=== PATIENT | female | born 1945 | race Caucasian/White ===

== ENCOUNTER 2017-09-14 18:46 | Emergency (ER) | payer OTHER ==
--- OUTSIDE RECORDS SUMMARY | 2017-09-14 18:48 | XMS REPORT ---
:1945 Author Organization eClinicalWorks Care Team Providers Name Role Phone Merced Samuel Provider Role Unavailable Allergies No Known Allergies Problems Problem Type Condition Code Onset Dates Condition Status Problem Sciatica M54.30 Active Problem Obese E66.9 Active Problem Degenerative lumbar disc M51.36 Active Problem Bartholin cyst N75.0 Active Problem Encounter for HCV screening test Z11.59 Active for low risk patient Problem Local infection of the skin and L08.9 Active subcutaneous tissue, unspecified Problem Fatigue R53.83 Active Problem Hyperlipemia E78.5 Active Problem Migraine with status migrainosus, G43.901 Active not intractable, unspecified migraine type Problem Hypothyroidism E03.9 Active Problem Colon polyp K63.5 Active Problem Dupuytren's contracture M72.0 Active Assessment Other injury of unspecified body T14.8XXA Active region, initial encounter Assessment Local infection of the skin and L08.9 Active subcutaneous tissue, unspecified Problem Vitamin B 12 deficiency E53.8 Active Problem Gastro-esophageal reflux disease K21.9 Active without esophagitis Problem Neuropathy, peripheral G62.9 Active Problem Abnormal weight gain R63.5 Active Problem Achilles tendonitis M76.60 Active Problem Family history of diabetes Z83.3 Active mellitus Medications Medication Code System Code Instructions Start Date End Date Status Dosage Bactrim DS [facility] 22785248714 800-160 MG Orally September 13September 18, Active 1 tablet Twice a day 2017 2017 Results No Known Results Summary Purpose eClinicalWorks Submission
--- OUTSIDE RECORDS SUMMARY | 2017-09-14 18:48 | XMS REPORT ---
:1945 Author Organization eClinicalWorks Care Team Providers Name Role Phone Merced Samuel Provider Role Unavailable Allergies, Adverse Reactions, Alerts Substance Reaction Event Type Prednisone migraines Drug Allergy statin myalgias Drug Allergy Steroids migraine Drug Allergy Dexilant muscle cramps Drug Allergy Lyrica edema Drug Allergy Fentanyl migraine Drug Allergy Problems Problem Type Condition Code Onset Dates Condition Status Problem Vitamin B 12 deficiency E53.8 Active Problem Abnormal weight gain R63.5 Active Problem Gastro-esophageal reflux disease K21.9 Active without esophagitis Problem Fatigue R53.83 Active Assessment Insect bite, initial encounter W57.XXXA Active Problem Hyperlipemia E78.5 Active Problem Hypothyroidism E03.9 Active Problem Sciatica M54.30 Active Problem Family history of diabetes Z83.3 Active mellitus Problem Obese E66.9 Active Problem Degenerative lumbar disc M51.36 Active Assessment Dysuria R30.0 Active Problem Migraine with status migrainosus, G43.901 Active not intractable, unspecified migraine type Assessment Encounter for immunization Z23 Active Assessment Cough R05 Active Problem Colon polyp K63.5 Active Problem Dupuytren's contracture M72.0 Active Problem Encounter for HCV screening test Z11.59 Active for low risk patient Problem Neuropathy, peripheral G62.9 Active Problem Bartholin cyst N75.0 Active Problem Achilles tendonitis M76.60 Active Medications Medication Code Code Instructions Start End Status Dosage System Date Date Lexapro [facility] 83966436488 5 MG Orally Active not defined Imitrex [facility] 13779905124 25 MG Orally Active 1 tablet as needed Restasis [facility] 91073085766 0.05 % Active 1 drop into Ophthalmic affected eye Twice a day Xanax [facility] [address]-14 0.5 MG Orally Active 1 tablet Once a day [place] [facility] 98980048946 10-325 MG Active 1 tablet as Orally every 4 needed hours Mupirocin [facility] 90450967014 2 % Externally September 05August Active 1 application Two times a day 2017, to affected 2018 area Protonix [facility] [address]-40 Active not defined Artificial NDC 0 - Ophthalmic Active not defined Tear Solution Results Name Result Date Reference Range Unit Abnormality Flag URINALYSIS AUTO W/O SCOPE (23601) ----NIT N 20170906 ----URO 0.2 20170906 ----PROTEIN N 20170906 ----pH 7.5 20170906 ----BLO N 20170906 ----GLUCOSE N 20170906 ----PEDRITO Trace 20170906 ----BILIRUBIN N 20170906 ----KETONES N 20170906 ----SPECIFIC GRAVITY 1.015 20170906 Immunizations Vaccine Administration Date Prevnar 13 -Pneumonia Vaccine September 05, 2017 Summary Purpose eClinicalWorks Submission
--- NOTE | 2017-09-14 20:11 | ER ---
Nurse's Notes [facility] Name: Bety Ball Age: 72 yrs Sex: Female : 1945 Arrival Date: 09/14/2017 Time: 18:49 Bed 15 Private MD: Vivian Samuel Diagnosis: Suspected bite with non-healing wounds of right ankle Presentation: 09/14 18:52 Presenting complaint: Patient states: "I got bitten by something while I was fishing [employer] about 2 weeks ago and my doctor gave me antibiotics but it's not getting better". Pt states "Now I have red streaks on my right foot that I didn't have before". Transition of care: patient was not received from another setting of care. Onset of symptoms was August 2017. Risk Assessment: Do you want to hurt yourself or someone else? Patient reports no desire to harm self or others. Initial Sepsis Screen: Does the patient meet any 2 criteria? No. Patient's initial sepsis screen is negative. Does the patient have a suspected source of infection? No. Patient's initial sepsis screen is negative. Care prior to arrival: None. 18:52 Method Of Arrival: Ambulatory aa5 18:52 Acuity: TAY 3 aa5 Historical: - Allergies: 18:54 Fentanyl; aa5 18:54 Steroids (migraines); aa5 - PMHx: 18:54 "heart valve leaks"; Gastritis/Esophageal; Stomach Ulcers; aa5 - PSHx: 18:54 Right heel surgery; bilateral knee surgery; neck surgery for pinched nerves; Esophageal aa5 dilation; - Immunization history:: Last tetanus immunization: < 5 years ago. - Social history:: Smoking status: Patient/guardian denies using tobacco. - Ebola Screening: : No symptoms or risks identified at this time. - Family history:: not pertinent. - Hospitalizations: : No recent hospitalization is reported. Screenin:25 Abuse screen: Denies threats or abuse. Denies injuries from another. Nutritional aj1 screening: No deficits noted. Tuberculosis screening: No symptoms or risk factors identified. Fall Risk None identified. Assessment: 19:25 General: Appears in no apparent distress. uncomfortable. aj1 19:25 Pain: Complains of pain in right ankle Pain currently is 8 out of 10 on a pain scale. aj1 Neuro: Level of Consciousness is awake, alert, obeys commands. Cardiovascular: Patient's skin is warm and dry. Respiratory: Airway is patent Respiratory effort is even, unlabored, Respiratory pattern is regular, symmetrical. GI: No signs and/or symptoms were reported involving the gastrointestinal system. : No signs and/or symptoms were reported regarding the genitourinary system. EENT: No signs and/or symptoms were reported regarding the EENT system. Derm: Skin is intact, Skin is normal, redness, swelling, tenderness noted to right ankle. Musculoskeletal: Circulation, motion, and sensation intact. 20:25 Reassessment: Patient appears in no apparent distress at this time. No changes from aj1 previously documented assessment. Patient and/or family updated on plan of care and expected duration. Pain level reassessed. Patient is alert, oriented x 3, equal unlabored respirations, skin warm/dry/pink. 21:06 Reassessment: Patient appears in no apparent distress at this time. No changes from aj1 previously documented assessment. Patient and/or family updated on plan of care and expected duration. Pain level reassessed. Patient is alert, oriented x 3, equal unlabored respirations, skin warm/dry/pink. Vital Signs: 18:54 BP 133 / 55; Pulse 75; Resp 18 S; Temp 98.2(TE); Pulse Ox 97% on R/A; Weight 86.18 kg aa5 (R); Height 5 ft. 5 in. (165.10 cm) (R); Pain 8/10; 18:54 Body Mass Index 31.62 (86.18 kg, 165.10 cm) aa5 ED Course: 18:49 Patient arrived in ED. mr 18:49 Vivian Samuel is Private Physician. mr 18:53 Triage completed. aa5 18:53 Arm band placed on. aa5 19:25 Patient has correct armband on for positive identification. Bed in low position. Call aj1 light in reach. Side rails up X 1. 19:25 No provider procedures requiring assistance completed. aj1 19:45 Shai Spring MD is Attending Physician. rn 20:09 Carson Thompson MD is Referral Physician. rn 20:43 Liseth Piedra RN is Primary Nurse. aj1 21:06 Patient did not have IV access during this emergency room visit. aj1 21:06 Wound care: to abscess located on right ankle was cleaned with Hibiclens, dressed with aj1 band aid. Administered Medications: No medications were administered Outcome: 20:10 Discharge ordered by . rn 21:06 Discharged to home ambulatory. aj1 21:06 Condition: good 21:06 Discharge instructions given to patient, Instructed on discharge instructions, follow up and referral plans. medication usage, Demonstrated understanding of instructions, follow-up care, medications, Prescriptions given X 2. 21:07 Patient left the ED. aj1 Signatures: Liseth Piedra RN RN aj1 Karo Salmon Roman, MD MD rn Calderon, Audri, RN RN aa5 Corrections: (The following items were deleted from the chart) 18:54 18:54 Immunization history: Last tetanus immunization: unknown, aa5 aa5 20:45 20:43 General: Appears aj1 aj1
--- NOTE | 2017-09-14 20:11 | EDPHYS ---
Physician Documentation [facility] Name: Bety Ball Age: 72 yrs Sex: Female : 1945 Arrival Date: 09/14/2017 Time: 18:49 Bed 15 Private MD: Vivian Samuel ED Physician Shai Spring HPI: 09/14 20:04 This 72 yrs old Female presents to ER via Ambulatory with complaints of bite. rn 20:06 The patient was bitten on the right ankle. Onset: The symptoms/episode began/occurred 1 rn week(s) ago. Associated signs and symptoms: Pertinent positives: swelling at site, tenderness. Severity of symptoms: At their worst the symptoms were mild, in the emergency department the symptoms are unchanged. The patient has not experienced similar symptoms in the past. Reports fishing 1-2 weeks ago, didn't feel a bite at that time but since then has noticed 2 spots on inner right ankle, no fever, no fluctuance, on bactrim and ointment, not healing yet, noticed some swollen blood vessels at base of foot as well. . Historical: - Allergies: 18:54 Fentanyl; aa5 18:54 Steroids (migraines); aa5 - PMHx: 18:54 "heart valve leaks"; Gastritis/Esophageal; Stomach Ulcers; aa5 - PSHx: 18:54 Right heel surgery; bilateral knee surgery; neck surgery for pinched nerves; Esophageal aa5 dilation; - Immunization history:: Last tetanus immunization: < 5 years ago. - Social history:: Smoking status: Patient/guardian denies using tobacco. - Ebola Screening: : No symptoms or risks identified at this time. - Family history:: not pertinent. - Hospitalizations: : No recent hospitalization is reported. ROS: 20:06 Constitutional: Negative for fever, chills, and weight loss, Neck: Negative for injury, rn pain, and swelling, Cardiovascular: Negative for chest pain, palpitations, and edema, Respiratory: Negative for shortness of breath, cough, wheezing, and pleuritic chest pain, Abdomen/GI: Negative for abdominal pain, nausea, vomiting, diarrhea, and constipation, MS/Extremity: Negative for deformity, Skin: + rash and discoloration Neuro: Negative for headache, weakness, numbness, tingling, and seizure. Exam: 20:06 Constitutional: This is a well developed, well nourished patient who is awake, alert, rn and in no acute distress. MS/ Extremity: Pulses equal, no cyanosis. Neurovascular intact. Full, normal range of motion. Equal circumference. 2 subcentimeter circular lesions/ulcerations inner right ankle, no surrounding erythema or warmth, + white firm fibrinous tissue surrounding ulcers. No fluctuance. Vital Signs: 18:54 BP 133 / 55; Pulse 75; Resp 18 S; Temp 98.2(TE); Pulse Ox 97% on R/A; Weight 86.18 kg aa5 (R); Height 5 ft. 5 in. (165.10 cm) (R); Pain 8/10; 18:54 Body Mass Index 31.62 (86.18 kg, 165.10 cm) aa5 MDM: 19:46 Patient medically screened. rn 20:06 Differential diagnosis: snake bite, infected insect bites. Data reviewed: vital signs, rn nurses notes, and as a result, I will discharge patient. Counseling: I had a detailed discussion with the patient and/or guardian regarding: the historical points, exam findings, and any diagnostic results supporting the discharge/admit diagnosis, the need for outpatient follow up, to return to the emergency department if symptoms worsen or persist or if there are any questions or concerns that arise at home. Special discussion: I discussed with the patient/guardian in detail that at this point there is no indication for admission to the hospital. It is understood, however, that if the symptoms persist or worsen the patient needs to return immediately for re-evaluation. Administered Medications: No medications were administered Disposition: 09/14/17 20:10 Discharged to Home. Impression: Suspected bite with non-healing wounds of right ankle. - Condition is Stable. - Discharge Instructions: Snake Bite, Insect Bite. - Prescriptions for Bactrim DS 800- 160 mg Oral Tablet - take 1 tablet by ORAL route every 12 hours for 10 days; 20 tablet. Doxycycline Monohydrate 100 mg Oral Tablet - take 1 tablet by ORAL route every 12 hours for 10 days; 20 tablet. - Medication Reconciliation Form, Thank You Letter, Antibiotic Education, Prescription Opioid Use form. - Follow up: Carson Thompson MD; When: As needed; Reason: Recheck today's complaints, Re-evaluation by your physician. - Problem is an ongoing problem. - Symptoms are unchanged. Signatures: Liseth Piedra RN RN aj1 Shai Spring MD MD rn Calderon, Audri, RN RN aa5 Corrections: (The following items were deleted from the chart) 18:54 18:54 Immunization history: Last tetanus immunization: unknown, aa5 aa5 21:07 20:10 09/14/2017 20:10 Discharged to Home. Impression: Suspected bite with non-healing aj1 wounds of right ankle. Condition is Stable. Forms are Medication Reconciliation Form, Thank You Letter, Antibiotic Education, Prescription Opioid Use. Follow up: Carson Thompson; When: As needed; Reason: Recheck today's complaints, Re-evaluation by your physician. Problem is an ongoing problem. Symptoms are unchanged. rn
[2017-09-14 21:19] VITALS: BP 133/55; TEMP 98.2; O2SAT 97
== END 2017-09-14 21:07 | disposition home or self-care (01) ==
LOC: ER 18:46
DX: S91.051A Open bite, right ankle, initial encounter (principal); Z88.8 Allergy status to other drugs, medicaments and biological substances
CPT/HCPCS: 99283

== ENCOUNTER 2017-11-08 12:17 | Emergency (ER) | payer OTHER ==
--- OUTSIDE RECORDS SUMMARY | 2017-11-08 12:20 | XMS REPORT ---
[...] Date End Date Status Dosage Bactrim DS [facility] 52200483945 800-160 MG Orally September 13September 18, Active 1 tablet Twice a day 2017 2017 Results No Known Results Summary Purpose eClinicalWorks Submission
--- OUTSIDE RECORDS SUMMARY | 2017-11-08 12:20 | XMS REPORT ---
[...] End Status Dosage System Date Date Lexapro [facility] 67595545419 5 MG Orally Active not defined Imitrex [facility] 65644216390 25 MG Orally Active 1 tablet as needed Restasis [facility] 06574765382 0.05 % Active 1 drop into Ophthalmic affected eye Twice a day Xanax [facility] [address]-88 0.5 MG Orally Active 1 tablet Once a day [place] [facility] 41008387686 10-325 MG Active 1 tablet as Orally every 4 needed hours Mupirocin [facility] 56721042098 2 % Externally September 05August Active 1 application Two times a day 2017, to affected 2018 area Protonix [facility] [address]-75 Active not defined Artificial NDC 0 - Ophthalmic Active not defined Tear Solution Results Name Result Date Reference Range Unit Abnormality Flag URINALYSIS AUTO W/O SCOPE (94507) ----NIT N 20170906 ----URO 0.2 20170906 ----PROTEIN N 20170906 ----pH 7.5 20170906 ----BLO N 20170906 ----GLUCOSE N 20170906 ----PEDRITO Trace 20170906 ----BILIRUBIN N 20170906 ----KETONES N 20170906 ----SPECIFIC GRAVITY 1.015 20170906 Immunizations Vaccine Administration Date Prevnar 13 -Pneumonia Vaccine September 05, 2017 Summary Purpose eClinicalWorks Submission
--- OUTSIDE RECORDS SUMMARY | 2017-11-08 12:21 | XMS REPORT ---
[...] Active Problem Dupuytren's contracture M72.0 Active Assessment Medicare annual wellness visit, Z00.00 Active initial Problem Vitamin B 12 deficiency E53.8 Active Problem Gastro-esophageal reflux disease K21.9 Active without esophagitis Problem Neuropathy, peripheral G62.9 Active Problem Abnormal weight gain R63.5 Active Problem Achilles tendonitis M76.60 Active Problem Family history of diabetes mellitus Z83.3 Active Medications Medication Code Code Instructions Start End Status Dosage System Date Date Xanax [facility] 78753074755 0.5 MG Orally Active 1 tablet Once a day [place] [facility] 38083111780 10-325 MG Active 1 tablet Orally every 4 as needed hours Imitrex [facility] 40020759156 25 MG Orally Active 1 tablet as needed Protonix [facility] [address]-78 Active not defined Artificial NDC 0 - Ophthalmic Active not Tear Solution defined Results No Known Results Summary Purpose eClinicalWorks Submission
--- OUTSIDE RECORDS SUMMARY | 2017-11-08 12:21 | XMS REPORT ---
[...] Condition Code Onset Dates Condition Status Problem Family history of diabetes mellitus Z83.3 Active Problem Degenerative lumbar disc M51.36 Active Problem Sciatica M54.30 Active Problem Bartholin cyst N75.0 Active Problem Encounter for HCV screening test Z11.59 Active for low risk patient Problem Local infection of the skin and L08.9 Active subcutaneous tissue, unspecified Problem Hyperlipemia E78.5 Active Problem Obese E66.9 Active Problem Migraine with status migrainosus, G43.901 Active not intractable, unspecified migraine type Problem Fatigue R53.83 Active Problem Colon polyp K63.5 Active Assessment Abnormal weight gain R63.5 Active Assessment Fatigue R53.83 Active Problem Achilles tendonitis M76.60 Active Problem Vitamin B 12 deficiency E53.8 Active Problem Dupuytren's contracture M72.0 Active Problem Gastro-esophageal reflux disease K21.9 Active without esophagitis Problem Neuropathy, peripheral G62.9 Active Problem Abnormal weight gain R63.5 Active Medications Medication Code Code Instructions Start End Status Dosage System Date Date Artificial NDC 0 - Ophthalmic Active not Tear Solution defined Protonix [facility] [address]-46 Active not defined Imitrex [facility] 39914378184 25 MG Orally Active 1 tablet as needed Volga [facility] 44272816263 10-325 MG Active 1 tablet Orally every 4 as needed hours Xanax [facility] 71905021630 0.5 MG Orally Active 1 tablet Once a day ProAir HFA [facility] 33137011283 108 (90 Base) September 22, Active 1 to 2 MCG/ACT 2018 puffs as Inhalation needed every 6 hrs Anoro Ellipta [facility] 37193738842 62.5mcg/25 mcg September 23Dec Active 1 puff inhalation once 2017 09, a day 2018 Results No Known Results Summary Purpose eClinicalWorks Submission
--- OUTSIDE RECORDS SUMMARY | 2017-11-08 12:21 | XMS REPORT ---
[...] R53.83 Active Problem Colon polyp K63.5 Active Problem Achilles tendonitis M76.60 Active Problem Vitamin B 12 deficiency E53.8 Active Problem Dupuytren's contracture M72.0 Active Problem Gastro-esophageal reflux disease K21.9 Active without esophagitis Problem Neuropathy, peripheral G62.9 Active Problem Abnormal weight gain R63.5 Active Medications No Known Medications Results No Known Results Summary Purpose eClinicalWorks Submission
--- OUTSIDE RECORDS SUMMARY | 2017-11-08 12:21 | XMS REPORT ---
[...] Active Problem Dupuytren's contracture M72.0 Active Problem Vitamin B 12 deficiency E53.8 Active Problem Gastro-esophageal reflux disease K21.9 Active without esophagitis Problem Neuropathy, peripheral G62.9 Active Problem Abnormal weight gain R63.5 Active Problem Achilles tendonitis M76.60 Active Problem Family history of diabetes mellitus Z83.3 Active Medications Medication Code System Code Instructions Start End Date Status Dosage Date Anoro [place] [facility] 03467727119 62.5mcg/25 mcg September 23, Dec 22, Active 1 puff inhalation once a 20172017 Results No Known Results Summary Purpose eClinicalWorks Submission
--- OUTSIDE RECORDS SUMMARY | 2017-11-08 12:21 | XMS REPORT ---
[...] history of diabetes mellitus Z83.3 Active Medications No Known Medications Results No Known Results Summary Purpose eClinicalWorks Submission
--- OUTSIDE RECORDS SUMMARY | 2017-11-08 12:21 | XMS REPORT ---
[...] Instructions Start End Date Status Dosage Date ProAir HFA [facility] 17154559118 108 (90 Base) September 22, Active 1 to 2 MCG/ACT 2018 puffs as Inhalation every needed 6 hrs Results No Known Results Summary Purpose eClinicalWorks Submission
--- OUTSIDE RECORDS SUMMARY | 2017-11-08 12:21 | XMS REPORT ---
[...] weight gain R63.5 Active Medications Medication Code System Code Instructions Start Date End Date Status Dosage Breo Ellipta [facility] 26275656045 100-25 MCG/INH October 28, Jan 26, Active 1 puff Inhalation Once a 20172017 Results No Known Results Summary Purpose eClinicalWorks Submission
[2017-11-08] MEDS ORDERED: NA CHLORIDE 0.9% 500 ML ONE (13:55)
[2017-11-08] MEDS ORDERED: PROMETHAZINE 25 MG/ML VIAL ONE (13:55)
[2017-11-08] MEDS ORDERED: MEPERIDINE HCL 50 MG/ML AMP ONE (13:55)
--- NOTE | 2017-11-08 16:14 | EDPHYS ---
Physician Documentation [facility] Name: Bety Ball Age: 72 yrs Sex: Female : 1945 Arrival Date: 11/08/2017 Time: 12:24 Bed 16 Private MD: Vivian Samuel ED Physician Shai Spring HPI: 11/08 13:43 This 72 yrs old Female presents to ER via Ambulatory with complaints of High rn Blood Pressure, Headache. 13:43 The patient complains of pain to the diffuse. The patient describes the headache as rn aching. Onset: The symptoms/episode began/occurred 3 day(s) ago. Severity of symptoms: At its worst the pain was moderate, "similar to past headaches", in the emergency department the pain is unchanged. Headache History: The patient has had previous headaches and this one is similar to previous episodes. The patient has experienced similar episodes in the past. Reports used to get "bad migraines" in past, has had some recently, usually imitrex gets rid of them, not this time, states usually demerol and phenergan work for her migraine, no head trauma, no fever, no stiff neck, seen by ophtho prior to arrival and told eyes are not the cause. . Historical: - Allergies: 12:28 Fentanyl; aj 12:28 Steroids (migraines); aj - Home Meds: 12:28 Imitrex Sub-Q [Active]; Zomig oral oral [Active]; [place] 10-325 mg Oral tab 1 tab every aj 4 hours [Active]; Xanax Oral [Active]; Protonix Oral [Active]; - PMHx: 12:28 "heart valve leaks"; Gastritis/Esophageal; Stomach Ulcers; Chronic pain; Migraines; aj - PSHx: 12:28 Right heel surgery; bilateral knee surgery; neck surgery for pinched nerves; Esophageal aj dilation; - Immunization history:: Adult Immunizations up to date. - Social history:: Smoking status: Patient/guardian denies using tobacco. - Ebola Screening: : Patient negative for fever greater than or equal to 101.5 degrees Fahrenheit, and additional compatible Ebola Virus Disease symptoms Patient denies exposure to infectious person Patient denies travel to an Ebola-affected area in the 21 days before illness onset No symptoms or risks identified at this time. - Family history:: not pertinent. - Hospitalizations: : No recent hospitalization is reported. ROS: 13:43 Constitutional: Negative for fever, chills, and weight loss, Eyes: Negative for injury, rn pain, redness, and discharge, Neck: Negative for injury, pain, and swelling, Cardiovascular: Negative for chest pain, palpitations, and edema, Respiratory: Negative for shortness of breath, cough, wheezing, and pleuritic chest pain, Abdomen/GI: Negative for abdominal pain,diarrhea, and constipation, MS/Extremity: Negative for injury and deformity, Skin: Negative for injury, rash, and discoloration, Neuro: + headache, no weakness Exam: 13:43 Constitutional: This is a well developed, well nourished patient who is awake, alert, rn and in no acute distress. Head/Face: Normocephalic, atraumatic. Eyes: Pupils equal round and reactive to light, extra-ocular motions intact. Lids and lashes normal. Conjunctiva and sclera are non-icteric and not injected. Cornea within normal limits. Periorbital areas with no swelling, redness, or edema. ENT: MMM Neck: Trachea midline, no thyromegaly or masses palpated, and no cervical lymphadenopathy. Supple, full range of motion without nuchal rigidity, or vertebral point tenderness. No Meningismus. Skin: Warm, dry with normal turgor. Normal color with no rashes, no lesions, and no evidence of cellulitis. MS/ Extremity: Pulses equal, no cyanosis. Neurovascular intact. Full, normal range of motion. Equal circumference. Neuro: Awake and alert, GCS 15, oriented to person, place, time, and situation. Cranial nerves II-XII grossly intact. Motor strength 5/5 in all extremities. Sensory grossly intact. Vital Signs: 12:28 BP 125 / 75; Pulse 88; Resp 17; Temp 97.8; Pulse Ox 98% on R/A; Weight 88.45 kg; Height aj 5 ft. 5 in. (165.10 cm); 13:30 BP 136 / 62; Pulse 75; Resp 18; Pulse Ox 99% on R/A; rb1 14:30 BP 102 / 57; Pulse 57; Resp 17; Pulse Ox 98% ; rb1 15:00 BP 100 / 43; Pulse 59; Resp 19; Pulse Ox 99% on R/A; rb1 16:00 BP 103 / 51; Pulse 56; Resp 19; Pulse Ox 100% on R/A; rb1 16:50 BP 103 / 56; Pulse 58; Resp 17; Pulse Ox 99% on R/A; rb1 12:28 Body Mass Index 32.45 (88.45 kg, 165.10 cm) aj [place] Coma Score: 16:13 Eye Response: spontaneous(4). Verbal Response: oriented(5). Motor Response: obeys rn commands(6). Total: 15. MDM: 13:32 Patient medically screened. rn 16:00 ED course: + improvement, not resolved, BP too low to give stronger meds, will give rn steroids and toradol. Understands may not have complete resolution of symptoms when discharged. . 16:13 Differential diagnosis: hypertensive headache, migraine, tension headache. Data rn reviewed: vital signs, nurses notes, and as a result, I will discharge patient. Counseling: I had a detailed discussion with the patient and/or guardian regarding: the historical points, exam findings, and any diagnostic results supporting the discharge/admit diagnosis, the need for outpatient follow up, to return to the emergency department if symptoms worsen or persist or if there are any questions or concerns that arise at home. Response to treatment: the patient's symptoms have markedly improved after treatment, and as a result, I will discharge patient. Special discussion: I discussed with the patient/guardian in detail that at this point there is no indication for admission to the hospital. It is understood, however, that if the symptoms persist or worsen the patient needs to return immediately for re-evaluation. Based on the history and exam findings, there is no indication for further emergent testing or inpatient evaluation. I discussed with the patient/guardian the need to see the neurologist for further evaluation of the symptoms. 11/08 13:40 Order name: IV Start; Complete Time: 13:59 rn Administered Medications: 13:59 Drug: Demerol 50 mg Route: IVP; Site: left antecubital; mb3 14:15 Follow up: Response: No adverse reaction; Pain is decreased rb1 13:59 Drug: Phenergan 12.5 mg Route: IVP; Site: left antecubital; mb3 14:15 Follow up: Response: No adverse reaction; Nausea is decreased rb1 14:00 Drug: NS 0.9% 500 ml Route: IV; Rate: bolus; Site: left antecubital; mb3 14:47 Follow up: IV Status: Completed infusion rb1 16:15 Drug: Decadron - Dexamethasone 10 mg Route: IVP; Site: left antecubital; rb1 16:30 Follow up: Response: No adverse reaction rb1 16:18 Drug: TORadol 30 mg Route: IVP; Site: left antecubital; rb1 16:35 Follow up: Response: No adverse reaction; Pain is decreased rb1 Disposition: 11/08/17 16:13 Discharged to Home. Impression: Migraine. - Condition is Stable. - Discharge Instructions: Migraine Headache. - Medication Reconciliation Form, Thank You Letter, Antibiotic Education, Prescription Opioid Use form. - Follow up: Private Physician; When: As needed; Reason: Recheck today's complaints, Re-evaluation by your physician. - Problem is new. - Symptoms have improved. Signatures: Kandis Cruz RN Shai Steve MD MD rn Barber, Rebecca, RN RN rb1 Spencer Loyn RN RN mb3 Corrections: (The following items were deleted from the chart) 16:55 16:13 11/08/2017 16:13 Discharged to Home. Impression: Migraine. Condition is Stable. rb1 Forms are Medication Reconciliation Form, Thank You Letter, Antibiotic Education, Prescription Opioid Use. Follow up: Private Physician; When: As needed; Reason: Recheck today's complaints, Re-evaluation by your physician. Problem is new. Symptoms have improved. rn
--- NOTE | 2017-11-08 16:14 | ER ---
Nurse's Notes [facility] Name: Bety Ball Age: 72 yrs Sex: Female : 1945 Arrival Date: 11/08/2017 Time: 12:24 Bed 16 Private MD: Vivian Samuel Diagnosis: Migraine Presentation: 11/08 12:25 Presenting complaint: Patient states: Reports migraine for 3 days. Tried Imitrex and aj Zomig. Saw Dr Vilchis just FORESTRY AIDE to rule out vision issues. Transition of care: patient was not received from another setting of care. Onset of symptoms was November 05, 2017. Risk Assessment: Do you want to hurt yourself or someone else? Patient reports no desire to harm self or others. Initial Sepsis Screen: Does the patient meet any 2 criteria? No. Patient's initial sepsis screen is negative. Does the patient have a suspected source of infection? No. Patient's initial sepsis screen is negative. Care prior to arrival: None. 12:25 Method Of Arrival: Ambulatory 12:25 Acuity: TAY 4 Triage Assessment: 12:28 Headache History: The patient has had previous headaches and this one is similar to previous episodes. General: Appears in no apparent distress. uncomfortable, Behavior is calm, cooperative, appropriate for age. Pain: Complains of pain in face and scalp. Neuro: Level of Consciousness is awake, alert, obeys commands, Oriented to person, place, time, situation, Appropriate for age Reports headache. Respiratory: Airway is patent Trachea midline Respiratory effort is even, unlabored, Respiratory pattern is regular, symmetrical. Derm: Skin is intact, is healthy with good turgor, Skin is pink, warm \\T\\ dry. normal. 13:20 Pain: Also complains of photophobia, sleeplessness, inability to concentrate. rb1 Historical: - Allergies: 12:28 Fentanyl; aj 12:28 Steroids (migraines); aj - Home Meds: 12:28 Imitrex Sub-Q [Active]; Zomig oral oral [Active]; [place] 10-325 mg Oral tab 1 tab every aj 4 hours [Active]; Xanax Oral [Active]; Protonix Oral [Active]; - PMHx: 12:28 "heart valve leaks"; Gastritis/Esophageal; Stomach Ulcers; Chronic pain; Migraines; aj - PSHx: 12:28 Right heel surgery; bilateral knee surgery; neck surgery for pinched nerves; Esophageal aj dilation; - Immunization history:: Adult Immunizations up to date. - Social history:: Smoking status: Patient/guardian denies using tobacco. - Ebola Screening: : Patient negative for fever greater than or equal to 101.5 degrees Fahrenheit, and additional compatible Ebola Virus Disease symptoms Patient denies exposure to infectious person Patient denies travel to an Ebola-affected area in the 21 days before illness onset No symptoms or risks identified at this time. - Family history:: not pertinent. - Hospitalizations: : No recent hospitalization is reported. Screenin:20 Abuse screen: Denies threats or abuse. Nutritional screening: No deficits noted. rb1 Tuberculosis screening: No symptoms or risk factors identified. Fall Risk None identified. Assessment: 13:20 General: Appears uncomfortable, Behavior is calm, cooperative. Pain: Complains of pain rb1 in forehead, jaw, and right ear Pain currently is 10 out of 10 on a pain scale. Pain began x 3 days ago. Neuro: Level of Consciousness is awake, alert, obeys commands, Oriented to person, place, time, situation. Cardiovascular: Capillary refill < 3 seconds is brisk in bilateral fingers. Respiratory: Airway is patent Respiratory effort is even, unlabored, Respiratory pattern is regular, symmetrical. GI: No signs and/or symptoms were reported involving the gastrointestinal system. : No signs and/or symptoms were reported regarding the genitourinary system. Derm: Skin is pink, warm \\T\\ dry. 14:19 Reassessment: Patient appears in no apparent distress at this time. rb1 15:20 Reassessment: Patient and/or family updated on plan of care and expected duration. Pain rb1 level reassessed. Patient is alert, oriented x 3, equal unlabored respirations, skin warm/dry/pink. requested pain medication. Provider notified. 16:20 Reassessment: Patient appears in no apparent distress at this time. Patient and/or rb1 family updated on plan of care and expected duration. Pain level reassessed. Patient is alert, oriented x 3, equal unlabored respirations, skin warm/dry/pink. Pt. medicated for pain. Vital Signs: 12:28 BP 125 / 75; Pulse 88; Resp 17; Temp 97.8; Pulse Ox 98% on R/A; Weight 88.45 kg; Height aj 5 ft. 5 in. (165.10 cm); 13:30 BP 136 / 62; Pulse 75; Resp 18; Pulse Ox 99% on R/A; rb1 14:30 BP 102 / 57; Pulse 57; Resp 17; Pulse Ox 98% ; rb1 15:00 BP 100 / 43; Pulse 59; Resp 19; Pulse Ox 99% on R/A; rb1 16:00 BP 103 / 51; Pulse 56; Resp 19; Pulse Ox 100% on R/A; rb1 16:50 BP 103 / 56; Pulse 58; Resp 17; Pulse Ox 99% on R/A; rb1 12:28 Body Mass Index 32.45 (88.45 kg, 165.10 cm) aj [place] Coma Score: 16:13 Eye Response: spontaneous(4). Verbal Response: oriented(5). Motor Response: obeys rn commands(6). Total: 15. ED Course: 12:24 Patient arrived in ED. sb2 12:24 Vivian Samuel is Private Physician. sb2 12:26 Triage completed. aj 12:28 Arm band placed on right wrist. Patient placed in waiting room, Patient notified of aj wait time. 13:20 Patient has correct armband on for positive identification. Bed in low position. Call rb1 light in reach. Side rails up X 1. Pulse ox on. NIBP on. 13:27 Talita Meng, RN is Primary Nurse. rb1 13:32 Shai Spring MD is Attending Physician. rn 13:49 Inserted saline lock: 22 gauge in left antecubital area, using aseptic technique. Blood mb3 collected. 16:55 No provider procedures requiring assistance completed. IV discontinued, intact, rb1 bleeding controlled, No redness/swelling at site. Pressure dressing applied. Administered Medications: 13:59 Drug: Demerol 50 mg Route: IVP; Site: left antecubital; mb3 14:15 Follow up: Response: No adverse reaction; Pain is decreased rb1 13:59 Drug: Phenergan 12.5 mg Route: IVP; Site: left antecubital; mb3 14:15 Follow up: Response: No adverse reaction; Nausea is decreased rb1 14:00 Drug: NS 0.9% 500 ml Route: IV; Rate: bolus; Site: left antecubital; mb3 14:47 Follow up: IV Status: Completed infusion rb1 16:15 Drug: Decadron - Dexamethasone 10 mg Route: IVP; Site: left antecubital; rb1 16:30 Follow up: Response: No adverse reaction rb1 16:18 Drug: TORadol 30 mg Route: IVP; Site: left antecubital; rb1 16:35 Follow up: Response: No adverse reaction; Pain is decreased rb1 Outcome: 16:13 Discharge ordered by . rn 16:55 Patient left the ED. rb1 16:55 Discharged to home ambulatory. rb1 16:55 Discharged to home with family. 16:55 Condition: stable 16:55 Instructed on discharge instructions, follow up and referral plans. Demonstrated understanding of instructions, follow-up care, Prescriptions given X none Signatures: Kandis Cruz RN Shai Steve MD MD rn Barber, Rebecca RN RN rb1 Sheila Quesada sb2 Spencer Lyon RN RN mb3
[2017-11-08] MEDS ORDERED: KETOROLAC 30 MG/ML INJ ONE (16:16)
[2017-11-08] MEDS ORDERED: DEXAMETHASONE 10 MG/ML VIAL ONE (16:16)
[2017-11-08 17:01] VITALS: TEMP 97.8
[2017-11-08 17:06] VITALS: BP 103/51; O2SAT 100
== END 2017-11-08 16:55 | disposition home or self-care (01) ==
LOC: ER 12:17
DX: G43.909 Migraine, unspecified, not intractable, without status migrainosus (principal); I10 Essential (primary) hypertension; Z88.6 Allergy status to analgesic agent; Z88.8 Allergy status to other drugs, medicaments and biological substances
CPT/HCPCS: 96361; 96374; 96375; 99284; J1100; J2175; J2550

== ENCOUNTER 2018-03-06 11:10 | Emergency (ER) | payer OTHER ==
--- OUTSIDE RECORDS SUMMARY | 2018-03-06 11:12 | XMS REPORT ---
[...] End Status Dosage System Date Date Lexapro [facility] 25945528240 5 MG Orally Active not defined Imitrex [facility] 49788954855 25 MG Orally Active 1 tablet as needed Restasis [facility] 84466521897 0.05 % Active 1 drop into Ophthalmic affected eye Twice a day Xanax [facility] [address]-54 0.5 MG Orally Active 1 tablet Once a day X[place] [facility] 18305524498 10-325 MG Active 1 tablet as Orally every 4 needed hours Mupirocin [facility] 63271420712 2 % Externally September 05August Active 1 application Two times a day 2017, to affected 2018 area Protonix [facility] [address]-19 Active not defined Artificial NDC 0 - Ophthalmic Active not defined Tear Solution Results Name Result Date Reference Range Unit Abnormality Flag URINALYSIS AUTO W/O SCOPE (08624) ----NIT N [id number] ----URO 0.2 20170906 ----PROTEIN N [id number] ----pH 7.5 20170906 ----BLO N [id number] ----GLUCOSE N [id number] ----PEDRITO Trace [id number] ----BILIRUBIN N [id number] ----KETONES N [id number] ----SPECIFIC GRAVITY 1.015 [id number] Immunizations Vaccine Administration Date Prevnar 13 -Pneumonia Vaccine September 05, 2017 Summary Purpose eClinicalWorks Submission
--- OUTSIDE RECORDS SUMMARY | 2018-03-06 11:12 | XMS REPORT ---
[...] Date End Date Status Dosage Bactrim DS [facility] 75211086557 800-160 MG Orally September 13September 18, Active 1 tablet Twice a day 2017 2017 Results No Known Results Summary Purpose eClinicalWorks Submission
--- OUTSIDE RECORDS SUMMARY | 2018-03-06 11:13 | XMS REPORT ---
[...] Date End Date Status Dosage Breo Ellipta [facility] 26575938216 100-25 MCG/INH October 28, Jan 26, Active 1 puff Inhalation Once a 20172017 Results No Known Results Summary Purpose eClinicalWorks Submission
--- OUTSIDE RECORDS SUMMARY | 2018-03-06 11:13 | XMS REPORT ---
[...] End Date Status Dosage Date Anoro Markusta [facility] 76104262384 62.5mcg/25 mcg September 23, Dec 22, Active 1 puff inhalation once a 20172017 Results No Known Results Summary Purpose eClinicalWorks Submission
--- OUTSIDE RECORDS SUMMARY | 2018-03-06 11:13 | XMS REPORT ---
[...] M54.30 Active Problem Bartholin cyst N75.0 Active Assessment Weakness R53.1 Active Problem Encounter for HCV screening test Z11.59 Active for low risk patient Assessment Weight gain R63.5 Active Problem Local infection of the skin and L08.9 Active subcutaneous tissue, unspecified Problem Hyperlipemia E78.5 Active Problem Obese E66.9 Active Problem Migraine with status migrainosus, G43.901 Active not intractable, unspecified migraine type Problem Fatigue R53.83 Active Problem Anemia, unspecified type D64.9 Active Problem Colon polyp K63.5 Active Assessment Fatigue, unspecified type R53.83 Active Problem Achilles tendonitis M76.60 Active Problem Vitamin B 12 deficiency E53.8 Active Problem Dupuytren's contracture M72.0 Active Problem Gastro-esophageal reflux disease K21.9 Active without esophagitis Problem Neuropathy, peripheral G62.9 Active Problem Abnormal weight gain R63.5 Active Medications Medication Code Code Instructions Start End Status Dosage System Date Date Artificial NDC 0 - Ophthalmic Active not Tear Solution defined [place] [facility] 05698358621 10-325 MG Active 1 tablet Orally every 4 as needed hours Protonix [facility] [address]-87 Active not defined ProAir HFA [facility] 14906526646 108 (90 Base) September 22, Active 1 to 2 MCG/ACT 2017 puffs as Inhalation needed every 6 hrs Xanax [facility] 40532567904 0.5 MG Orally Active 1 tablet Once a day Imitrex [facility] 96775302312 25 MG Orally Active 1 tablet as needed Results No Known Results Summary Purpose eClinicalWorks Submission
--- OUTSIDE RECORDS SUMMARY | 2018-03-06 11:13 | XMS REPORT ---
[...] End Date Status Dosage Date ProAir HFA [facility] 57183116737 108 (90 Base) September 22, Active 1 to 2 MCG/ACT 2018 puffs as Inhalation every needed 6 hrs Results No Known Results Summary Purpose eClinicalWorks Submission
--- OUTSIDE RECORDS SUMMARY | 2018-03-06 11:13 | XMS REPORT ---
[...] End Status Dosage System Date Date Xanax [facility] 61366485478 0.5 MG Orally Active 1 tablet Once a day [place] [facility] 10957190432 10-325 MG Active 1 tablet Orally every 4 as needed hours Imitrex [facility] 93530926620 25 MG Orally Active 1 tablet as needed Protonix [facility] [address]-82 Active not defined Artificial NDC 0 - Ophthalmic Active not Tear Solution defined Results No Known Results Summary Purpose eClinicalWorks Submission
--- OUTSIDE RECORDS SUMMARY | 2018-03-06 11:13 | XMS REPORT ---
[...] not Tear Solution defined Protonix [facility]NOTE 2] [address]-81 Active not defined Imitrex [facility]NOTE 2] 50752256706 25 MG Orally Active 1 tablet as needed [place] [facility]NOTE 2] 19801038224 10-325 MG Active 1 tablet Orally every 4 as needed hours Xanax [facility][NOTE 2] 82817410538 0.5 MG Orally Active 1 tablet Once a day ProAir HFA [facility][NOTE 2] 94753608278 108 (90 Base) September 22, Active 1 to 2 MCG/ACT 2018 puffs as Inhalation needed every 6 hrs Anoro Ellipta [facility][NOTE 2] 30530143573 62.5mcg/25 mcg September 23Dec Active 1 puff inhalation once 2017 09, a day 2018 Results No Known Results Summary Purpose eClinicalWorks Submission
[2018-03-06] MEDS ORDERED: NA CHLORIDE 0.9% 1,000 ML ONE (11:42)
[2018-03-06 11:53] LABS: Absolute Lymphocytes (CBC) 1.2 K/uL (0.7-4.9); Absolute Monocytes 0.4 K/uL (0.1-1.3); Absolute Neutrophil 2.1 K/uL (1.8-8.0); Eosinophils % 1.7 % (0-4.4); Hematocrit 39.2 % (36.0-45.0); Lymphocytes % 31.5 % (15.3-44.8); MCH 30.3 pg (27.0-35.0); MCV 89.4 fL (80-100); MPV 8.5 fL (7.6-11.3); Monocytes % 10.9 % (3.3-12.3); RBC Red Blood Cell Count 4.39 M/uL (3.86-4.86)
[2018-03-06 12:00] LABS: Protime INR 1.09
[2018-03-06 12:19] LABS: ALT/SGPT 23 U/L (12-78); AST/SGOT 17 U/L (15-37); Albumin 3.8 g/dL (3.4-5.0); Alkaline Phosphatase 91 U/L (45-117); BUN Blood Urea Nitrogen 15 mg/dL (7-18); Bicarbonate 30 mmol/L (21-32); Bilirubin Direct 0.2 mg/dL (0-0.2); Bilirubin Total 0.4 mg/dL (0.2-1.0); Glucose Level 80 mg/dL (74-106); Magnesium 2.2 mg/dL (1.8-2.4); NT PRO-BNP 85 pg/mL (<125); Potassium 3.7 mmol/L (3.5-5.1); Protein, Total 7.7 g/dL (6.4-8.2); Sodium Level 141 mmol/L (136-145); Troponin (Emerg Dept Use Only) < 0.02 ng/mL (0.0-0.045)
--- NOTE | 2018-03-06 12:41 | RAD REPORT ---
EXAM DESCRIPTION: RAD - Chest Single View - 03/06/2018 12:07 pm CLINICAL HISTORY: COUGH Chest pain. COMPARISON: Chest Pa And Lat (2 Views) dated 09/19/2017; Chest Single View dated 03/07/2017; CHEST SIN GLE VIEW dated 10/25/2014; CHEST PA AND LAT 2 VIEW dated 08/11/2013 FINDINGS: Portable technique limits examination quality. The lungs are grossly clear. The heart is upper limit of normal in size. No displaced fractures.Cervi winter hardware plate noted. IMPRESSION: No acute intrathoracic process suspected.
[2018-03-06 12:45] LABS: Urine Blood NEGATIVE (NEG); Urine Glucose NEGATIVE (NEG); Urine Protein NEGATIVE (NEG); Urine Specific Gravity 1.015 (1.005-1.030); Urine pH 7.5 (5.0-7.0)
[2018-03-06 13:34] LABS: Arterial Blood Carboxyhemoglob 0.6 % (0-1.5); Blood Gas Oxyhemoglobin 95.5 % (94-97); Blood O2 Saturation 97.1 % (92-98.5)
--- NOTE | 2018-03-06 14:12 | RAD REPORT ---
EXAM DESCRIPTION: CT - Chest For Pe Angio - 03/06/2018 2:02 pm CLINICAL HISTORY: Chest pain. DYSPNEA COMPARISON: No comparisons TECHNIQUE: CT angiogram of the pulmonary arteries was performed with MIP. All CT scans are performed using dose optimization technique as appropriate and may include automated exposure control or mA/KV adjustment according to patient size. FINDINGS: No evidence of pulmonary thromboembolism. No acute aortic finding demonstrated. The lungs are mildly emphysematous but clear. No significant pericardial or pleural fluid. Small hiatal hernia. No concerning bony finding. IMPRESSION: No evidence of pulmonary thromboembolism. Mild COPD.
[2018-03-06] MEDS ORDERED: ASPIRIN 81 MG CHEWABLE TABLET ONE (14:25)
--- NOTE | 2018-03-06 14:33 | RAD REPORT ---
EXAM DESCRIPTION: US - Extrem Venous W Compress [place] - 03/06/2018 2:24 pm CLINICAL HISTORY: PAIN Bilateral leg edema and swelling. COMPARISON: EXTREMITY NONVASCULAR dated 04/29/2015 TECHNIQUE: Real-time sonographic interrogation of the left and right lower extremity deep venous sys tems was performed. FINDINGS: Normal compressibility, flow augmentation, phasic flow and spontaneous flow is identified in both the left and right lower extremity deep venous systems. IMPRESSION: No sonographic evidence of left or right lower extremity deep venous thrombosis.
--- NOTE | 2018-03-06 14:36 | ER ---
Nurse's Notes [facility] Name: Bety Ball Age: 72 yrs Sex: Female : 1945 Arrival Date: 03/06/2018 Time: 11:17 Bed 16 Private MD: Diagnosis: Dyspnea;Chronic obstructive pulmonary disease, unspecified Presentation: 03/06 11:17 Presenting complaint: Patient states: SOB and labored breathing x 2 months, has been sv seeing her PCP but pt reports symptoms have worsened. c/o midsternal chest discomfort. Transition of care: patient was not received from another setting of care. Onset of symptoms was December 2017. Care prior to arrival: None. 11:17 Method Of Arrival: Wheelchair sv 11:17 Acuity: TAY 3 sv 11:25 Risk Assessment: Do you want to hurt yourself or someone else? Patient reports no hj desire to harm self or others. Initial Sepsis Screen: Does the patient meet any 2 criteria? No. Patient's initial sepsis screen is negative. Does the patient have a suspected source of infection? No. Patient's initial sepsis screen is negative. Triage Assessment: 11:17 General: Appears in no apparent distress. uncomfortable, Behavior is cooperative, sv appropriate for age, anxious. Pain: Complains of pain in chest Pain currently is 5 out of 10 on a pain scale. Quality of pain is described as heavy. Neuro: Level of Consciousness is awake, alert, obeys commands, Oriented to person, place, time, situation, Moves all extremities. Full function. Respiratory: Airway is patent Respiratory effort is even, labored, Respiratory pattern is symmetrical, snoring. 11:25 General: Appears in no apparent distress. uncomfortable, Behavior is calm, cooperative, hj appropriate for age. Respiratory: Reports shortness of breath Onset: The symptoms/episode began/occurred 2 months, the patient has mild shortness of breath. Historical: - Allergies: 11:19 Fentanyl; sv 11:19 Steroids (migraines); sv - Home Meds: 11:31 Imitrex Sub-Q [Active]; [place] 10-325 mg Oral tab 1 tab every 4 hours [Active]; Protonix hj Oral [Active]; Xanax Oral [Active]; Zomig Oral [Active]; - PMHx: 11:19 "heart valve leaks"; Chronic pain; Gastritis/Esophageal; Migraines; Stomach Ulcers; sv Pulmonary fibrosis; - PSHx: 11:19 Right heel surgery; bilateral knee surgery; neck surgery for pinched nerves; Esophageal sv dilation; - Immunization history:: Adult Immunizations unknown. - Social history:: Smoking status: Patient/guardian denies using tobacco, Patient/guardian denies using alcohol. - Ebola Screening: : Patient negative for fever greater than or equal to 101.5 degrees Fahrenheit, and additional compatible Ebola Virus Disease symptoms Patient denies exposure to infectious person Patient denies travel to an Ebola-affected area in the 21 days before illness onset. - Family history:: not pertinent. Screenin:22 Abuse screen: Denies threats or abuse. Denies injuries from another. Nutritional hj screening: No deficits noted. Tuberculosis screening: No symptoms or risk factors identified. Fall Risk None identified. Assessment: 11:23 Pain: Complains of pain in chest. Cardiovascular: Rhythm is. Respiratory: Airway is hj patent Respiratory effort is even, labored, Respiratory pattern is regular, symmetrical, 12:26 Reassessment: Patient and/or family updated on plan of care and expected duration. Pain hj level reassessed. Patient is alert, oriented x 3, equal unlabored respirations, skin warm/dry/pink. awaiting reports and POC:. 13:09 Reassessment: called the lab for ad on; D dimer; labels sent;. hj 13:10 Reassessment: communication electronic technician paged for ABG;. hj 13:28 Reassessment: communication electronic technician in room for ABG;. hj 13:43 Reassessment: elevated D dimerMD notified by KOBE Rosario;. hj Vital Signs: 11:20 BP 112 / 82; Pulse 78; Resp 22; Temp 97; Pulse Ox 100% ; Weight 88.45 kg; Height 5 ft. sv 5 in. (165.10 cm); Pain 5/10; 12:26 BP 126 / 78; Pulse 65; Resp 18; Pulse Ox 100% on R/A; hj 13:30 BP 124 / 75; Pulse 67; Resp 18; Pulse Ox 100% on R/A; hj 15:21 BP 125 / 75; Pulse 98; Resp 18; Pulse Ox 100% on R/A; hj 11:20 Body Mass Index 32.45 (88.45 kg, 165.10 cm) sv ED Course: 11:17 Patient arrived in ED. sv 11:19 Triage completed. sv 11:21 Arm band placed on. sv 11:22 Ezekiel Armenta RN is Primary Nurse. hj 11:26 Gaston Haas MD is Attending Physician. giselle 11:26 Patient has correct armband on for positive identification. Placed in gown. Bed in low hj position. Call light in reach. Side rails up X 1. 11:45 Initial lab(s) drawn, by me, sent to lab. First set of blood cultures drawn EKG done, hj by business office technician. reviewed by Gaston Haas MD Flu and/or RSV swab sent to lab. 11:47 Flu Sent. hj 11:47 Inserted saline lock: 22 gauge in right antecubital area, using aseptic technique. hj Blood collected. 12:06 X-ray completed. Portable x-ray completed in exam room. Patient tolerated procedure ls3 well. 12:19 Urine Culture Sent. hj 13:44 Notified ED physician of a critical lab result(s). [id number]-xglmb=[id number]. iw 14:24 Ultrasound completed. Patient tolerated well. aa4 14:35 Walter Clemente MD is Referral Physician. giselle 15:20 No provider procedures requiring assistance completed. IV discontinued, intact, hj bleeding controlled, No redness/swelling at site. Pressure dressing applied. Administered Medications: 11:40 Drug: NS 0.9% 1000 ml Route: IV; Rate: 125 ml/hr; Site: right antecubital; hj 13:48 Drug: NS 0.9% 500 ml Route: IV; Rate: bolus; Site: right antecubital; hj 15:00 Follow up: IV Status: Completed infusion; IV Intake: 500ml hj 14:28 Drug: Aspirin 81 mg Route: PO; hj 14:28 Follow up: Response: No adverse reaction hj Intake: 15:00 IV: 500ml; Total: 500ml. hj Outcome: 14:35 Discharge ordered by . giselle 15:20 Discharged to home ambulatory. hj 15:20 Condition: stable 15:20 Discharge instructions given to patient, family, Instructed on discharge instructions, follow up and referral plans. no driving heavy equipment, Demonstrated understanding of instructions, follow-up care, medications, Prescriptions given X 1. 15:21 Patient left the ED. hj Signatures: AlbaCharisse RN RN sv Anderson, Corey, MD MD cha Williams, Irene, RN RN Kandis [place] aa4 Ezekiel Armenta RN RN hj Siler, Lynzie ls3 Corrections: (The following items were deleted from the chart) 11:21 11:17 Presenting complaint: Patient states: SOB and labored breathing x 2 months, has sv been seeing her PCP but pt reports symptoms have worsened. 11:22 11:20 Pulse 78bpm; Resp 22bpm; Pulse Ox 100%; Temp 97F; 88.45 kg; Height 5 ft. 5 in.; sv BMI: 32.4; Pain 5/10; sv
--- NOTE | 2018-03-06 14:36 | EDPHYS ---
Physician Documentation [facility] Name: Bety Ball Age: 72 yrs Sex: Female : 1945 Arrival Date: 03/06/2018 Time: 11:17 Bed 16 Private MD: ED Physician Gaston Haas HPI: 03/06 12:58 This 72 yrs old Female presents to ER via Wheelchair with complaints of giselle Shortness Of Breath. 12:58 The patient has shortness of breath at rest, with light activity. Onset: The giselle symptoms/episode began/occurred 14 day(s) ago. Duration: The symptoms are continuous, and are steadily getting worse. The patient's shortness of breath has no apparent modifying factors. Associated signs and symptoms: The patient has no apparent associated signs or symptoms. Severity of symptoms: At their worst the symptoms were mild in the emergency department the symptoms are unchanged. The patient has experienced similar episodes in the past, several times. Historical: - Allergies: 11:19 Fentanyl; sv 11:19 Steroids (migraines); sv - Home Meds: 11:31 Imitrex Sub-Q [Active]; [place] 10-325 mg Oral tab 1 tab every 4 hours [Active]; Protonix hj Oral [Active]; Xanax Oral [Active]; Zomig Oral [Active]; - PMHx: 11:19 "heart valve leaks"; Chronic pain; Gastritis/Esophageal; Migraines; Stomach Ulcers; sv Pulmonary fibrosis; - PSHx: 11:19 Right heel surgery; bilateral knee surgery; neck surgery for pinched nerves; Esophageal sv dilation; - Immunization history:: Adult Immunizations unknown. - Social history:: Smoking status: Patient/guardian denies using tobacco, Patient/guardian denies using alcohol. - Ebola Screening: : Patient negative for fever greater than or equal to 101.5 degrees Fahrenheit, and additional compatible Ebola Virus Disease symptoms Patient denies exposure to infectious person Patient denies travel to an Ebola-affected area in the 21 days before illness onset. - Family history:: not pertinent. ROS: 12:58 Constitutional: Negative for fever, chills, and weight loss, Eyes: Negative for injury, giselle pain, redness, and discharge, ENT: Negative for injury, pain, and discharge, Neck: Negative for injury, pain, and swelling, Cardiovascular: Negative for chest pain, palpitations, and edema, Abdomen/GI: Negative for abdominal pain, nausea, vomiting, diarrhea, and constipation, Back: Negative for injury and pain, : Negative for injury, bleeding, discharge, and swelling, MS/Extremity: Negative for injury and deformity, Skin: Negative for injury, rash, and discoloration, Neuro: Negative for headache, weakness, numbness, tingling, and seizure, Psych: Negative for depression, anxiety, suicide ideation, homicidal ideation, and hallucinations, Allergy/Immunology: Negative for hives, rash, and allergies, Endocrine: Negative for neck swelling, polydipsia, polyuria, polyphagia, and marked weight changes, Hematologic/Lymphatic: Negative for swollen nodes, abnormal bleeding, and unusual bruising. 12:58 Respiratory: Positive for cough, shortness of breath, on exertion. Exam: 12:58 Constitutional: This is a well developed, well nourished patient who is awake, alert, giselle and in no acute distress. Head/Face: Normocephalic, atraumatic. Eyes: Pupils equal round and reactive to light, extra-ocular motions intact. Lids and lashes normal. Conjunctiva and sclera are non-icteric and not injected. Cornea within normal limits. Periorbital areas with no swelling, redness, or edema. ENT: Nares patent. No nasal discharge, no septal abnormalities noted. Tympanic membranes are normal and external auditory canals are clear. Oropharynx with no redness, swelling, or masses, exudates, or evidence of obstruction, uvula midline. Mucous membranes moist. Neck: Trachea midline, no thyromegaly or masses palpated, and no cervical lymphadenopathy. Supple, full range of motion without nuchal rigidity, or vertebral point tenderness. No Meningismus. Chest/axilla: Normal chest wall appearance and motion. Nontender with no deformity. No lesions are appreciated. Cardiovascular: Regular rate and rhythm with a normal S1 and S2. No gallops, murmurs, or rubs. Normal PMI, no JVD. No pulse deficits. Respiratory: Lungs have equal breath sounds bilaterally, clear to auscultation and percussion. No rales, rhonchi or wheezes noted. No increased work of breathing, no retractions or nasal flaring. Abdomen/GI: Soft, non-tender, with normal bowel sounds. No distension or tympany. No guarding or rebound. No evidence of tenderness throughout. Back: No spinal tenderness. No costovertebral tenderness. Full range of motion. Skin: Warm, dry with normal turgor. Normal color with no rashes, no lesions, and no evidence of cellulitis. MS/ Extremity: Pulses equal, no cyanosis. Neurovascular intact. Full, normal range of motion. Neuro: Awake and alert, GCS 15, oriented to person, place, time, and situation. Cranial nerves II-XII grossly intact. Motor strength 5/5 in all extremities. Sensory grossly intact. Cerebellar exam normal. Normal gait. Psych: Awake, alert, with orientation to person, place and time. Behavior, mood, and affect are within normal limits. 12:58 Musculoskeletal/extremity: DVT Exam: No signs of deep vein thrombosis. no pain, no swelling, no tenderness, negative Homans' sign noted on exam, no appreciated bluish discoloration, no erythema, no increased warmth. Vital Signs: 11:20 BP 112 / 82; Pulse 78; Resp 22; Temp 97; Pulse Ox 100% ; Weight 88.45 kg; Height 5 ft. sv 5 in. (165.10 cm); Pain 5/10; 12:26 BP 126 / 78; Pulse 65; Resp 18; Pulse Ox 100% on R/A; hj 13:30 BP 124 / 75; Pulse 67; Resp 18; Pulse Ox 100% on R/A; hj 15:21 BP 125 / 75; Pulse 98; Resp 18; Pulse Ox 100% on R/A; hj 11:20 Body Mass Index 32.45 (88.45 kg, 165.10 cm) sv MDM: 11:26 Patient medically screened. [facility] 12:59 Data reviewed: vital signs, nurses notes, lab test result(s), EKG, radiologic studies, [facility] CT scan, plain films. 03/06 11:28 Order name: Basic Metabolic Panel; Complete Time: 12:56 [facility] 03/06 11:28 Order name: CBC with Diff; Complete Time: 12:56 [facility] 03/06 11:28 Order name: LFT's; Complete Time: 12:56 [facility] 03/06 11:28 Order name: Magnesium; Complete Time: 12:56 [facility] 03/06 11:28 Order name: NT PRO-BNP; Complete Time: 12:56 [facility] 03/06 11:28 Order name: PT-INR; Complete Time: 12:56 [facility] 03/06 11:28 Order name: Troponin (emerg Dept Use Only); Complete Time: 12:56 [facility] 03/06 11:28 Order name: Urine Culture [facility] 03/06 11:28 Order name: Flu; Complete Time: 12:56 [facility] 03/06 11:28 Order name: Blood Culture Adult (2) [facility] 03/06 12:19 Order name: Urine Dipstick--Ancillary (enter results) 03/06 12:46 Order name: Urine Dipstick-Ancillary; Complete Time: 12:56 [facility] 03/06 12:58 Order name: ABG: room air [facility] 03/06 12:58 Order name: D-Dimer [facility] 03/06 11:21 Order name: EKG; Complete Time: 11:22 sv 03/06 11:21 Order name: EKG - Nurse/Tech; Complete Time: 11:32 sv 03/06 11:28 Order name: XRAY Chest (1 view) [facility] 03/06 11:28 Order name: Cardiac monitoring; Complete Time: 11:32 [facility] 03/06 11:28 Order name: IV Saline Lock; Complete Time: 11:47 [facility] 03/06 11:28 Order name: Labs collected and sent; Complete Time: 11:47 [facility] 03/06 12:42 Order name: RAD; Complete Time: 12:56 [facility] 03/06 13:43 Order name: D-Dimer; Complete Time: 14:13 [facility] 03/06 13:44 Order name: US Extremity Venous W Compression Cecilio [facility] 03/06 13:44 Order name: CT Chest For PE Angio [facility] 03/06 13:54 Order name: ABG Arterial Blood Gas; Complete Time: 14:13 [facility] 03/06 14:13 Order name: CT; Complete Time: 14:13 [facility] 03/06 14:34 Order name: US [facility] 03/06 11:28 Order name: O2 Per Protocol; Complete Time: 11:32 [facility] 03/06 11:28 Order name: O2 Sat Monitoring; Complete Time: 11:32 [facility] 03/06 11:28 Order name: Urine Dipstick-Ancillary (obtain specimen); Complete Time: 12:19 [facility] Administered Medications: 11:40 Drug: NS 0.9% 1000 ml Route: IV; Rate: 125 ml/hr; Site: right antecubital; hj 13:48 Drug: NS 0.9% 500 ml Route: IV; Rate: bolus; Site: right antecubital; 15:00 Follow up: IV Status: Completed infusion; IV Intake: 500ml 14:28 Drug: Aspirin 81 mg Route: PO; 14:28 Follow up: Response: No adverse reaction Disposition: 03/06/18 14:35 Discharged to Home. Impression: Dyspnea, Chronic obstructive pulmonary disease, unspecified. - Condition is Stable. - Discharge Instructions: Chronic Bronchitis, How to Use an Inhaler, Cough, Adult, [id number], Aspirin and Your Heart, Cough, Adult. - Prescriptions for Albuterol Sulfate 90 mcg/actuation - inhale 1-2 puff by INHALATION route every 4-6 hours; 1 Inhaler. - Medication Reconciliation Form, Thank You Letter, Antibiotic Education, Prescription Opioid Use form. - Follow up: Private Physician; When: 2 - 3 days; Reason: Recheck today's complaints, Continuance of care, Re-evaluation by your physician. Follow up: Walter Clemente MD; When: 2 - 3 days; Reason: Recheck today's complaints, Re-evaluation by your physician. - Problem is new. - Symptoms have improved. Signatures: Dispatcher [employer] Charisse Tidwell RN RN Gaston Shetty MD MD cha Joaquin, Henry, RN RN Corrections: (The following items were deleted from the chart) 15:21 14:35 03/06/2018 14:35 Discharged to Home. Impression: Dyspnea; Chronic obstructive hj pulmonary disease, unspecified. Condition is Stable. Forms are Medication Reconciliation Form, Thank You Letter, Antibiotic Education, Prescription Opioid Use. Follow up: Private Physician; When: 2 - 3 days; Reason: Recheck today's complaints, Continuance of care, Re-evaluation by your physician. Follow up: Walter Clemente; When: 2 - 3 days; Reason: Recheck today's complaints, Re-evaluation by your physician. Problem is new. Symptoms have improved. giselle
[2018-03-06 15:32] VITALS: TEMP 97; O2SAT 100
[2018-03-06 15:35] VITALS: BP 125/75
--- NOTE | 2018-03-06 22:07 | EKG ---
Test Date: 2018-03-06 Test Time: 11:33:50 Road Design Engineer: NATHANIEL MEASUREMENT RESULTS: Intervals: Rate: 68 UT: 136 QRSD: 88 QT: 408 QTc: 433 [place]: P: 52 UT: 136 QRS: -10 T: 50 INTERPRETIVE STATEMENTS: Normal sinus rhythm Normal ECG Compared to ECG 03/08/2017 07:23:41 No significant changes Electronically Signed On 03-06-18 22:06:14 PHARMACY LABORATORY TECHNICIAN by Valentino Owusu
== END 2018-03-06 15:21 | disposition home or self-care (01) ==
LOC: ER 11:10
DX: J44.9 Chronic obstructive pulmonary disease, unspecified (principal); R06.00 Dyspnea, unspecified; Z88.5 Allergy status to narcotic agent; Z88.8 Allergy status to other drugs, medicaments and biological substances
CPT/HCPCS: 36415; 71045; 71275; 80048; 80076; 81003; 82805; 83735; 83880; 84484; 85025; 85379; 85610; 87040 ×2; 87086; 87088; 87804 ×2; 93005; 93970; J7030; Q9967; 96360; 99284

== ENCOUNTER 2018-05-04 14:24 | Emergency (ER) | payer OTHER ==
--- OUTSIDE RECORDS SUMMARY | 2018-05-04 14:26 | XMS REPORT ---
[...] End Date Status Dosage Date ProAir HFA [facility] [id number] 108 (90 Base) September 22, Active 1 to 2 MCG/ACT 2018 puffs as Inhalation every needed 6 hrs Results No Known Results Summary Purpose eClinicalWorks Submission
--- OUTSIDE RECORDS SUMMARY | 2018-05-04 14:26 | XMS REPORT ---
[...] Date End Date Status Dosage Bactrim DS [facility] 89599334196 800-160 MG Orally September 13September 18, Active 1 tablet Twice a day 2017 2017 Results No Known Results Summary Purpose eClinicalWorks Submission
--- OUTSIDE RECORDS SUMMARY | 2018-05-04 14:26 | XMS REPORT ---
[...] End Status Dosage System Date Date Lexapro [facility] 39525826282 5 MG Orally Active not defined Imitrex [facility] 79891725006 25 MG Orally Active 1 tablet as needed Restasis [facility] 36177037582 0.05 % Active 1 drop into Ophthalmic affected eye Twice a day Xanax [facility] [address]-36 0.5 MG Orally Active 1 tablet Once a day [place] [facility] 03139141123 10-325 MG Active 1 tablet as Orally every 4 needed hours Mupirocin [facility] 21307179203 2 % Externally September 05August Active 1 application Two times a day 2017, to affected 2018 area Protonix [facility] [address]-26 Active not defined Artificial NDC 0 - Ophthalmic Active not defined Tear Solution Results Name Result Date Reference Range Unit Abnormality Flag URINALYSIS AUTO W/O SCOPE (78448) ----NIT N [id number] ----URO 0.2 20170906 ----PROTEIN N [id number] ----pH 7.5 20170906 ----BLO N [id number] ----GLUCOSE N 20170906 ----PEDRITO Trace [id number] ----BILIRUBIN N [id number] ----KETONES N [id number] ----SPECIFIC GRAVITY 1.015 [id number] Immunizations Vaccine Administration Date Prevnar 13 -Pneumonia Vaccine September 05, 2017 Summary Purpose eClinicalWorks Submission
--- OUTSIDE RECORDS SUMMARY | 2018-05-04 14:26 | XMS REPORT ---
:1945 [facility] Address [address] [place] [address] Dr. Amaya[address] [place] [id number] Care Team Providers Name Role Phone Unavailable Unavailable Unavailable Problems This patient has no known problems. Allergies, Adverse Reactions, Alerts This patient has no known allergies or adverse reactions. Medications This patient has no known medications.
--- OUTSIDE RECORDS SUMMARY | 2018-05-04 14:27 | XMS REPORT ---
:1945 Author Organization eClinicalWorks Care Team Providers Name Role Phone Merced Samuel Provider Role Unavailable Allergies No Known Allergies Problems Problem Type Condition Code Onset Dates Condition Status Problem Obese E66.9 Active Problem Encounter for HCV screening test Z11.59 Active for low risk patient Problem Migraine with status migrainosus, G43.901 Active not intractable, unspecified migraine type Problem Pulmonary emphysema, unspecified J43.9 Active emphysema type Problem Anemia, unspecified type D64.9 Active Problem Chronic obstructive pulmonary J44.9 Active disease, unspecified COPD type Assessment Hyperthyroidism E05.90 Active Problem Hyperthyroidism E05.90 Active Problem Fatigue R53.83 Active Problem Hyperlipemia E78.5 Active Problem Local infection of the skin and L08.9 Active subcutaneous tissue, unspecified Problem Bartholin cyst N75.0 Active Problem Neuropathy, peripheral G62.9 Active Problem Achilles tendonitis M76.60 Active Problem Colon polyp K63.5 Active Problem Dupuytren's contracture M72.0 Active Problem Abnormal weight gain R63.5 Active Problem Family history of diabetes mellitus Z83.3 Active Problem Vitamin B 12 deficiency E53.8 Active Problem Sciatica M54.30 Active Problem Gastro-esophageal reflux disease K21.9 Active without esophagitis Problem Degenerative lumbar disc M51.36 Active Medications No Known Medications Results No Known Results Summary Purpose eClinicalWorks Submission
--- OUTSIDE RECORDS SUMMARY | 2018-05-04 14:27 | XMS REPORT ---
[...] End Date Status Dosage Date Anoro Markusta [facility] 15525359451 62.5mcg/25 mcg September 23, Dec 22, Active 1 puff inhalation once a 20172017 Results No Known Results Summary Purpose eClinicalWorks Submission
--- OUTSIDE RECORDS SUMMARY | 2018-05-04 14:27 | XMS REPORT ---
[...] pulmonary J44.9 Active disease, unspecified COPD type Problem Hyperthyroidism E05.90 Active Problem Fatigue R53.83 [...]
--- OUTSIDE RECORDS SUMMARY | 2018-05-04 14:27 | XMS REPORT ---
[...] - Ophthalmic Active not Tear Solution defined [place] [facility] 24467346954 10-325 MG Active 1 tablet Orally every 4 as needed hours Protonix [facility] [address]-81 Active not defined ProAir HFA [facility] [id number] 108 (90 Base) September 22, Active 1 to 2 MCG/ACT 2017 puffs as Inhalation needed every 6 hrs Xanax [facility] 10805532523 0.5 MG Orally Active 1 tablet Once a day Imitrex [facility] 16677265422 25 MG Orally Active 1 tablet as needed Results No Known Results Summary Purpose eClinicalWorks Submission
--- OUTSIDE RECORDS SUMMARY | 2018-05-04 14:27 | XMS REPORT ---
[...] End Status Dosage System Date Date Xanax [facility] 50869777998 0.5 MG Orally Active 1 tablet Once a day Kim [facility] 13872732504 10-325 MG Active 1 tablet Orally every 4 as needed hours Imitrex [facility] 02174939018 25 MG Orally Active 1 tablet as needed Protonix [facility] [address]-08 Active not defined Artificial NDC 0 - Ophthalmic Active not Tear Solution defined Results No Known Results Summary Purpose eClinicalWorks Submission
--- OUTSIDE RECORDS SUMMARY | 2018-05-04 14:27 | XMS REPORT ---
[...] Date End Date Status Dosage Breo Ellipta [facility] 79469785368 100-25 MCG/INH October 28, Jan 26, Active 1 puff Inhalation Once a 20172017 Results No Known Results Summary Purpose eClinicalWorks Submission
--- OUTSIDE RECORDS SUMMARY | 2018-05-04 14:27 | XMS REPORT ---
[...] Ophthalmic Active not Tear Solution defined Protonix [facility] [address]-89 Active not defined Imitrex [facility] 63828328007 25 MG Orally Active 1 tablet as needed [place] [facility] [id number] 10-325 MG Active 1 tablet Orally every 4 as needed hours Xanax [facility] [id number] 0.5 MG Orally Active 1 tablet Once a day ProAir HFA [facility] [id number] 108 (90 Base) September 22, Active 1 to 2 MCG/ACT 2018 puffs as Inhalation needed every 6 hrs Anoro Ellipta [facility] [id number] 62.5mcg/25 mcg September 23Dec Active 1 puff inhalation once 2017 09, a day 2018 Results No Known Results Summary Purpose eClinicalWorks Submission
[2018-05-04] MEDS ORDERED: LIDOCAINE VISCOUS 2% SOLN 15 ML UDC ONE (18:55)
[2018-05-04 19:03] LABS: Albumin 3.8 g/dL (3.4-5.0); Bilirubin Direct 0.1 mg/dL (0-0.2); Bilirubin Total 0.4 mg/dL (0.2-1.0); Protein, Total 7.6 g/dL (6.4-8.2)
--- NOTE | 2018-05-04 20:50 | RAD REPORT ---
EXAM DESCRIPTION: CT - Abdomen Pelvis W Contrast - 05/04/2018 8:36 pm CLINICAL HISTORY: Abdominal pain. Rectal bleeding COMPARISON: 2016 TECHNIQUE: Computed axial tomography of the abdomen and pelvis was obtained. 100 cc Isovue-300 is ad ministered intravenously. Oral contrast was given. All CT scans are performed using dose optimization technique as appropriate and may include automated exposure control or mA/KV adjustment according to patient size. FINDINGS: The liver, spleen, pancreas, adrenals and kidneys appear unremarkable. The appendix is normal caliber. There is no evidence of diverticulitis An adnexal mass is not noted IMPRESSION: No acute abnormality displayed
--- NOTE | 2018-05-04 21:56 | EDPHYS ---
Physician Documentation [facility] Name: Bety Ball Age: 72 yrs Sex: Female : 1945 Arrival Date: 05/04/2018 Time: 14:27 Bed 24 Private MD: ED Physician Shakeel Jackson HPI: 05/04 17:47 This 72 yrs old Female presents to ER via Ambulatory with complaints of jmm Rectal Bleeding, Rectal Pain. 17:47 The patient presents to the emergency department with bleeding from the rectum/anus. jmm Onset: The symptoms/episode began/occurred gradually, 4 day(s) ago. Modifying factors: The symptoms are alleviated by nothing, The symptoms are aggravated by bowel movement. Associate signs and symptoms: Pertinent positives: abdominal pain in the left upper quadrant, constipation, Pertinent negatives:. This is a 72 year old female with a history of chronic pain presents to the ED with rectal bleeding beginning approx 4 days ago. Patient states she is chronically constipated. Pain is worsened with bowel movement. Patient states her bleeding is bright red. Also complains of lower left upper quad abdominal pain which the patient states is chronic. Denies vomiting, fever, diarrhea. . Historical: - Allergies: 14:37 Fentanyl; hb 14:37 Steroids (migraines); hb - Home Meds: 14:37 Imitrex Sub-Q [Active]; [place] 10-325 mg Oral tab 1 tab every 4 hours [Active]; Protonix hb Oral [Active]; Xanax Oral [Active]; Zomig Oral [Active]; - PMHx: 14:37 "heart valve leaks"; Chronic pain; Gastritis/Esophageal; Migraines; pulmonary fibrosis; hb Stomach Ulcers; - PSHx: 14:37 Right heel surgery; bilateral knee surgery; neck surgery for pinched nerves; Esophageal hb dilation; - Immunization history:: Adult Immunizations up to date. - Social history:: Smoking status: Patient/guardian denies using tobacco. - Ebola Screening: : No symptoms or risks identified at this time. ROS: 17:49 Constitutional: Negative for fever, chills, and weight loss, Cardiovascular: Negative jmm for chest pain, palpitations, and edema, Respiratory: Negative for shortness of breath, cough, wheezing, and pleuritic chest pain. 17:49 Abdomen/GI: Positive for abdominal pain, rectal pain, rectal bleeding. 17:49 All other systems are negative. Exam: 17:49 Constitutional: This is a well developed, well nourished patient who is awake, alert, jm and in no acute distress. Head/Face: atraumatic. Eyes: EOMI, no conjunctival erythema appreciated ENT: Moist Mucus Membranes Neck: Trachea midline, Supple Chest/axilla: Normal chest wall appearance and motion. Cardiovascular: Regular rate and rhythm. No edema appreciated Respiratory: Normal respirations, no respiratory distress appreciated 17:49 Back: Normal ROM Skin: General appearance color normal MS/ Extremity: Moves all extremities, no obvious deformities appreciated, no edema noted to the lower extremities Neuro: Awake and alert, normal gait Psych: Behavior is normal, Mood is normal, Patient is cooperative and pleasant 17:49 Abdomen/GI: Inspection: abdomen appears normal, Bowel sounds: normal, Palpation: soft, in the left upper quadrant, mild abdominal tenderness, in the left lower quadrant. 21:50 Abdomen/GI: Rectal exam: external hemorrhoid noted at the 0900 position. [facility] Vital Signs: 14:35 BP 132 / 70; Pulse 91; Resp 16; Temp 97.5; Pulse Ox 97% on R/A; Pain 5/10; hb 18:22 BP 124 / 78; Pulse 84; Resp 16; Temp 98.8; Pulse Ox 99% on R/A; Pain 4/10; ch 20:00 BP 125 / 70; Pulse 80; Resp 17; Pulse Ox 99% ; rr5 21:15 BP 131 / 82; Pulse 72; Resp 17; Pulse Ox 100% ; rr5 MDM: 17:45 Patient medically screened. [facility] 21:50 Data reviewed: vital signs, nurses notes, lab test result(s), radiologic studies, CT [facility] scan. Counseling: I had a detailed discussion with the patient and/or guardian regarding: the historical points, exam findings, and any diagnostic results supporting the discharge/admit diagnosis, radiology results, the need for outpatient follow up, to return to the emergency department if symptoms worsen or persist or if there are any questions or concerns that arise at home. ED course: Labs unremarkable. Symptoms appear most likely due to external hemorrhoids. Patient advised to follow up with gen surgery or gi for further evaluation due to abdominal pain. patient given return precautions. patient understood and agrees with the plan of care. . 05/04 17:45 Order name: Basic Metabolic Panel; Complete Time: 19:58 [facility] 05/04 17:45 Order name: CBC with Diff; Complete Time: 20:17 [facility] 05/04 17:45 Order name: Creatinine for Radiology; Complete Time: 19:58 [facility] 05/04 17:45 Order name: Hepatic Function; Complete Time: 19:58 [facility] 05/04 17:45 Order name: Lipase; Complete Time: 19:58 [facility] 05/04 17:45 Order name: Type And Screen; Complete Time: 20:09 [facility] 05/04 17:45 Order name: IV Saline Lock; Complete Time: 18:11 [facility] 05/04 17:45 Order name: Labs collected and sent; Complete Time: 18:11 [facility] 05/04 17:45 Order name: CT Abd/Pelvis - W/Contrast; Complete Time: 20:56 [facility] 05/04 20:58 Order name: ABO/RH no charge; Complete Time: 20:59 EDMS Administered Medications: 18:45 Drug: Viscous Lidocaine Liquid (4 %) 2 ml Route: Mucous Membrane; Disposition: 05/04/18 21:56 Discharged to Home. Impression: Other hemorrhoids. - Condition is Stable. - Discharge Instructions: High-Fiber Diet, Hemorrhoids. - Prescriptions for Anusol- HC 2.5 % Rectal Cream - Apply to affected area 1 application by TOPICAL route every 8 hours As needed; 30 gram. - Medication Reconciliation Form, Thank You Letter, Antibiotic Education, Prescription Opioid Use form. - Follow up: Private Physician; When: 2 - 3 days; Reason: Recheck today's complaints, Continuance of care, Re-evaluation by your physician. Addendum: 05/11/2018 09:36 Co-signature as Attending Physician, Shakeel Jackson MD I agree with the assessment and k dr plan of care. Signatures: Dispatcher [employer] EDMS Vianey Judge, RN RN Shakeel Jackson MD MD kdr Mickail, Joel, PA PA jmm Baxter, Heather RN RN Mathieu Molina RN RN rr5 Corrections: (The following items were deleted from the chart) 05/04 22:10 21:56 05/04/2018 21:56 Discharged to Home. Impression: Other hemorrhoids. Condition is rr5 Stable. Forms are Medication Reconciliation Form, Thank You Letter, Antibiotic Education, Prescription Opioid Use. Follow up: Private Physician; When: 2 - 3 days; Reason: Recheck today's complaints, Continuance of care, Re-evaluation by your physician. alesia
--- NOTE | 2018-05-04 21:56 | ER ---
Nurse's Notes [facility] Name: Bety Ball Age: 72 yrs Sex: Female : 1945 Arrival Date: 05/04/2018 Time: 14:27 Bed 24 Private MD: Diagnosis: Other hemorrhoids Presentation: 05/04 14:35 Presenting complaint: Patient states: Rectal pain and bleeding after being constipated hb 3 days ago. Transition of care: patient was not received from another setting of care. Onset of symptoms was May 01, 2018. Risk Assessment: Do you want to hurt yourself or someone else? Patient reports no desire to harm self or others. Initial Sepsis Screen: Does the patient meet any 2 criteria? No. Patient's initial sepsis screen is negative. Does the patient have a suspected source of infection? No. Patient's initial sepsis screen is negative. Care prior to arrival: None. 14:35 Method Of Arrival: Ambulatory hb 14:35 Acuity: TAY 3 hb Historical: - Allergies: 14:37 Fentanyl; hb 14:37 Steroids (migraines); hb - Home Meds: 14:37 Imitrex Sub-Q [Active]; [place] 10-325 mg Oral tab 1 tab every 4 hours [Active]; Protonix hb Oral [Active]; Xanax Oral [Active]; Zomig Oral [Active]; - PMHx: 14:37 "heart valve leaks"; Chronic pain; Gastritis/Esophageal; Migraines; pulmonary fibrosis; hb Stomach Ulcers; - PSHx: 14:37 Right heel surgery; bilateral knee surgery; neck surgery for pinched nerves; Esophageal hb dilation; - Immunization history:: Adult Immunizations up to date. - Social history:: Smoking status: Patient/guardian denies using tobacco. - Ebola Screening: : No symptoms or risks identified at this time. Screenin:22 Abuse screen: Denies threats or abuse. Denies injuries from another. Nutritional ch screening: No deficits noted. Tuberculosis screening: No symptoms or risk factors identified. Fall Risk None identified. Assessment: 18:22 General: Appears in no apparent distress. comfortable, Behavior is calm, cooperative, ch appropriate for age. Pain: Complains of pain in left lower quadrant, perineum and anus Pain currently is 8 out of 10 on a pain scale. Pain began suddenly. Neuro: No deficits noted. Respiratory: Airway is patent Respiratory effort is even, unlabored, Breath sounds are clear bilaterally. GI: Abdomen is round non-distended, Bowel sounds present X 4 quads. Abd is soft and non tender X 4 quads. Reports lower abdominal pain, constipation, rectal bleeding. : No signs and/or symptoms were reported regarding the genitourinary system. Derm: Skin is pink, warm \\T\\ dry. 19:07 Reassessment: Patient appears in no apparent distress at this time. No changes from ch previously documented assessment. Patient and/or family updated on plan of care and expected duration. Pain level reassessed. Patient is alert, oriented x 3, equal unlabored respirations, skin warm/dry/pink. pt states she feels slightly nauseous, declines medications for it. awaiting CT scan. pt finished contrast around 1800. report given to mathieu. 19:13 General: Appears in no apparent distress. comfortable, Behavior is calm, cooperative, rr5 appropriate for age. Pain: Complains of pain in anus Pain does not radiate. Pain currently is 6 out of 10 on a pain scale. Quality of pain is described as aching, discomfort Pain began suddenly, Is intermittent. Neuro: Level of Consciousness is awake, alert, obeys commands, Oriented to person, place, time, situation, Appropriate for age. Cardiovascular: Capillary refill < 3 seconds Patient's skin is warm and dry. Respiratory: Airway is patent Respiratory effort is even, unlabored, Respiratory pattern is regular, symmetrical. GI: Abdomen is round non-distended. GI: Reports constipation, rectal bleeding, rectal pain. : No signs and/or symptoms were reported regarding the genitourinary system. EENT: No signs and/or symptoms were reported regarding the EENT system. Derm: Skin is pink, warm \\T\\ dry. Musculoskeletal: Capillary refill < 3 seconds, Range of motion: intact in all extremities. 20:00 Reassessment: Patient appears in no apparent distress at this time. No changes from rr5 previously documented assessment. follow up to Ct scan procedure. 21:00 Reassessment: Patient appears in no apparent distress at this time. No changes from rr5 previously documented assessment. awaiting for CT result. 21:20 Reassessment: Patient appears in no apparent distress at this time. reassess by ED rr5 provider, awaiting for hemoglobin and hematocrit level. Vital Signs: 14:35 BP 132 / 70; Pulse 91; Resp 16; Temp 97.5; Pulse Ox 97% on R/A; Pain 5/10; hb 18:22 BP 124 / 78; Pulse 84; Resp 16; Temp 98.8; Pulse Ox 99% on R/A; Pain 4/10; ch 20:00 BP 125 / 70; Pulse 80; Resp 17; Pulse Ox 99% ; rr5 21:15 BP 131 / 82; Pulse 72; Resp 17; Pulse Ox 100% ; rr5 ED Course: 14:27 Patient arrived in ED. as 14:36 Triage completed. hb 14:37 Arm band placed on left wrist. hb 17:21 Anil Camilo PA is PHCP. jmm 17:21 Shakeel Jackson MD is Attending Physician. jmm 18:11 Inserted saline lock: 18 gauge in right antecubital area, using aseptic technique. ds4 Blood collected. 18:17 Vianey Judge, RN is Primary Nurse. ch 18:22 No apparent distress. Resting quietly. ch 18:22 Patient has correct armband on for positive identification. Placed in gown. Bed in low ch position. Call light in reach. Side rails up X 1. Pulse ox on. NIBP on. Warm blanket given. 18:22 No provider procedures requiring assistance completed. ch 19:09 Report given to Mathieu. ch 19:12 Mathieu Díaz, RN is Primary Nurse. rr5 20:22 Patient moved to RI via wheelchair. nj 20:37 CT completed. Patient tolerated procedure well. Patient moved back from RI. vm2 20:38 CT Abd/Pelvis - W/Contrast In Process Unspecified. EDMS 22:10 IV discontinued, intact, bleeding controlled, No redness/swelling at site. Pressure rr5 dressing applied. Administered Medications: 18:45 Drug: Viscous Lidocaine Liquid (4 %) 2 ml Route: Mucous Membrane; Outcome: 21:56 Discharge ordered by . jmm 22:08 Discharged to home ambulatory. rr5 22:08 Condition: stable 22:08 Discharge instructions given to patient, Instructed on discharge instructions, follow up and referral plans. medication usage, Demonstrated understanding of instructions, follow-up care, medications, Prescriptions given X 1. 22:10 Patient left the ED. rr5 Signatures: Dispatcher [employer] Vianey Rodríguez, RN RN Anil Vanegas PA PA jmm Martinez, Amelia as Swanson, Donovan ds4 Lynne Macedo, RN RN Bruce Langston Victoria 2 Mathieu Díaz RN RN rr5
[2018-05-04 23:42] VITALS: BP 131/82; O2SAT 100
[2018-05-04 23:58] VITALS: TEMP 100.7
== END 2018-05-04 22:10 | disposition home or self-care (01) ==
LOC: ER 14:24
DX: K62.5 Hemorrhage of anus and rectum (principal); Z88.5 Allergy status to narcotic agent; Z88.8 Allergy status to other drugs, medicaments and biological substances; K64.8 Other hemorrhoids
CPT/HCPCS: 36415; 74177; 80048; 80076; 83690; 85025; 86850; 86900; 86901; Q9967

== ENCOUNTER 2019-02-24 16:04 | Emergency (ER) | payer OTHER ==
[2019-02-24] MEDS ORDERED: NA CHLORIDE 0.9% 1,000 ML ONE (16:34)
[2019-02-24] MEDS ORDERED: KETOROLAC 30 MG/ML INJ ONE (16:34)
[2019-02-24] MEDS ORDERED: METOCLOPRAMIDE 10 MG/2mL INJ ONE (16:34)
[2019-02-24] MEDS ORDERED: MEPERIDINE HCL 50 MG/ML ONE (16:34)
[2019-02-24 16:51] LABS: Absolute Lymphocytes (CBC) 1.1 K/uL (0.7-4.9); Basophils % 0.7 % (0-1.3); Hematocrit 34.1 % (36.0-45.0); Lymphocytes % 25.8 % (15.3-44.8); MPV 8.8 fL (7.6-11.3); RBC Red Blood Cell Count 3.92 M/uL (3.86-4.86)
[2019-02-24 17:06] LABS: Albumin 3.6 g/dL (3.4-5.0); Bilirubin Total 0.3 mg/dL (0.2-1.0); Potassium 4.3 mmol/L (3.5-5.1); Protein, Total 7.1 g/dL (6.4-8.2)
--- NOTE | 2019-02-24 17:12 | RAD REPORT ---
EXAM DESCRIPTION: CT - Head Brain Wo Cont - 02/24/2019 4:54 pm CLINICAL HISTORY: Headache COMPARISON: None. TECHNIQUE: Axial 5 mm thick images of the head were obtained without IV contrast. All CT scans are performed using dose optimization technique as appropriate and may include automated exposure control or mA/KV adjustment according to patient size. FINDINGS: No epidural or subdural hematoma. No subarachnoid hemorrhage or cortical contusion changes identifiable. Hyperdensity along the right lateral frontal lobe (image 15-18/33) a believed to be ar tifacts related to dense bone rather than cortical contusion. No acute infarction changes seen. No ab normal extra-axial fluid collections. Ventricles are normal. Physiologic calcifications are present. Mastoid air cells and visualized portions of the paranasal sinuses are clear. No acute bony findings. IMPRESSION: Negative non-contrast CT head examination for acute or significant finding.
--- NOTE | 2019-02-24 17:54 | ER ---
Nurse's Notes [facility] Name: Bety Ball Age: 73 yrs Sex: Female : 1945 Arrival Date: 02/24/2019 Time: 16:06 Bed 26 Private MD: Diagnosis: Headache;Migraine Presentation: 02/24 16:08 Presenting complaint: Patient states: [place] for the last five days after exposure to oven la1 cleaners, has tried imitrex and zomig without relief. Transition of care: patient was not received from another setting of care. Onset of symptoms was February 24, 2019. Risk Assessment: Do you want to hurt yourself or someone else? Patient reports no desire to harm self or others. Initial Sepsis Screen: Does the patient meet any 2 criteria? No. Patient's initial sepsis screen is negative. Does the patient have a suspected source of infection? No. Patient's initial sepsis screen is negative. Care prior to arrival: None. 16:08 Method Of Arrival: Ambulatory la1 16:08 Acuity: TAY 3 la1 Triage Assessment: 16:20 Headache History: The patient has had previous headaches and this one is more severe rv than previous episodes. General: Appears in no apparent distress. uncomfortable, Behavior is calm, cooperative. Pain: Complains of pain in head Pain Pain began 5 days ago Also complains of inability to perform activities of daily living, sleeplessness. Historical: - Allergies: 16:09 Fentanyl; la1 16:09 Steroids (migraines); la1 16:10 Morphine; la1 - PMHx: 16:09 "heart valve leaks"; Chronic pain; Gastritis/Esophageal; Migraines; pulmonary fibrosis; la1 Stomach Ulcers; - Immunization history:: Adult Immunizations up to date. - Social history:: Smoking status: Patient/guardian denies using tobacco. - Ebola Screening: : No symptoms or risks identified at this time. - Family history:: not pertinent. Screenin:19 Abuse screen: Denies threats or abuse. Denies injuries from another. Nutritional rv screening: No deficits noted. Tuberculosis screening: No symptoms or risk factors identified. Fall Risk None identified. Assessment: 16:18 General: Appears in no apparent distress. uncomfortable, Behavior is calm, cooperative. rv Pain: Complains of pain in head. Neuro: Level of Consciousness is awake, alert, obeys commands, Oriented to person, place, time, situation. Neuro: Reports headache in entire since 5 days ago. Cardiovascular: Patient's skin is warm and dry. Respiratory: Airway is patent. GI: No signs and/or symptoms were reported involving the gastrointestinal system. : No signs and/or symptoms were reported regarding the genitourinary system. EENT: No signs and/or symptoms were reported regarding the EENT system. Derm: Skin is healthy with good turgor. Musculoskeletal: No signs and/or symptoms reported regarding the musculoskeletal system. Vital Signs: 16:09 BP 140 / 66; Pulse 70; Resp 16; Temp 98.7; Pulse Ox 100% on R/A; Weight 87.54 kg; la1 Height 5 ft. 5 in. (165.10 cm); 17:03 BP 121 / 54; Pulse 87; Resp 16; Pulse Ox 99% on R/A; rv 18:09 BP 117 / 64; Pulse 81; Resp 18; Pulse Ox 99% on R/A; rv 16:09 Body Mass Index 32.12 (87.54 kg, 165.10 cm) la1 ED Course: 16:06 Patient arrived in ED. mr 16:09 Triage completed. la1 16:09 Arm band placed on left wrist. la1 16:13 Demario Blackwood, DUSTIN is Primary Nurse. rv 16:19 Gaston Haas MD is Attending Physician. giselle 16:20 Patient has correct armband on for positive identification. Bed in low position. Call rv light in reach. Side rails up X 1. Pulse ox on. NIBP on. 16:30 Inserted saline lock: 20 gauge in right antecubital area, using aseptic technique. rv 16:48 CT Head Brain wo Cont Sent. rv 16:53 CT completed. Patient tolerated procedure well. Patient moved back from CT. bq 17:53 Chaparro Vergara MD is Referral Physician. giselle 18:10 No provider procedures requiring assistance completed. rv 18:42 IV discontinued, intact, bleeding controlled, No redness/swelling at site. Pressure rv dressing applied. Administered Medications: 16:40 Drug: NS 0.9% 1000 ml Route: IV; Rate: 1 bolus; Site: right antecubital; rv 18:08 Follow up: IV Status: Completed infusion; IV Intake: 1000ml rv 16:40 Drug: Demerol 50 mg Route: IVP; Site: right antecubital; rv 17:03 Follow up: Response: No adverse reaction; Pain is unchanged, physician notified; RASS: rv Alert and Calm (0) 16:40 Drug: Reglan 20 mg Route: IVP; Site: right antecubital; rv 17:03 Follow up: Response: No adverse reaction rv 16:41 Drug: TORadol 30 mg Route: IVP; Site: right antecubital; rv 17:03 Follow up: Response: No adverse reaction rv 18:00 Drug: Benadryl 25 mg Route: IVP; Site: right antecubital; rv 18:41 Follow up: Response: No adverse reaction rv 18:00 Drug: Demerol 25 mg {Note: rass.} Route: IVP; Site: right antecubital; rv 18:40 Follow up: Response: No adverse reaction; RASS: Alert and Calm (0) rv 18:02 Drug: Zofran 4 mg Route: IVP; Site: right antecubital; rv 18:40 Follow up: Response: No adverse reaction rv Intake: 18:08 IV: 1000ml; Total: 1000ml. rv Outcome: 17:53 Discharge ordered by MD. desai 18:41 Discharged to home ambulatory, with a friend who came to pick her up to take her home rv 18:41 Condition: good 18:41 Discharge instructions given to patient, Instructed on discharge instructions, follow up and referral plans. medication usage, Demonstrated understanding of instructions, follow-up care, medications, Prescriptions given X 2. 18:42 Patient left the ED. iw Signatures: Gaston Haas MD MD cha Rivera, Mary mr Quilty, Betty bq Williams, Irene, RN RN iw Cl Douglas RN RN la1 Demario Blackwood RN RN rv
--- NOTE | 2019-02-24 17:54 | EDPHYS ---
Physician Documentation [facility] Name: Bety Ball Age: 73 yrs Sex: Female : 1945 Arrival Date: 02/24/2019 Time: 16:06 Bed 26 Private MD: ED Physician Gaston Haas HPI: 02/24 16:29 This 73 yrs old Female presents to ER via Ambulatory with complaints of giselle Headache. 16:29 The patient complains of pain to the top of head, forehead, left frontal area, left giselle temporal area, right frontal area and right temporal area. The patient describes the headache as constant. Onset: The symptoms/episode began/occurred 5 day(s) ago. Associated signs and symptoms: The patient has no apparent associated signs or symptoms. Severity of symptoms: At its worst the pain was mild, moderate, in the emergency department the pain is unchanged. Headache History: The patient has had previous headaches and this one is similar to previous episodes. The patient has experienced similar episodes in the past, multiple times. Historical: - Allergies: 16:09 Fentanyl; la1 16:09 Steroids (migraines); la1 16:10 Morphine; la1 - PMHx: 16:09 "heart valve leaks"; Chronic pain; Gastritis/Esophageal; Migraines; pulmonary fibrosis; la1 Stomach Ulcers; - Immunization history:: Adult Immunizations up to date. - Social history:: Smoking status: Patient/guardian denies using tobacco. - Ebola Screening: : No symptoms or risks identified at this time. - Family history:: not pertinent. ROS: 16:29 Constitutional: Negative for fever, chills, and weight loss, Eyes: Negative for injury, giselle pain, redness, and discharge, ENT: Negative for injury, pain, and discharge, Neck: Negative for injury, pain, and swelling, Cardiovascular: Negative for chest pain, palpitations, and edema, Respiratory: Negative for shortness of breath, cough, wheezing, and pleuritic chest pain, Abdomen/GI: Negative for abdominal pain, nausea, vomiting, diarrhea, and constipation, Back: Negative for injury and pain, : Negative for injury, bleeding, discharge, and swelling, MS/Extremity: Negative for injury and deformity, Skin: Negative for injury, rash, and discoloration, Psych: Negative for depression, anxiety, suicide ideation, homicidal ideation, and hallucinations, Allergy/Immunology: Negative for hives, rash, and allergies, Endocrine: Negative for neck swelling, polydipsia, polyuria, polyphagia, and marked weight changes, Hematologic/Lymphatic: Negative for swollen nodes, abnormal bleeding, and unusual bruising. 16:29 Neuro: Positive for headache. Exam: 16:29 Constitutional: This is a well developed, well nourished patient who is awake, alert, giselle and in no acute distress. Head/Face: Normocephalic, atraumatic. Eyes: Pupils equal round and reactive to light, extra-ocular motions intact. Lids and lashes normal. Conjunctiva and sclera are non-icteric and not injected. Cornea within normal limits. Periorbital areas with no swelling, redness, or edema. ENT: Nares patent. No nasal discharge, no septal abnormalities noted. Tympanic membranes are normal and external auditory canals are clear. Oropharynx with no redness, swelling, or masses, exudates, or evidence of obstruction, uvula midline. Mucous membranes moist. Neck: Trachea midline, no thyromegaly or masses palpated, and no cervical lymphadenopathy. Supple, full range of motion without nuchal rigidity, or vertebral point tenderness. No Meningismus. Chest/axilla: Normal chest wall appearance and motion. Nontender with no deformity. No lesions are appreciated. Cardiovascular: Regular rate and rhythm with a normal S1 and S2. No gallops, murmurs, or rubs. Normal PMI, no JVD. No pulse deficits. Respiratory: Lungs have equal breath sounds bilaterally, clear to auscultation and percussion. No rales, rhonchi or wheezes noted. No increased work of breathing, no retractions or nasal flaring. Abdomen/GI: Soft, non-tender, with normal bowel sounds. No distension or tympany. No guarding or rebound. No evidence of tenderness throughout. Back: No spinal tenderness. No costovertebral tenderness. Full range of motion. Skin: Warm, dry with normal turgor. Normal color with no rashes, no lesions, and no evidence of cellulitis. MS/ Extremity: Pulses equal, no cyanosis. Neurovascular intact. Full, normal range of motion. Neuro: Awake and alert, GCS 15, oriented to person, place, time, and situation. Cranial nerves II-XII grossly intact. Motor strength 5/5 in all extremities. Sensory grossly intact. Cerebellar exam normal. Normal gait. Psych: Awake, alert, with orientation to person, place and time. Behavior, mood, and affect are within normal limits. Vital Signs: 16:09 BP 140 / 66; Pulse 70; Resp 16; Temp 98.7; Pulse Ox 100% on R/A; Weight 87.54 kg; la1 Height 5 ft. 5 in. (165.10 cm); 17:03 BP 121 / 54; Pulse 87; Resp 16; Pulse Ox 99% on R/A; rv 18:09 BP 117 / 64; Pulse 81; Resp 18; Pulse Ox 99% on R/A; rv 16:09 Body Mass Index 32.12 (87.54 kg, 165.10 cm) la1 MDM: 16:19 Patient medically screened. [facility] 16:32 Data reviewed: vital signs, nurses notes, lab test result(s), EKG, radiologic studies. [facility] 02/24 16:29 Order name: CBC with Diff [facility] 02/24 16:29 Order name: Comprehensive Metabolic Panel [facility] 02/24 16:33 Order name: Urine Culture [facility] 02/24 16:52 Order name: CBC with Automated Diff; Complete Time: 17:25 [facility] 02/24 17:06 Order name: Comprehensive Metabolic Panel; Complete Time: 17:25 [facility] 02/24 18:13 Order name: Urine Dipstick--Ancillary (enter results) 02/24 16:29 Order name: CT Head Brain wo Cont [facility] 02/24 17:25 Order name: CT; Complete Time: 17:54 [facility] 02/24 16:29 Order name: Urine Dipstick-Ancillary (obtain specimen); Complete Time: 18:09 [facility] 02/24 16:29 Order name: EKG; Complete Time: 16:30 [facility] 02/24 16:29 Order name: EKG - Nurse/Tech; Complete Time: 16:47 [facility] Administered Medications: 16:40 Drug: NS 0.9% 1000 ml Route: IV; Rate: 1 bolus; Site: right antecubital; rv 18:08 Follow up: IV Status: Completed infusion; IV Intake: 1000ml rv 16:40 Drug: Demerol 50 mg Route: IVP; Site: right antecubital; rv 17:03 Follow up: Response: No adverse reaction; Pain is unchanged, physician notified; RASS: rv Alert and Calm (0) 16:40 Drug: Reglan 20 mg Route: IVP; Site: right antecubital; rv 17:03 Follow up: Response: No adverse reaction rv 16:41 Drug: TORadol 30 mg Route: IVP; Site: right antecubital; rv 17:03 Follow up: Response: No adverse reaction rv 18:00 Drug: Benadryl 25 mg Route: IVP; Site: right antecubital; rv 18:41 Follow up: Response: No adverse reaction rv 18:00 Drug: Demerol 25 mg {Note: rass.} Route: IVP; Site: right antecubital; rv 18:40 Follow up: Response: No adverse reaction; RASS: Alert and Calm (0) rv 18:02 Drug: Zofran 4 mg Route: IVP; Site: right antecubital; rv 18:40 Follow up: Response: No adverse reaction rv Disposition: 02/24/19 17:53 Discharged to Home. Impression: Headache, Migraine. - Condition is Stable. - Discharge Instructions: General Headache Without Cause, Migraine Headache, Migraine Headache, [id number], General Headache Without Cause, [id number]. - Prescriptions for Fioricet with Codeine 50- 325-40-30 mg Oral capsule - take 1 capsule by ORAL route every 4 hours as needed not to exceed 6 capsules per 24hrs; 26 capsule. Zofran 4 mg Oral Tablet - take 1 tablet by ORAL route every 12 hours As needed; 20 tablet. - Medication Reconciliation Form, Thank You Letter, Antibiotic Education, Prescription Opioid Use form. - Follow up: Private Physician; When: 2 - 3 days; Reason: Recheck today's complaints, Continuance of care, Re-evaluation by your physician. Follow up: [facility]; When: 2 - 3 days; Reason: Recheck today's complaints, Re-evaluation by your physician. - Problem is new. - Symptoms have improved. Signatures: Dispatcher [employer] EDMS Gaston Haas MD MD cha Williams, Irene, RN RN iw Cl Dougals RN RN la1 Demario Blackwood RN RN rv Corrections: (The following items were deleted from the chart) 18:42 17:53 02/24/2019 17:53 Discharged to Home. Impression: Headache; Migraine. Condition is iw Stable. Discharge Instructions: General Headache Without Cause, Migraine Headache, Migraine Headache, [id number], General Headache Without Cause, [id number]-[id number]-Sbpl. Prescriptions for Fioricet with Codeine 37-981-15-30 mg Oral capsule - take 1 capsule by ORAL route every 4 hours as needed not to exceed 6 capsules per 24hrs; 26 capsule, Zofran 4 mg Oral Tablet - take 1 tablet by ORAL route every 12 hours As needed; 20 tablet. and Forms are Medication Reconciliation Form, Thank You Letter, Antibiotic Education, Prescription Opioid Use. Follow up: Private Physician; When: 2 - 3 days; Reason: Recheck today's complaints, Continuance of care, Re-evaluation by your physician. Follow up: [facility]; When: 2 - 3 days; Reason: Recheck today's complaints, Re-evaluation by your physician. Problem is new. Symptoms have improved. giselle
[2019-02-24] MEDS ORDERED: MEPERIDINE HCL 25 MG/0.5 ML ONE (17:59)
[2019-02-24] MEDS ORDERED: ONDANSETRON 4 MG/2 ML VIAL ONE (17:59)
[2019-02-24] MEDS ORDERED: DIPHENHYDRAMINE 50 MG/ML VIAL ONE (17:59)
[2019-02-24 20:28] VITALS: TEMP 98.7
[2019-02-24 20:29] LABS: Urine Blood NEGATIVE (NEG); Urine Glucose NEGATIVE (NEG); Urine Protein NEGATIVE (NEG); Urine Specific Gravity 1.025 (1.005-1.030)
[2019-02-24 20:30] VITALS: O2SAT 99
[2019-02-24 20:31] VITALS: BP 117/64
--- NOTE | 2019-02-25 12:45 | EKG ---
Test Date: 2019-02-24 Test Time: 16:46:27 Sales Data Analyst: RV MEASUREMENT RESULTS: Intervals: Rate: 62 OK: 130 QRSD: 90 QT: 438 QTc: 444 [place]: P: 60 OK: 130 QRS: -23 T: 52 INTERPRETIVE STATEMENTS: Normal sinus rhythm Normal ECG Compared to ECG 03/06/2018 11:33:50 No significant changes Electronically Signed On 02-25-19 12:44:33 LIBRARY ASSISTANT by Kenan Ramirez
--- OUTSIDE RECORDS SUMMARY | 2019-02-26 06:20 | XMS REPORT ---
:1945 Author Organization [facility] Address [address] [place] [address] Dr. Martinez [address] [place] [id number] Care Team Providers Name Role Phone Unavailable Unavailable Unavailable Problems This patient has no known problems. Allergies, Adverse Reactions, Alerts This patient has no known allergies or adverse reactions. Medications This patient has no known medications.
--- OUTSIDE RECORDS SUMMARY | 2019-02-26 06:20 | XMS REPORT ---
:1945 Author Organization [employer] Care Team Providers Name Role Phone Pascale Samuel Provider Role Unavailable Allergies No Known Allergies Problems Problem Type Condition Code Onset Dates Condition Status Assessment Other chronic pain G89.29 Active Assessment Low back pain M54.5 Active Problem Anemia, unspecified type D64.9 Active Problem Encounter for HCV screening test Z11.59 Active for low risk patient Problem Achilles tendonitis M76.60 Active Problem Hyperlipemia E78.5 Active Problem Migraine with status migrainosus, G43.901 Active not intractable, unspecified migraine type Problem Fatigue R53.83 Active Problem Chronic obstructive pulmonary J44.9 Active disease, unspecified COPD type Problem Local infection of the skin and L08.9 Active subcutaneous tissue, unspecified Problem Acute cystitis without hematuria N30.00 Active Problem Preoperative examination Z01.818 Active Problem Gastro-esophageal reflux disease K21.9 Active without esophagitis Problem Vitamin B 12 deficiency E53.8 Active Problem Hematuria, unspecified type R31.9 Active Problem Bartholin cyst N75.0 Active Problem Hyperthyroidism E05.90 Active Problem Pulmonary emphysema, unspecified J43.9 Active emphysema type Problem Dysuria R30.0 Active Problem Other chronic pain G89.29 Active Problem Sciatica M54.30 Active Problem Degenerative lumbar disc M51.36 Active Problem Abnormal weight gain R63.5 Active Problem Family history of diabetes mellitus Z83.3 Active Problem Dupuytren's contracture M72.0 Active Problem Neuropathy, peripheral G62.9 Active Problem Obese E66.9 Active Problem Colon polyp K63.5 Active Medications Medication Code Code Instructions Start End Status Dosage System Date Date Cyclobenzaprine [facility] 72290680407 10 MG Orally Feb 19, Feb 24, Active 1 tablet HCl Three times a 2018 2018 as needed day Results No Known Results Summary Purpose [employer]Works Submission
== END 2019-02-24 18:42 | disposition home or self-care (01) ==
LOC: ER 16:04
DX: G43.909 Migraine, unspecified, not intractable, without status migrainosus (principal); Z88.5 Allergy status to narcotic agent; Z88.8 Allergy status to other drugs, medicaments and biological substances
CPT/HCPCS: 96361; 93005; 87088; 85025; 36415; 81003; 80053; 70450; 96375; 96374; 99284; J2765; J1200; J2175 ×2; J7030; J2405; 87086

== ENCOUNTER 2019-06-09 17:18 | Emergency (ER) | payer OTHER ==
--- OUTSIDE RECORDS SUMMARY | 2019-06-09 17:19 | XMS REPORT ---
:1945 Author Organization [facility] Address [address] Martinez [address] [place] [address] Care Team Providers Name Role Phone Unavailable Unavailable Unavailable Problems This patient has no known problems. Allergies, Adverse Reactions, Alerts This patient has no known allergies or adverse reactions. Medications This patient has no known medications.
--- OUTSIDE RECORDS SUMMARY | 2019-06-09 17:19 | XMS REPORT ---
:1945 Author Organization [employer] Care Team Providers Name Role Phone Pascale Samuel Provider Role Unavailable Allergies No Known Allergies Problems Problem Type Condition Code Onset Dates Condition Status Problem Pure hypercholesterolemia E78.00 Active Problem Anemia, unspecified type D64.9 Active Problem Encounter for HCV screening test Z11.59 Active for low risk patient Problem Migraine with status migrainosus, G43.901 Active not intractable, unspecified migraine type Problem Hyperlipemia E78.5 Active Problem Fatigue R53.83 Active Problem Bartholin cyst N75.0 Active Problem Local infection of the skin and L08.9 Active subcutaneous tissue, unspecified Problem Pulmonary emphysema, unspecified J43.9 Active emphysema type Problem Chronic obstructive pulmonary J44.9 Active disease, unspecified COPD type Problem Hematuria, unspecified type R31.9 Active Problem Acute cystitis without hematuria N30.00 Active Problem Abnormal weight gain R63.5 Active Problem Gastro-esophageal reflux disease K21.9 Active without esophagitis Problem Obesity (BMI 35.0-39.9 without E66.9 Active comorbidity) Problem Vitamin B 12 deficiency E53.8 Active Problem Other chronic pain G89.29 Active Problem Hyperthyroidism E05.90 Active Problem Preoperative examination Z01.818 Active Problem Dysuria R30.0 Active Problem Degenerative lumbar disc M51.36 Active Problem Obese E66.9 Active Problem Family history of diabetes mellitus Z83.3 Active Problem Sciatica M54.30 Active Problem Neuropathy, peripheral G62.9 Active Problem Achilles tendonitis M76.60 Active Problem Colon polyp K63.5 Active Problem Dupuytren's contracture M72.0 Active Medications Medication Code Code Instructions Start End Status Dosage System Date Date Pantoprazole [facility] 53198190489 40 MG Oral Once Apr 04, Active 1 tablet Sodium a day 2018 Results No Known Results Summary Purpose eClinicalWorks Submission
--- OUTSIDE RECORDS SUMMARY | 2019-06-09 17:19 | XMS REPORT ---
[...] End Status Dosage System Date Date Cyclobenzaprine [facility] 17967069971 10 MG Orally Feb 19, Feb 24, Active 1 tablet HCl Three times a 2018 2018 as needed day Results No Known Results Summary Purpose eClinicalWorks Submission
--- OUTSIDE RECORDS SUMMARY | 2019-06-09 17:19 | XMS REPORT ---
[...] Active Problem Dupuytren's contracture M72.0 Active Medications No Known Medications Results No Known Results Summary Purpose eClinicalWorks Submission
--- OUTSIDE RECORDS SUMMARY | 2019-06-09 17:19 | XMS REPORT ---
:1945 Author Organization [employer] Care Team Providers Name Role Phone Pascale Samuel Provider Role Unavailable Allergies, Adverse Reactions, Alerts Substance Reaction Event Type Prednisone migraines Drug Allergy statin myalgias Drug Allergy Steroids migraine Drug Allergy Dexilant muscle cramps Drug Allergy Lyrica edema Drug Allergy Fentanyl migraine Drug Allergy Cipro confusion Drug Allergy Problems Problem Type Condition Code Onset Dates Condition Status Assessment Obesity (BMI 35.0-39.9 without E66.9 Active comorbidity) Assessment Low back pain M54.5 Active Assessment Hematuria, unspecified type R31.9 Active Problem Anemia, unspecified type D64.9 Active Problem Pure hypercholesterolemia E78.00 Active Problem Vitamin B 12 deficiency E53.8 Active Problem Gastro-esophageal reflux disease K21.9 Active without esophagitis Problem Colon polyp K63.5 Active Problem Dupuytren's contracture M72.0 Active Problem Local infection of the skin and L08.9 Active subcutaneous tissue, unspecified Problem Chronic obstructive pulmonary J44.9 Active disease, unspecified COPD type Problem Neuropathy, peripheral G62.9 Active Problem Pulmonary emphysema, unspecified J43.9 Active emphysema type Problem Other chronic pain G89.29 Active Problem Hyperthyroidism E05.90 Active Problem Obesity (BMI 35.0-39.9 without E66.9 Active comorbidity) Problem Drug-induced constipation K59.03 Active Problem Family history of diabetes mellitus Z83.3 Active Problem Abnormal weight gain R63.5 Active Problem Low back pain M54.5 Active Problem Achilles tendonitis M76.60 Active Problem Preoperative examination Z01.818 Active Problem Dysuria R30.0 Active Problem Hematuria, unspecified type R31.9 Active Problem Acute cystitis without hematuria N30.00 Active Assessment Drug-induced constipation K59.03 Active Problem Hyperlipemia E78.5 Active Assessment Other chronic pain G89.29 Active Problem Fatigue R53.83 Active Problem Sciatica M54.30 Active Problem Degenerative lumbar disc M51.36 Active Problem Migraine with status migrainosus, G43.901 Active not intractable, unspecified migraine type Problem Bartholin cyst N75.0 Active Problem Obese E66.9 Active Problem Encounter for HCV screening test Z11.59 Active for low risk patient Medications Medication Code Code Instructions Start End Status Dosage System Date Date Phentermine HCl [facility] 64126179550 37.5 MG Orally Apr 05, May 05, Active 1 capsule Once a day [address] [facility] 07278786560 8 MG Orally Active 1 tablet Once a day as needed Levsin [facility] 68263883170 0.125 MG Orally Active 1 tablet every 4 hrs as needed Artificial Tear [facility] 0 - Ophthalmic Active not Solution defined Breo Ellipta [facility] 30250015139 100-25 MCG/INH Active 1 puff Inhalation Once a day Imitrex [facility] 88711868506 25 MG Orally Active 1 tablet as needed ProAir HFA [facility] 98781545444 108 (90 Base) Active 1 to 2 MCG/ACT puffs as Inhalation needed every [address] [facility] [address]-62 Active not defined Nineveh [facility] 88330031174 10-325 MG Active 1 tablet Orally every 4 as needed hours Levothyroxine [facility] 44360117241 25 MCG Orally Active 1 tablet Sodium Once a day on an empty stomach in the morning Xanax [facility] 18363794586 0.5 MG Orally Active 1 tablet Once a day Ventolin HFA [facility] 00606911326 108 (90 Base) Active 2 puffs MCG/ACT as needed Inhalation every 6 hrs Results Name Result Date Reference Range Unit Abnormality Flag TSH ----TSH 2.38 [id number] 0.40-4.50 mIU/L N URINALYSIS AUTO W/O SCOPE (89366) ----NIT N [id number] ----URO 0.2 [id number] ----PROTEIN N [id number] ----pH 6.0 20190406 ----BLO N 20190406 ----GLUCOSE N 20190406 ----PEDRITO N 20190406 ----BILIRUBIN 1+ 20190406 ----KETONES N 20190406 ----SPECIFIC GRAVITY 1.025 20190406 LIPID PANEL ----NON HDL CHOLESTEROL 163 63197311 <130 mg/dL (calc) H ----LDL-CHOLESTEROL 147 10345553 mg/dL (calc) H ----CHOL/HDLC RATIO 3.0 41189826 <5.0 (calc) N ----HDL CHOLESTEROL 81 33852236 >50 mg/dL N ----TRIGLYCERIDES 64 16156851 <150 mg/dL N ----CHOLESTEROL, TOTAL 244 [id number] <200 mg/dL H Summary Purpose eClinicalWorks Submission
--- OUTSIDE RECORDS SUMMARY | 2019-06-09 17:20 | XMS REPORT ---
:1945 Author Organization [employer]ClinicalWorks Care Team Providers Name Role Phone Pascale Samuel Provider Role Unavailable Allergies No Known Allergies Problems Problem Type Condition Code Onset Dates Condition Status Assessment Muscle pain M79.10 Active Problem Pure hypercholesterolemia E78.00 Active Problem Anemia, unspecified type D64.9 Active Problem Vitamin B 12 deficiency E53.8 Active Problem Gastro-esophageal reflux disease K21.9 Active without esophagitis Problem Colon polyp K63.5 Active Problem Dupuytren's contracture M72.0 Active Problem Neuropathy, peripheral G62.9 Active Problem Achilles tendonitis M76.60 Active Problem Pulmonary emphysema, unspecified J43.9 Active emphysema type Problem Hyperthyroidism E05.90 Active Problem Abnormal weight gain R63.5 Active Problem Other chronic pain G89.29 Active Problem Preoperative examination Z01.818 Active Problem Dysuria R30.0 Active Problem Lower extremity pain, diffuse, M79.606 Active unspecified laterality Problem Drug-induced constipation K59.03 Active Problem Hyperlipemia E78.5 Active Problem Sciatica M54.30 Active Problem Acquired hypothyroidism E03.9 Active Problem Family history of diabetes mellitus Z83.3 Active Problem Hematuria, unspecified type R31.9 Active Problem Acute cystitis without hematuria N30.00 Active Problem Low back pain M54.5 Active Problem Obesity (BMI 35.0-39.9 without E66.9 Active comorbidity) Problem Encounter for HCV screening test Z11.59 Active for low risk patient Problem Migraine with status migrainosus, G43.901 Active not intractable, unspecified migraine type Problem Fatigue R53.83 Active Problem Obese E66.9 Active Problem Local infection of the skin and L08.9 Active subcutaneous tissue, unspecified Problem Chronic obstructive pulmonary J44.9 Active disease, unspecified COPD type Problem Bartholin cyst N75.0 Active Problem Degenerative lumbar disc M51.36 Active Medications No Known Medications Results No Known Results Summary Purpose eClinicalWorks Submission
--- OUTSIDE RECORDS SUMMARY | 2019-06-09 17:20 | XMS REPORT ---
[...] (BMI 35.0-39.9 without E66.9 Active comorbidity) Problem Pure hypercholesterolemia E78.00 Active Problem Anemia, [...] (BMI 35.0-39.9 without E66.9 Active comorbidity) Assessment Lower extremity pain, diffuse, M79.606 Active unspecified laterality Problem Encounter for HCV screening test Z11.59 Active for low risk patient Assessment Acquired hypothyroidism E03.9 Active Problem Migraine with status migrainosus, G43.901 Active not intractable, unspecified migraine type Problem Fatigue R53.83 Active Problem Obese E66.9 Active Problem Local infection of the skin and L08.9 Active subcutaneous tissue, unspecified Problem Chronic obstructive pulmonary J44.9 Active disease, unspecified COPD type Problem Bartholin cyst N75.0 Active Problem Degenerative lumbar disc M51.36 Active Medications Medication Code Code Instructions Start End Status Dosage System Date Date [facility] 57970584508 10-325 MG Active 1 tablet Orally every 4 as needed hours Breo Ellipta [facility] 43709762159 100-25 MCG/INH Active 1 puff Inhalation Once a day Pantoprazole [facility] 48429694455 40 MG Oral Once Apr 04, Active 1 tablet Sodium a day 2018 Levothyroxine [facility] 07819606483 25 MCG Orally Active 1 tablet Sodium Once a day on an empty stomach in the morning Artificial Tear [facility] 0 - Ophthalmic Active not Solution defined Protonix [facility] [address]-91 Active not defined ProAir HFA [facility] 71226995258 108 (90 Base) Active 1 to 2 MCG/ACT puffs as Inhalation needed every 6 hrs Xanax [facility] 98053734184 0.5 MG Orally Active 1 tablet Once a day Phentermine HCl [facility] 76545389556 37.5 MG Orally Active 1 tablet Once a day Phentermine HCl [facility] 57566192155 37.5 MG Orally May 29June Active 1 tablet Once a day 2019 Results No Known Results Summary Purpose eClinicalWorks Submission
--- OUTSIDE RECORDS SUMMARY | 2019-06-09 17:20 | XMS REPORT ---
:1945 Author Organization [employer] Care Team Providers Name Role Phone Bridget Samuela Provider Role Unavailable Allergies, Adverse Reactions, Alerts Substance Reaction Event Type Prednisone migraines Drug Allergy statin myalgias Drug Allergy Steroids migraine Drug Allergy Dexilant muscle cramps Drug Allergy Lyrica edema Drug Allergy Fentanyl migraine Drug Allergy Cipro confusion Drug Allergy Problems Problem Type Condition Code Onset Dates Condition Status Assessment Flank pain R10.9 Active Problem Pure hypercholesterolemia E78.00 Active Problem [...] Z11.59 Active for low risk patient Assessment Muscle pain, myofascial M79.18 Active Problem Migraine with status migrainosus, G43.901 [...] End Status Dosage System Date Date Pantoprazole [facility] 03585883880 40 MG Oral Once Apr 04, Active 1 tablet Sodium a day 2018 Phentermine HCl [facility] 81566804426 37.5 MG Orally Active 1 tablet Once a day Artificial Tear ND 0 - Ophthalmic Active not Solution defined [place] [facility] 27779219926 10-325 MG Active 1 tablet Orally every 4 as needed hours ProAir HFA [facility] [id number] 108 (90 Base) Active 1 to 2 MCG/ACT puffs as Inhalation needed every 6 hrs [address]ax [facility] 22125298678 0.5 MG Orally Active 1 tablet Once a day Breo Ellipta [facility] 21295213080 100-25 MCG/INH Active 1 puff Inhalation Once a day Levothyroxine [facility] 57918980463 25 MCG Orally Active 1 tablet Sodium Once a day on an empty stomach in the morning Results Name Result Date Reference Range Unit Abnormality Flag URINALYSIS AUTO W/O SCOPE (46209) ----NIT Negative [id number] ----URO 0.2 [id number] ----PROTEIN Negative [id number] ----pH 5.5 [id number] ----BLO Negative [id number] ----GLUCOSE Negative [id number] ----PEDRITO Negative [id number] ----BILIRUBIN 1+* [id number] ----KETONES Trace* [id number] ----SPECIFIC GRAVITY 1.025 [id number] Summary Purpose eClinicalWorks Submission
--- NOTE | 2019-06-09 18:59 | RAD REPORT ---
EXAM DESCRIPTION: CT - Stone Protocol - 06/09/2019 6:15 pm CLINICAL HISTORY: Pain COMPARISON: Abdomen Pelvis W Contrast dated 05/04/2018 TECHNIQUE: Axial 3 mm thick images were obtained without oral or IV contrast. The [id number] span s the entirety of the system including uppermost abdomen and lung bases. All CT scans are performed using dose optimization technique as appropriate and may include automated exposure control or mA/KV adjustment according to patient size. FINDINGS: No hydronephrosis is present and no obstructing ureteral calculi. No suspicious renal mass es. Isodense masses and pyelonephritis are not excluded on a stone protocol CT scan. No urinary bladd er suspicious finding. No significant adrenal finding. Imaged portions of the liver, spleen and pancreas show no suspicious findings on non-contrast imaging . No gallbladder or biliary tree abnormality identified. No suspicious bowel findings. Mild diverticulosis without diverticulitis. No acute GI process. No hernia, mass or bulky lymphadenopathy noted. No free air, free fluid or inflammatory stranding. Facet degenerative changes are present. No acute disc or bone finding. IMPRESSION: No hydronephrosis or other acute abnormality. Isodense masses and pyelonephritis are not excluded on stone protocol technique. No acute findings identified. No significant change from comparison.
--- NOTE | 2019-06-09 19:15 | ER ---
Nurse's Notes [facility] Name: Bety Ball Age: 74 yrs Sex: Female : 1945 Arrival Date: 06/09/2019 Time: 17:19 Bed 8 Private MD: Diagnosis: Flank pain;Muscle spasm of back Presentation: 06/09 17:40 Presenting complaint: Patient states: "its been going on since Tuesday, severe pain aj1 right here (pt points to left lower back) I went to see Tess Samuel and she gave me an injection, toradol and a steroid and it did nothing so I called her and asked if she would do tests and she said to go to the ER". Transition of care: patient was not received from another setting of care. Onset of symptoms was May 2019. Risk Assessment: Do you want to hurt yourself or someone else? Patient reports no desire to harm self or others. Initial Sepsis Screen: Does the patient meet any 2 criteria? No. Patient's initial sepsis screen is negative. Does the patient have a suspected source of infection? No. Patient's initial sepsis screen is negative. Care prior to arrival: None. 17:40 Method Of Arrival: Ambulatory aj1 17:40 Acuity: TAY 3 aj1 Triage Assessment: 17:42 General: Appears in no apparent distress. comfortable, Behavior is calm, cooperative, aj1 appropriate for age. Pain: Complains of pain in left low back. Neuro: Level of Consciousness is awake, alert, obeys commands. Cardiovascular: Patient's skin is warm and dry. Respiratory: Airway is patent Respiratory effort is even, unlabored, Respiratory pattern is regular, symmetrical. Musculoskeletal: Range of motion: intact in all extremities. Historical: - Allergies: 17:42 Fentanyl; aj1 17:42 Morphine; aj1 17:42 Steroids (migraines); aj1 - PMHx: 17:42 "heart valve leaks"; Chronic pain; Gastritis/Esophageal; Migraines; pulmonary fibrosis; aj1 Stomach Ulcers; - Immunization history:: Flu vaccine is not up to date. - Coronavirus screen:: The patient has NOT traveled to [place] in the past 14 days. - Social history:: Smoking status: Patient/guardian denies using tobacco. - Ebola Screening: : Patient denies travel to an Ebola-affected area in the 21 days before illness onset. Screenin:32 Abuse screen: Denies threats or abuse. Nutritional screening: No deficits noted. jd3 Tuberculosis screening: No symptoms or risk factors identified. Fall Risk Ambulatory Aid- None/Bed Rest/Nurse Assist (0 pts). Gait- Normal/Bed Rest/Wheelchair (0 pts) Mental Status- Oriented to own ability (0 pts). Total Perry Fall Scale indicates No Risk (0-24 pts). Assessment: 19:33 General: Appears in no apparent distress. comfortable, Behavior is calm, cooperative, jd3 appropriate for age. Pain: Complains of pain in back Quality of pain is described as aching. Neuro: Level of Consciousness is awake, alert, obeys commands, Oriented to person, place, time, situation. Cardiovascular: Denies chest pain, Capillary refill < 3 seconds Patient's skin is warm and dry. Respiratory: Airway is patent Respiratory effort is even, unlabored, Respiratory pattern is regular, symmetrical, Denies cough, shortness of breath. GI: No signs and/or symptoms were reported involving the gastrointestinal system. : No signs and/or symptoms were reported regarding the genitourinary system. EENT: No signs and/or symptoms were reported regarding the EENT system. Derm: Skin is intact, Skin is dry, Skin is normal, Skin temperature is warm. Musculoskeletal: Circulation, motion, and sensation intact. Range of motion: intact in all extremities. Vital Signs: 17:42 BP 144 / 74; Pulse 71; Resp 18; Temp 97.6; Pulse Ox 98% on R/A; Weight 90.72 kg (R); aj1 Height 5 ft. 5 in. (165.10 cm) (R); Pain 9/10; 19:32 BP 150 / 70; Pulse 64; Resp 17 S; Pulse Ox 100% on R/A; jd3 17:42 Body Mass Index 33.28 (90.72 kg, 165.10 cm) aj1 ED Course: 17:19 Patient arrived in ED. as 17:42 Triage completed. aj1 17:42 Arm band placed on Patient placed in waiting room, Patient notified of wait time. aj1 17:46 Danita Ta FNP-C [facility]. snw 17:46 Shai Spring MD is Attending Physician. snw 19:21 Tremaine Landry, RN is Primary Nurse. jd3 19:33 Patient has correct armband on for positive identification. Bed in low position. Call jd3 light in reach. Side rails up X 1. Adult w/ patient. 19:34 No provider procedures requiring assistance completed. Patient did not have IV access jd3 during this emergency room visit. Administered Medications: 19:31 Drug: Valium 5 mg Route: PO; jd3 19:31 Follow up: Response: Medication administered at discharge. jd3 Outcome: 19:14 Discharge ordered by . adelina 19:34 Discharged to home ambulatory, with family. jd3 19:34 Condition: stable 19:34 Discharge instructions given to patient, Instructed on discharge instructions, follow up and referral plans. medication usage, Demonstrated understanding of instructions, follow-up care, medications, Prescriptions given X 1. 19:34 Patient left the ED. jd3 Signatures: Liseth Piedra, RN RN aj1 Danita Ta, FULL CHARGE BOOKKEEPER-C FULL CHARGE BOOKKEEPER-Csnw Luly Kebede as Tremaine Landry, RN RN jkanu
--- NOTE | 2019-06-09 19:16 | EDPHYS ---
Physician Documentation [facility] Name: Bety Ball Age: 74 yrs Sex: Female : 1945 Arrival Date: 06/09/2019 Time: 17:19 Bed 8 Private MD: ED Physician Shai Spring HPI: 06/09 18:01 This 74 yrs old Female presents to ER via Ambulatory with complaints of Back snw Pain, Headache. 18:01 The patient presents with pain that is acute, with no known mechanism of injury. The snw symptoms are located in the left flank with radiation around to mid axillary area. Onset: The symptoms/episode began/occurred suddenly, 6 day(s) ago, and became persistent. as noted. Associated signs and symptoms: The patient has no apparent associated signs or symptoms. The problem was sustained from unknown cause. Modifying factors: The patient symptoms are alleviated by nothing. Severity of symptoms: At their worst the symptoms were moderate. It is unknown whether or not the patient has had similar symptoms in the past. The patient has been recently seen by a physician: the patient's primary care provider, with similar presenting complaints, gave toradol and steroids with no relief, UA negative except for bili. Historical: - Allergies: 17:42 Fentanyl; aj1 17:42 Morphine; aj1 17:42 Steroids (migraines); aj1 - PMHx: 17:42 "heart valve leaks"; Chronic pain; Gastritis/Esophageal; Migraines; pulmonary fibrosis; aj1 Stomach Ulcers; - Immunization history:: Flu vaccine is not up to date. - Coronavirus screen:: The patient has NOT traveled to [place] in the past 14 days. - Social history:: Smoking status: Patient/guardian denies using tobacco. - Ebola Screening: : Patient denies travel to an Ebola-affected area in the 21 days before illness onset. ROS: 18:01 Constitutional: Negative for fever, chills, and weight loss, Eyes: Negative for injury, snw pain, redness, and discharge, ENT: Negative for injury, pain, and discharge, Neck: Negative for injury, pain, and swelling, Cardiovascular: Negative for chest pain, palpitations, and edema, Respiratory: Negative for shortness of breath, cough, wheezing, and pleuritic chest pain, Abdomen/GI: Negative for abdominal pain, nausea, vomiting, diarrhea, and constipation, : Negative for injury, bleeding, discharge, and swelling, MS/Extremity: Negative for injury and deformity, Skin: Negative for injury, rash, and discoloration, Neuro: Negative for headache, weakness, numbness, tingling, and seizure, Psych: Negative for depression, anxiety, suicide ideation, homicidal ideation, and hallucinations. 18:01 Back: Positive for pain at rest, flank pain, radiated pain, of the left mid back. Exam: 18:01 Constitutional: This is a well developed, well nourished patient who is awake, alert, snw and in no acute distress. Head/Face: Normocephalic, atraumatic. Eyes: Pupils equal round and reactive to light, extra-ocular motions intact. Lids and lashes normal. Conjunctiva and sclera are non-icteric and not injected. Cornea within normal limits. Periorbital areas with no swelling, redness, or edema. ENT: Nares patent. No nasal discharge, no septal abnormalities noted. Tympanic membranes are normal and external auditory canals are clear. Oropharynx with no redness, swelling, or masses, exudates, or evidence of obstruction, uvula midline. Mucous membranes moist. Neck: Trachea midline, no thyromegaly or masses palpated, and no cervical lymphadenopathy. Supple, full range of motion without nuchal rigidity, or vertebral point tenderness. No Meningismus. Chest/axilla: Normal chest wall appearance and motion. Nontender with no deformity. No lesions are appreciated. Cardiovascular: Regular rate and rhythm with a normal S1 and S2. No gallops, murmurs, or rubs. Normal PMI, no JVD. No pulse deficits. Respiratory: Lungs have equal breath sounds bilaterally, clear to auscultation and percussion. No rales, rhonchi or wheezes noted. No increased work of breathing, no retractions or nasal flaring. Abdomen/GI: Soft, non-tender, with normal bowel sounds. No distension or tympany. No guarding or rebound. No evidence of tenderness throughout. Skin: Warm, dry with normal turgor. Normal color with no rashes, no lesions, and no evidence of cellulitis. MS/ Extremity: Pulses equal, no cyanosis. Neurovascular intact. Full, normal range of motion. Neuro: Awake and alert, GCS 15, oriented to person, place, time, and situation. Cranial nerves II-XII grossly intact. Motor strength 5/5 in all extremities. Sensory grossly intact. Cerebellar exam normal. Normal gait. Psych: Awake, alert, with orientation to person, place and time. Behavior, mood, and affect are within normal limits. 18:01 Back: pain, that is moderate, ROM is normal, normal spinal alignment noted, CVA tenderness, is noted on the left. Vital Signs: 17:42 BP 144 / 74; Pulse 71; Resp 18; Temp 97.6; Pulse Ox 98% on R/A; Weight 90.72 kg (R); aj1 Height 5 ft. 5 in. (165.10 cm) (R); Pain 9/10; 19:32 BP 150 / 70; Pulse 64; Resp 17 S; Pulse Ox 100% on R/A; jd3 17:42 Body Mass Index 33.28 (90.72 kg, 165.10 cm) aj1 MDM: 18:17 Patient medically screened. snw 22:53 Data reviewed: vital signs, nurses notes. Data interpreted: Pulse oximetry: on room air snw is 100 %. Interpretation: normal. Counseling: I had a detailed discussion with the patient and/or guardian regarding: the historical points, exam findings, and any diagnostic results supporting the discharge/admit diagnosis, the presence of at least one elevated blood pressure reading (>120/80) during this emergency department visit, radiology results, the need for outpatient follow up, to return to the emergency department if symptoms worsen or persist or if there are any questions or concerns that arise at home. Special discussion: Based on the history and exam findings, there is no indication for further emergent testing or inpatient evaluation. I discussed with the patient/guardian the need to see the primary care provider for further evaluation of the symptoms. 06/09 17:44 Order name: CT Stone Protocol aj1 Administered Medications: 19:31 Drug: Valium 5 mg Route: PO; jd3 19:31 Follow up: Response: Medication administered at discharge. jd3 Disposition: 06/10 07:06 Co-signature as Attending Physician, Shai Spring MD. rn Disposition: 06/09/19 19:14 Discharged to Home. Impression: Flank pain, Muscle spasm of back. - Condition is Stable. - Discharge Instructions: Muscle Cramps and Spasms, Back Injury Prevention, [id number], Back Exercises, [id number], Heat Therapy. - Prescriptions for orphenadrine citrate 100 mg Oral Tablet Sustained Release - take 1 tablet by ORAL route 2 times per day As needed; 20 tablet. - Medication Reconciliation Form, Thank You Letter, Antibiotic Education, Prescription Opioid Use form. - Follow up: Emergency Department; When: As needed; Reason: Worsening of condition. Signatures: Dispatcher [employer] EDLiseth Sun RN RN aj1 Danita Ta, BRUSHER MACHINE-C BRUSHER MACHINE-Csnw Shai Spring MD MD rn Davies, Jonathon, RN RN jd3 Corrections: (The following items were deleted from the chart) 06/09 19:34 19:14 06/09/2019 19:14 Discharged to Home. Impression: Flank pain; Muscle spasm of jd3 back. Condition is Stable. Forms are Medication Reconciliation Form, Thank You Letter, Antibiotic Education, Prescription Opioid Use. Follow up: Emergency Department; When: As needed; Reason: Worsening of condition. snw
[2019-06-09] MEDS ORDERED: DIAZEPAM 5 MG TABLET ONE (19:28)
[2019-06-09 20:18] VITALS: TEMP 97.6
[2019-06-09 20:19] VITALS: BP 150/70; O2SAT 100
== END 2019-06-09 19:34 | disposition home or self-care (01) ==
LOC: ER 17:18
DX: M62.830 Muscle spasm of back (principal); R10.9 Unspecified abdominal pain; Z88.6 Allergy status to analgesic agent
CPT/HCPCS: 74176; 76377; 99283

== ENCOUNTER 2020-04-28 07:28 | Day surgery (SDC) | payer OTHER, MEDICARE ==
--- OUTSIDE RECORDS SUMMARY | 2020-04-28 07:43 | XMS REPORT | Continuity of Care Document ---
:1945 Author Organization [facility] t Address [address] [place] [address] Care Team Providers Name Role Phone Unavailable Unavailable Unavailable Problems This patient has no known problems. Allergies, Adverse Reactions, Alerts Allergy Allergy Status Severity Reaction(s) Onset Inactive Treating Comm ents Source Name Type Date Date Clinician statin Adverse Active [facility]algias [facility] Steroids Adverse Active migraine [facility] Dexilant Adverse Active muscle [facility] cramps [facility] Lyrica Adverse Active edema [facility] Fentanyl Adverse Active migraine [facility] Cipro Adverse Active confusion [facility] Predniso Adverse Active migraines [facility] Reaction [facility] Medications Ordered Filled Start Stop Current Ordering Indication Dosage Frequency Signature Comments Components Source Medication Medication Date Date Medication? Clinician (SIG) Name Name Artificial Artificial Yes [facility] not [facility] Tear Tear [place] defined [facility] Breo Breo Yes Pascale [address] [facility] Ellipta Ellipta [place] [facility] ProAir HFA ProAir HFA Yes Pas[place] [address] [facility] [place] puffs as [facility] [place] Yes [place]ale [address] [facility] [place] as needed [facility] Levothyroxi Levothyroxi Yes [place]ale [address] [facility] ne Sodium ne Sodium [place] on an [place] es - empty [facility] stomach in l the Outpati morning ent Clinics Xanax Xanax Yes [place] [address] [facility] [place] [facility] Pantoprazol Pantoprazol Yes [place] [address] [facility] e Sodium e Sodium [place] [facility] Immunizations Ordered Filled Immunization Date Status Comments [facility] e Immunization Name Name Prevuri 13 Prevnar 13 2017-09-[address] [facility] - -Pneumonia Vaccine -Pneumonia Vaccine 00:00:00 [facility] Procedures This patient has no known procedures. Encounters Start End Encounter Admission Attending Care Care Encounter Source Date/Time Date/Time Type Type Clinicians Facility Department ID 2020-04-21 2020-04-21 [facility] [id number] [facility] 2020-04-08 2020-04-08 [facility] [id number] [facility] 2020-03-31 2020-03-31 [facility] [id number] [facility] 2020-03-17 2020-03-17 [facility] [id number] [facility] 2020-03-11 2020-03-11 [facility] [id number] [facility] 2020-02-27 2020-02-27 [facility] [id number] [facility] 2020-02-20 2020-02-20 [facility] [id number] [facility] 2020-02-15 2020-02-15 [facility] [id number] [facility] 2020-01-30 2020-01-30 Outpatient [facility] [id number] [facility] 2020-01-22 2020-01-22 Outpatient [facility] [id number] [facility] 2019-11-28 2019-11-28 [facility] [id number] [facility] 13:45:00 13:45:00 [facility] Medicine Outpati ent Clinics 2019-10-24 2019-10-24 [facility] [id number] [address] 17:45:00 17:45:00 [facility] Medicine Outpati ent Clinics 2019-10-01 2019-10-01 [facility] [id number] 15:20:00 15:20:00 [facility] Medicine Outpati ent Clinics 2019-09-11 2019-09-11 [facility] [id number] 15:20:00 15:20:00 [facility] Medicine Outpati ent Clinics 2019-08-20 2019-08-20 [facility] [id number] 10:34:00 10:34:00 [facility] Medicine Outpati ent Clinics 2019-08-15 2019-08-15 [facility] [id number] 13:40:00 13:40:00 [facility] Medicine Outpati ent Clinics 2019-08-14 2019-08-14 [facility] [id number] 13[facility]10:00 13:10:00 [facility] Medicine Outpati ent Clinics 2019-07-06 2019-07-06 [facility] [id number] 13:40:00 13:40:00 [facility] Medicine Outpati ent Clinics 2019-07-06 2019-07-06 [facility] [id number] 11:29:00 11:29:00 [place] [facility] Medicine Outpati ent Clinics 2019-06-06 2019-06-06 [facility] [id number] 11:40:00 11:40:00 [facility] Medicine Outpati ent Clinics 2019-06-04 2019-06-04 [facility] [id number] [address] 15:00:00 15:00:00 [place] [facility] l Medicine Outpati ent Clinics 2019-05-30 2019-05-30 [facility] [id number] 11:54:00 11:54:00 [facility] l Medicine Outpati ent Clinics 2019-05-29 2019-05-29 [facility] [id number] 14:20:00 14:20:00 [facility] Medicine Outpati ent Clinics 2019-05-11 2019-05-11 [facility] [id number] 14[facility]23:00 14:23:00 [facility] Medicine Outpati ent Clinics 2019-04-06 2019-04-06 [facility] [id number] [address] 11:25:00 11:25:00 t Specialty/U Khadijah kes - Specialty rology [facility] a /Urology Clinic l Clinic Outpati ent Clinics 2019-04-05 2019-04-05 [facility] [id number] [facility] 15:00:00 15:00:00 t [facility] Medicine Outpati ent Clinics 2019-02-16 2019-02-16 [facility] [id number] 13:56:00 13:56:00 [facility] Medicine Outpati ent Clinics 2019-02-01 2019-02-01 [facility] [id number] 16:00:00 16:00:00 t [facility] Medicine Outpati ent Clinics 2018-11-07 2018-11-07 [facility] [id number] 16:00:00 16:00:00 t [facility] Medicine Outpati ent Clinics 2018-10-11 2018-10-11 [facility] [id number] 09:29:00 09:29:00 t [facility] Medicine Outpati ent Clinics 2018-10-04 2018-10-04 [facility] [id number] [facility] 16:20:00 16:20:00 t [facility] Medicine Outpati ent Clinics 2018-10-02 2018-10-02 [facility] [id number] 14:20:00 14:20:00 t [facility] Medicine Outpati ent Clinics 2018-08-07 2018-08-07 [facility] [id number] 13:15:00 13:15:00 t Specialty/U Khadijah kes - Specialty rology [facility] a /Urology Clinic l Clinic Outpati ent Clinics 2018-05-30 2018-05-30 [facility] [id number] 13:00:00 13:00:00 t [facility] Medicine Outpati ent Clinics 2018-05-16 2018-05-16 [facility] [id number] [facility] 14:15:00 14:15:00 t Specialty/U Khadijah kes - Specialty rology Memori a /Urology Clinic l Clinic Outpati ent Clinics 2018-05-16 2018-05-16 [facility] [id number] 09:03:00 09:03:00 t Specialty/U Khadijah kes - Specialty rology Memori a /Urology Clinic l Clinic Outpati ent Clinics 2018-03-28 2018-03-28 [facility] [id number] 16:23:00 16:23:00 t [facility] Medicine Outpati ent Clinics 2018-03-24 2018-03-24 [facility] [id number] [facility] 15:44:00 15:44:00 t [facility] Medicine Outpati ent Clinics 2018-02-02 2018-02-02 [facility] [id number] [facility] 15:30:00 15:30:00 t [facility] Medicine Outpati ent Clinics 2017-11-04 2017-11-04 [facility] [id number] 11:44:00 11:44:00 t [facility] Medicine Outpati ent Clinics 2017-10-28 2017-10-28 [facility] [id number] 14:44:00 14:44:00 t [facility] Medicine Outpati ent Clinics 2017-10-27 2017-10-27 [facility] [id number] [facility] 16:00:00 16:00:00 t [facility] Medicine Outpati ent Clinics 2017-09-23 2017-09-23 [facility] [id number] 10:32:00 10:32:00 t [facility] Medicine Outpati ent Clinics 2017-09-22 2017-09-22 [facility] [id number] [facility] 14:32:00 14:32:00 [place] Medicine Medicine Outpati ent Clinics 2017-09-19 2017-09-19 [facility] [id number] [facility] 15:00:00 15:00:00 [place] Medicine Medicine Outpati ent Clinics 2017-09-13 2017-09-13 [facility] [id number] [facility] 10:10:00 10:10:00 t [facility] Medicine Outpati ent Clinics 2017-09-08 2017-09-08 [facility] [id number] 13:25:00 13:25:00 t [facility] 2017-09-05 2017-09-05 Outpatient Renee Mak [id number] 11:15:00 11:15:00 [facility] ent Clinics Results This patient has no known results.
[2020-04-28] MEDS: Ringers Lactate 1,000 ML IV ONE ×2 (07:50→08:09)
[2020-04-28] MEDS ORDERED: LIDOCAINE 1% MPF 5 ML VIAL ONE (08:29)
[2020-04-28] MEDS ORDERED: propofoL 200 MG/20 ML VIAL IV ONE (08:29)
[2020-04-28] MEDS ORDERED: Phenylephrine HCl 10 MG/ML 1 ML VIAL ONE (08:29)
[2020-04-28] MEDS ORDERED: NS 0.9% VIAL 0 ML ONE (08:29)
--- NOTE | 2020-04-28 08:44 | ENDO RPT ---
[address], [address] EGD PROCEDURE REPORT EXAM DATE: 04/28/2020 PATIENT NAME: Bety Ball MR#: [id number] BIRTHDATE: 1945 ATTENDING: Carson Thompson DR STATUS: outpatient TOPPIECE CHOPPER: Ros FOFANA and Angel Bond Lead Tech INDICATIONS: The patient is a 74 yr old Female here for an EGD due to mid epigastric abdominal pain PROCEDURE PERFORMED: EGD with biopsy for H. pylori MEDICATIONS: Per Anesthesia. TOPICAL ANESTHETIC: none CONSENT: The patient understands the risks and benefits of the procedure and understands that these risks include, but are not limited to: sedation, allergic reaction, infection, perforation and/or bleeding. Alternative means of evaluation and treatment include, among others: physical exam, x-rays, and/or surgical intervention. The patient elects to proceed with this endoscopic procedure. DESCRIPTION OF PROCEDURE: During intra-op preparation period all mechanical medical equipment was checked for proper function. Hand hygiene and appropriate measures for infection prevention was taken. Procedure, possible complications, and alternatives including but not limited to the possibility of bleeding, perforation, tear, infection, sepsis, need for surgery, need for blood transfusion, and anesthesia related complications were explained to the patient. After the risks, benefits and alternatives of the procedure were thoroughly explained, Informed consent was verified, confirmed and timeout was successfully executed by the treatment team. The patient was placed in the left lateral position. The patient was anesthetized with topical anesthesia. Through the anesthetized oropharyngeal area, the scope was passed without any difficulty. The EG-[id number] ([id number]) endoscope was introduced through the mouth and advanced to the second portion of the duodenum. Retroflexed views revealed a moderate sized hiatal hernia. The gastroscope was then slowly withdrawn and removed. Bile reflux was found in the gastroesophageal junction. @ 32 cm from incisors A biopsy for H. pylori was taken. Mild gastritis was found at the pylorus. A biopsy for H. pylori was taken. A short segment of Ramirez's esophagus appearing mucosa was found in the gastroesophageal junction, it was not circumferential 1cm small patch. Located 32 cm from the point of entry. 4 quadrant biopsies were performed @ GEJ, A biopsy for H. pylori was also taken. ADVERSE EVENTS: There were no complications. IMPRESSIONS: 1. Bile reflux was found in the gastroesophageal junction 2. Mild gastritis was found at the pylorus 3. 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 anti-reflux regimen 2. acid suppression therapy 3. await biopsy results 4. follow-up: office 2 week(s) 5. avoid NSAIDS 6. follow-up of helicobacter pylori status, treat if indicated REPEAT EXAM: Return in 1 year(s) for EGD. Pending Biopsy results Carson Thompson DR eSigned: Carson Thompson DR 04/28/2020 8:43 AM cc: CPT CODES: ICD9 CODES: PATIENT NAME: Bety Ball MR#: [id number]
[2020-04-28 09:16] VITALS: TEMP 96.9
[2020-04-28 09:18] VITALS: BP 117/56; O2SAT 95
== END 2020-04-28 09:10 | disposition home health service (06) ==
LOC: OR 07:28
PROVIDERS: ATTEND Surgery
PROC: 0DB78ZX Excision of Stomach, Pylorus, Via Natural or Artificial Opening Endoscopic, Diagnostic (ICD-10-PCS; 2020-04-28)
PROC: 0DB48ZX Excision of Esophagogastric Junction, Via Natural or Artificial Opening Endoscopic, Diagnostic (ICD-10-PCS; 2020-04-28)
PROC: 0DB98ZX Excision of Duodenum, Via Natural or Artificial Opening Endoscopic, Diagnostic (ICD-10-PCS; principal; 2020-04-28 08:30)
DX: K29.50 Unspecified chronic gastritis without bleeding (principal); K21.00 Gastro-esophageal reflux disease with esophagitis, without bleeding; K22.70 Barrett's esophagus without dysplasia; Z20.822 Contact with and (suspected) exposure to COVID-19
CPT/HCPCS: 88312; 88305; 43239; U0002; J2704; J7120; J2370

== ENCOUNTER 2021-10-24 14:11 | Emergency (ER) | payer OTHER, MEDICARE ==
--- NOTE | 2021-10-24 14:49 | EDPHYS ---
Physician Documentation [facility] Name: Bety Ball Age: 76 yrs Sex: Female : 1945 Arrival Date: 10/24/2021 Time: 14:14 Bed 17 Private MD: Pascale Samuel ED Physician Shai Spring HPI: 10/24 14:44 This 76 yrs old Female presents to ER via Ambulatory with complaints of Skin Problem, rn Rash. 14:44 The patient's rash thought to be caused by insect bites. The rash is located on the rn body diffusely. The rash can be described as erythematous. Onset: The symptoms/episode began/occurred. 14:45 Associated signs and symptoms: Pertinent positives: itching, Pertinent negatives: rn fever, swelling of lips, swelling of throat, swelling of tongue. Severity of symptoms: At their worst the symptoms were moderate in the emergency department the symptoms are unchanged. The patient has not experienced similar symptoms in the past. The patient has not recently seen a physician. Pt reports thinks getting bitten by chiggers, began yesterday, got worse today, denies bed bugs or scabies, friend had her take listerine bath and permethrin cream, doesn't seem to help. NO fever. . Historical: - Allergies: 14:31 Fentanyl; bh1 14:31 Morphine; bh1 14:31 Steroids (migraines); bh1 - Home Meds: 14:31 Imitrex Sub-Q [Active]; [place] 10-325 mg Oral tab 1 tab every 4 hours [Active]; Protonix bh1 Oral [Active]; Xanax Oral [Active]; Zomig Oral [Active]; - PMHx: 14:31 "heart valve leaks"; Chronic pain; Gastritis/Esophageal; Migraines; pulmonary fibrosis; bh1 Stomach Ulcers; - Immunization history:: Adult Immunizations up to date. - Social history:: Smoking status: Patient denies any tobacco usage or history of. - Family history:: not pertinent. - Hospitalizations: : No recent hospitalization is reported. ROS: 14:45 Constitutional: Negative for fever, chills, and weight loss, Eyes: Negative for injury, rn pain, redness, and discharge, Cardiovascular: Negative for chest pain, palpitations, and edema, Respiratory: Negative for shortness of breath, cough, wheezing, and pleuritic chest pain, Abdomen/GI: Negative for abdominal pain, nausea, vomiting, diarrhea, and constipation, MS/Extremity: Negative for injury and deformity, Skin: + rash and itching to body, diffusely Neuro: Negative for headache, weakness, numbness, tingling, and seizure. Exam: 14:45 Constitutional: This is a well developed, well nourished patient who is awake, alert, rn and in no acute distress. Skin: Warm, dry, a few erythematous macular lesions with raised centers, no bullae, no desquamation, no pustules. Vital Signs: 14:29 BP 138 / 63; Pulse 59; Resp 20; Temp 98.4; Pulse Ox 100% on R/A; Weight 84.82 kg; bh1 Height 5 ft. 5 in. (165.10 cm); Pain 6/10; 14:29 Body Mass Index 31.12 (84.82 kg, 165.10 cm) 1 MDM: 14:27 Patient medically screened. rn 14:45 Differential diagnosis: allergic reaction, insect bites. Data reviewed: vital signs, rn nurses notes, and as a result, I will discharge patient. Counseling: I had a detailed discussion with the patient and/or guardian regarding: the historical points, exam findings, and any diagnostic results supporting the discharge/admit diagnosis, the need for outpatient follow up, to return to the emergency department if symptoms worsen or persist or if there are any questions or concerns that arise at home. Response to treatment: There is no appreciated change of the patient's symptoms at this time, and as a result, I will discharge patient. Special discussion: I discussed with the patient/guardian in detail that at this point there is no indication for admission to the hospital. It is understood, however, that if the symptoms persist or worsen the patient needs to return immediately for re-evaluation. Administered Medications: 14:56 Drug: SOLU-Medrol (methylPREDNISolone sodium succinate) 125 mg Route: IM; Site: right tw2 deltoid; 15:10 Follow up: Response: No adverse reaction tw2 14:56 Drug: hydrOXYzine 50 mg Route: PO; tw2 15:10 Follow up: Response: No adverse reaction tw2 Disposition Summary: 10/24/21 14:49 Discharge Ordered Location: Home rn Problem: new rn Symptoms: are unchanged rn Condition: Stable rn Diagnosis - Acute allergic reaction to suspected insect bites rn Followup: rn - With: Private Physician - When: As needed - Reason: Recheck today's complaints, Re-evaluation by your physician Discharge Instructions: - Discharge Summary Sheet rn Forms: - Medication Reconciliation Form rn - Thank You Letter rn - Antibiotic barn hand - Prescription Opioid Use rn Prescriptions: - Hydroxyzine HCl 50 mg Oral Tablet - take 1 tablet by ORAL route every 8 hours As needed; 20 tablet; Refills: 0, rn Product Selection Permitted - Prednisone 20 mg Oral Tablet - take 3 tablets by ORAL route once daily for 5 days; 15 tablet; Refills: 0, rn Product Selection Permitted Signatures: Shai Spring MD MD rn Wise, Tara RN RN 2 Gena Burgos RN RN 1
--- NOTE | 2021-10-24 14:49 | ER ---
Nurse's Notes [facility] Name: Bety Ball Age: 76 yrs Sex: Female : 1945 Arrival Date: 10/24/2021 Time: 14:14 Bed 17 Private MD: Pascale Samuel Diagnosis: Acute allergic reaction to suspected insect bites Presentation: 10/24 14:29 Chief complaint: Patient states: "has been getting bit by something while tending to [facility] yard" she states this morning she noted whelps on her side and under her right arm. She stated she started having left arm and neck pain this morning. Coronavirus screen: Vaccine status: Patient reports receiving the 2nd dose of the covid vaccine. Client denies travel out of the [place] in the last 14 days. At this time, the client does not indicate any symptoms associated with coronavirus-19. Ebola Screen: Patient negative for fever greater than or equal to 101.5 degrees Fahrenheit, and additional compatible Ebola Virus Disease symptoms. Initial Sepsis Screen: Does the patient meet any 2 criteria? No. Patient's initial sepsis screen is negative. Does the patient have a suspected source of infection? No. Patient's initial sepsis screen is negative. Risk Assessment: Do you want to hurt yourself or someone else? Patient reports no desire to harm self or others. Onset of symptoms was October 23, 2021. 14:29 Method Of Arrival: Ambulatory [facility] 14:29 Acuity: TAY 3 [facility] Triage Assessment: 14:31 General: Appears in no apparent distress. Behavior is calm, cooperative, appropriate [facility] for age. Pain: Complains of pain in left side of neck and left arm. Historical: - Allergies: 14:31 Fentanyl; [facility] 14:31 Morphine; [facility] 14:31 Steroids (migraines); [facility] - Home Meds: 14:31 Imitrex Sub-Q [Active]; [place] 10-325 mg Oral tab 1 tab every 4 hours [Active]; Protonix bh1 Oral [Active]; Xanax Oral [Active]; Zomig Oral [Active]; - PMHx: 14:31 "heart valve leaks"; Chronic pain; Gastritis/Esophageal; Migraines; pulmonary fibrosis; 1 Stomach Ulcers; - Immunization history:: Adult Immunizations up to date. - Social history:: Smoking status: Patient denies any tobacco usage or history of. - Family history:: not pertinent. - Hospitalizations: : No recent hospitalization is reported. Screenin:36 Abuse screen: Denies threats or abuse. Nutritional screening: No deficits noted. tw2 Tuberculosis screening: No symptoms or risk factors identified. Fall Risk None identified. Assessment: 14:43 Reassessment: provider at bedside assessing pt at this time. General: Appears in no tw2 apparent distress. Neuro: Level of Consciousness is awake, alert, obeys commands, Oriented to person, place, time, situation. Respiratory: Airway is patent Respiratory effort is even, unlabored, Respiratory pattern is regular, symmetrical. Derm: small amounts of red bumps noted. 14:44 Reassessment: pt states that the steroid injections she gets a migraine from are the tw2 ones they injection into the spine and knee joint areas. dr. spring discussing with her the difference of steroids at this time. 15:11 Reassessment: Patient appears in no apparent distress at this time. No changes from tw2 previously documented assessment. Patient is alert, oriented x 3, equal unlabored respirations, skin warm/dry/pink. Vital Signs: 14:29 BP 138 / 63; Pulse 59; Resp 20; Temp 98.4; Pulse Ox 100% on R/A; Weight 84.82 kg; 1 Height 5 ft. 5 in. (165.10 cm); Pain 6/10; 14:29 Body Mass Index 31.12 (84.82 kg, 165.10 cm) [facility] ED Course: 14:14 Patient arrived in ED. am2 14:14 Pascale Samuel FNP-C is Private Physician. am2 14:27 Shai Spring MD is Attending Physician. rn 14:31 Triage completed. bh1 14:32 Arm band placed on left wrist. 1 14:32 Bed in low position. Call light in reach. tw2 14:35 Mary Rodriguez RN is Primary Nurse. tw2 14:58 Awaiting: im injection observation time prior to discharge. tw2 15:10 No provider procedures requiring assistance completed. Patient did not have IV access tw2 during this emergency room visit. Administered Medications: 14:56 Drug: SOLU-Medrol (methylPREDNISolone sodium succinate) 125 mg Route: IM; Site: right tw2 deltoid; 15:10 Follow up: Response: No adverse reaction tw2 14:56 Drug: hydrOXYzine 50 mg Route: PO; tw2 15:10 Follow up: Response: No adverse reaction tw2 Medication: 14:56 VIS not applicable for this client. tw2 Outcome: 14:49 Discharge ordered by . rn 15:10 Discharged to home ambulatory. tw2 15:10 Condition: stable 15:10 Discharge instructions given to patient, Instructed on discharge instructions, follow up and referral plans. no drinking with medication, no driving heavy equipment, medication usage, Demonstrated understanding of instructions, follow-up care, medications, Prescriptions given X 2. 15:11 Patient left the ED. tw2 Signatures: Shai Spring MD MD rn Wise, Tara, RN RN 2 Kandis Aldana [facility] Gena Burgos RN RN [facility] Corrections: (The following items were deleted from the chart) 14:35 14:29 Acuity: TAY 4 [place] [id number] 14:36 14:29 Chief complaint: Patient states: "has been getting bit by something while tending [facility] to yard" she states this morning she noted whelps on her side and under her right arm. [facility] 14:36 14:31 Pain: Complains of pain in left side of neck [place] [id number]
[2021-10-24] MEDS ORDERED: METHYLPREDNISOLONE 125 MG INJ ONE (14:56)
[2021-10-24] MEDS ORDERED: hydrOXYzine HCL 25 MG TAB ONE (14:56)
[2021-10-24 15:17] VITALS: BP 138/63; TEMP 98.4; O2SAT 100
== END 2021-10-24 15:11 | disposition home or self-care (01) ==
LOC: ER 14:11
DX: R21 Rash and other nonspecific skin eruption (principal); L29.9 Pruritus, unspecified; G89.29 Other chronic pain; Z88.5 Allergy status to narcotic agent; Z88.8 Allergy status to other drugs, medicaments and biological substances
CPT/HCPCS: 96372; 99283; J2930

== ENCOUNTER 2021-11-26 14:41 | Emergency (ER) | payer OTHER, MEDICARE ==
--- OUTSIDE RECORDS SUMMARY | 2021-11-26 14:46 | XMS REPORT | Continuity of Care Document ---
:1945 Author Organization [facility] t Address [address] [place] [address] Care Team Providers Name Role Phone Pascale Samuel Primary Care Physician Pascale Samuel Attending Clinician Unavailable TALHA SORIA Attending Clinician Unavailable Teddy Mancuso Attending Clinician Unavailable Talha Soria MD Attending Clinician Only, Adc Test Attending Clinician Unavailable Doctor Unassigned, [place] Attending Clinician Unavailable TALHA SORIA Admitting Clinician Unavailable Physician, No Primary or Family Admitting Clinician Unavaila Talha Lucia MD Admitting Clinician Payers Payer Name Policy Type Policy Number Effective Date Expiration Date S lisa MEDICARE PART A \T\ [id number] 2011 B 00:00:00 [facility] [id number] 2020 MEDICARE SUPPLEMENT 00:00:00 [employer] MEDICARE ERS [id number] 2016 00:00:00 Problems This patient has no known problems. Allergies, Adverse Reactions, Alerts Allergy Allergy Status Severity Reaction(s) Onset Inactive Treating Comm ents Source Name Type Date Date Clinician Pentazoc DA Active SV GI [facility] ine UPSET/NAUSEA 10-11 Ella us Lactate /VOMITING/RA 00:00: Chr isti [facility] iodine DA Active MO RASH HCA 10-11 Corpus 00:00: Aylin [facility] predniso DA Active MO GI [facility] ne UPSET/RASH 10-11 Corpus 00:00: Aylin [facility] fentanyl DA Active SV ITCHING/GI [facility] UPSET 10-11 Corpus 00:00: Aylin [facility] Morphine Drug Active Unknown - Makes her Un [place]reida Intolera See comments 12-23 disorient ity of nce 00:00: ed [facility] MORPHINE DRUG Active Unknown-Cmnt Un [place]re[place] INGREDI 12-23 ity of 00:00: [place] [address] Medical Branch Fentanyl Drug Active Other - See Severe Uni vers Allergy comments 12-11 headache ity o f 00:00: for [place] [address] several Medical days. Branch FENTANYL DRUG Active Med Other-Cmnt Univ ers INGREDI 12-11 ity of 00:00: [place] [address] Medical Branch Pentazoc DA Active SV H[facility] ine 10-04 Corpus Lactate 00:00: Aylin [facility] iodine DA Active MO HCA 10-04 Corpus 00:00: Aylin [facility] predniso DA Active MO HCA ne 10-04 Corpus 00:00: Aylin [facility] fentanyl DA Active SV HCA 10-04 Corpus 00:00: Aylin [facility] IODINE DA Active MO H[facility] CONTRAST 10-04 Corpus 00:00: Aylin [facility] No Known DA Active U HCA Food 09-20 [place] Allergie 00:00: Aylin s [facility] No Known DA Active U 2005-0 H[facility] Other 09-20 [place] Allergie 00:00: Aylin s [facility] statin Adverse Active myalgias Common Reaction [facility] Steroids Adverse Active migraine Commo n Reaction [facility] Dexilant Adverse Active muscle Common Reaction cramps [facility] Lyrica Adverse Active edema Common Reaction [facility] Fentanyl Adverse Active migraine Commo n Reaction [facility] Cipro Adverse Active confusion Common Reaction [facility] Predniso Adverse Active migraines Comm on ne Reaction [facility] NO KNOWN Drug Active Univers ALLERGIE Class ity of S [facility] Social History Social Habit Start Date Stop Date Quantity Comments Source Exposure to Yes [facility] SARS-CoV-2 [facility] (event) Branch Tobacco use and 2020-12-24 2020-12-24 Never used Universit y of exposure 00:00:00 00:00:00 [facility] Alcohol intake 2020-12-24 2020-12-24 Current University 00:00:00 00:00:00 non-drinker of [facility] alcohol [place] (finding) Sex [birth year] Universit y of 00:00:00 00:00:00 [facility] Smoking Status Start Date Stop Date Source Never smoker [facility] Medications Ordered Filled Start Stop Current Ordering Indication Dosage Frequency Signature Comments Components Source Medication Medication Date Date Medication? Clinician (SIG) Name Name ALPRAZolam Yes .5mg Take 0.5 Uni vers 0.5 mg 9-08 mg by ity of tablet 16:17: mouth 3 [place] [address] (three) Medical times [place] daily. albuterol Yes 2{puff} Inhale 2 U nivers (VENTOLIN 9-08 Puffs ity of HFA) 90 16:17: every 6 [place] mcg/actuati 02 (six) Medical on inhaler hours as Branc h needed for Wheezing or Shortness of Breath. linaCLOtide Yes Take by Uni vers (LINZESS) 9-08 mouth. ity of 72 mcg Cap 16:17: [address] ALPRAZolam Yes .5mg Take 0.5 Uni vers 0.5 mg 9-08 mg by ity of tablet 16:17: mouth 3 [place] [address] (three) Medical times [place] daily. albuterol Yes 2{puff} Inhale 2 U nivers (VENTOLIN 9-08 Puffs ity of HFA) 90 16:17: every 6 [place] mcg/actuati 02 (six) Medical on inhaler hours as Branc h needed for Wheezing or Shortness of Breath. linaCLOtide Yes Take by Uni vers (LINZESS) 9-08 mouth. ity of 72 mcg Cap 16:17: [address] ALPRAZolam Yes .5mg Take 0.5 Uni vers 0.5 mg 9-08 mg by ity of tablet 16:17: mouth 3 [place] [address] (three) Medical times [place] daily. albuterol 0 Yes 2{puff} Inhale 2 U nivers (VENTOLIN 9-08 Puffs ity of HFA) 90 16:17: every 6 [place] mcg/actuati 02 (six) Medical on inhaler hours as Branc h needed for Wheezing or Shortness of Breath. linaCLOtide Yes Take by Uni vers (LINZESS) 9-08 mouth. ity of 72 mcg Cap 16:17: [address] ALPRAZolam Yes .5mg Take 0.5 Uni vers 0.5 mg 9-08 mg by ity of tablet 16:17: mouth 3 [place] (three) Medical times [place] daily. albuterol Yes 2{puff} Inhale 2 U nivers (VENTOLIN 9-08 Puffs ity of HFA) 90 16:17: every 6 [place] mcg/actuati 02 (six) Medical on inhaler hours as Branc h needed for Wheezing or Shortness of Breath. linaCLOtide Yes Take by Uni vers (LINZESS) 9-08 mouth. ity of 72 mcg Cap 16:17: [address] water for Yes PRN, Univers irrigation 12-24 Starting ity o f irrigation 13:58: Tue12/24/20 [place] solution 00 at 0858, Medical Until Branch Discontinu ed, Routine, Intra-op simethicone Yes PRN, Univer s (GAS RELIEF 12-24 Starting ity of (SIMETHICON 13:58: Tue12/24/20 [place] E)) 40 00 at 0858, Medical mg/0.6 mL Until Branch drops Discontinu ed, Routine, Intra-op water for Yes PRN, Univers irrigation 12-24 Starting ity o f irrigation 13:58: Tue12/24/20 [place] solution 00 at 0858, Medical Until Branch Discontinu ed, Routine, Intra-op simethicone Yes PRN, Univer s (GAS RELIEF 12-24 Starting ity of (SIMETHICON 13:58: 12/24/20 [place] E)) 40 00 at 0858, Medical mg/0.6 mL Until Branch drops Discontinu ed, Routine, Intra-op water for 2020- No PRN, Univers irrigation 12-24 Starting ity of irrigation 13:58: 18:17 12/24/20 [place] solution 00 :03 at 0858, Medical Until Wed Branch 12/24/20 at 1317, Routine, Intra-op simethicone 2020- No PRN, Unive rs (GAS RELIEF 12-24 Starting ity of (SIMETHICON 13:58: 18:17 12/24/20 [place] E)) 40 00 :03 at 0858, Medical mg/0.6 mL Until Wed Branc h drops 12/24/20 at 1317, Routine, Intra-op water for 2020- No PRN, Univers irrigation 12-24 Starting ity of irrigation 13:58: 18:17 12/24/20 [place] solution 00 :03 at 0858, Medical Until Wed Branch 12/24/20 at 1317, Routine, Intra-op simethicone 2020- No PRN, Unive rs (GAS RELIEF 12-24 Starting ity of (SIMETHICON 13:58: 18:17 12/24/20 [place] E)) 40 00 :03 at 0858, Medical mg/0.6 mL Until Wed Branc h drops 12/24/20 at 1317, Routine, Intra-op lactated 2020- No 1000mL at 42 [facility] rs ringers IV 12-24 mL/hr, ity of infusion 12:45: 12:49 1,000 mL, Singh as 1,000 mL 00 :00 IV Medical Infusion, Branch ONCE, 1 dose, 12/24/20 at 0745, Routine, DSU Pre-op lactated 2020- No 1000[facility] 12-2408 mL/hr, ity of infusion 12:45: 12:49 1,000 mL, Singh as 1,000 mL 00 :00 IV Medical Infusion, Branch ONCE, 1 dose, Tue12/24/20 at 0745, Routine, DSU Pre-op lactated 2020-0 2020- No 1000mL at 42 Unive rs ringers IV 12-24 09-08 mL/hr, ity of infusion 12:45: 12:49 1,000 mL, Singh as 1,000 mL 00 :00 IV Medical Infusion, Branch ONCE, 1 dose, Tue12/24/20 at 0745, Routine, DSU Pre-op lactated 2020-0 2020- No 1000mL at 42 Unive rs ringers IV 12-24 09-08 mL/hr, ity of infusion 12:45: 12:49 1,000 mL, Singh as 1,000 mL 00 :00 IV Medical Infusion, Branch ONCE, 1 dose, Tue12/24/20 at 0745, Routine, DSU Pre-op linaCLOtide 2020-0 Yes Take by Uni vers (LINZESS) 9-07 mouth. ity of 72 mcg Cap 13:36: [address] linaCLOtide 2020-0 Yes Take by Uni vers (LINZESS) 9-07 mouth. ity of 72 mcg Cap 13:36: [address] linaCLOtide 2020-0 Yes Take by Uni vers (LINZESS) 9-07 mouth. ity of 72 mcg Cap 13:36: [address] linaCLOtide 2020-0 Yes Take by Uni vers (LINZESS) 9-07 mouth. ity of 72 mcg Cap 13:36: [address] Pantoprazol 2020-0 2020- No 40mg Take 40 mg Univers e 40 mg 12-23 by mouth ity of delayed-rel 13:35: 00:00 daily. Singh as ease 09 :00 Medical suspension Branch Pantoprazol 2020-0 2020- No 40mg Take 40 mg Univers e 40 mg 12-23 by mouth ity of delayed-rel 13:35: 00:00 daily. [place] as ease 09 :00 Medical suspension Branch Pantoprazol 2020-0 2020- No 40mg Take 40 mg Univers e 40 mg 12-23 by mouth ity of delayed-rel 13:35: 00:00 daily. [place] as ease 09 :00 Medical suspension Branch Pantoprazol 2020-0 2020- No 40mg Take 40 mg Univers e 40 mg 12-23 by mouth ity of delayed-rel 13:35: 00:00 daily. Singh as ease 09 :00 Medical suspension Branch sumatriptan Yes TAKE ONE Un nere[place] 100 mg 7-04 (1) ity of tablet 00:00: TABLET(S) 00 BY MOUTH Medical AT ONSET Branch OF HEADACHE, MAY REPEAT 1 TABLET IN 2 HOURS IF NEEDED (MAX 2 TABLETS PER DAY). sumatriptan Yes TAKE ONE [place] 100 mg 7-04 (1) ity of tablet 00:00: TABLET(S) 00 BY MOUTH Medical AT ONSET Branch OF HEADACHE, MAY REPEAT 1 TABLET IN 2 HOURS IF NEEDED (MAX 2 TABLETS PER DAY). sumatriptan Yes TAKE ONE [place] 100 mg 7-04 (1) ity of tablet 00:00: TABLET(S) BY MOUTH Medical AT ONSET Branch OF HEADACHE, MAY REPEAT 1 TABLET IN 2 HOURS IF NEEDED (MAX 2 TABLETS PER DAY). sumatriptan Yes TAKE ONE [place] 100 mg 7-04 (1) ity of tablet 00:00: TABLET(S) BY MOUTH Medical AT ONSET Branch OF HEADACHE, MAY REPEAT 1 TABLET IN 2 HOURS IF NEEDED (MAX 2 TABLETS PER DAY). sumatriptan Yes TAKE ONE [place] 100 mg 7-04 (1) ity of tablet 00:00: TABLET(S) BY MOUTH Medical AT ONSET Branch OF HEADACHE, MAY REPEAT 1 TABLET IN 2 HOURS IF NEEDED (MAX 2 TABLETS PER DAY). sumatriptan Yes TAKE ONE [place] 100 mg 7-04 (1) ity of tablet 00:00: TABLET(S) 00 BY MOUTH Medical AT ONSET Branch OF HEADACHE, MAY REPEAT 1 TABLET IN 2 HOURS IF NEEDED (MAX 2 TABLETS PER DAY). sumatriptan Yes TAKE ONE [place] 100 mg 7-04 (1) ity of tablet 00:00: TABLET(S) 00 BY MOUTH Medical AT ONSET Branch OF HEADACHE, MAY REPEAT 1 TABLET IN 2 HOURS IF NEEDED (MAX 2 TABLETS PER DAY). sumatriptan Yes TAKE ONE [place] 100 mg 7-04 (1) ity of tablet 00:00: TABLET(S) [place] 00 BY MOUTH Medical AT [place] Branch OF HEADACHE, MAY REPEAT 1 TABLET IN 2 HOURS IF NEEDED (MAX 2 TABLETS PER DAY). omeprazole Yes TAKE ONE Uni vers 40 mg 6-22 (1) ity of capsule 00:00: CAP[place]LE(S) [place] 00 BY MOUTH Medical TWICE A Branch DAY. omeprazole Yes TAKE ONE Uni vers 40 mg 6-22 (1) ity of capsule 00:00: CAPSULE(S) [place] 00 BY MOUTH Medical TWICE A Branch DAY. omeprazole Yes TAKE ONE Uni vers 40 mg 6-22 (1) ity of capsule 00:00: CAPSULE(S) [place] 00 BY MOUTH Medical TWICE A Branch DAY. omeprazole Yes TAKE ONE Uni vers 40 mg 6-22 (1) ity of capsule 00:00: CAPSULE(S) [place] 00 BY MOUTH Medical TWICE A Branch DAY. omeprazole Yes TAKE ONE Uni vers 40 mg 6-22 (1) ity of capsule 00:00: CAPSULE(S) [place] 00 BY MOUTH Medical TWICE A Branch DAY. omeprazole Yes TAKE ONE Uni vers 40 mg 6-22 (1) ity of capsule 00:00: CAPSULE(S) [place] 00 BY MOUTH Medical TWICE A Branch DAY. omeprazole Yes TAKE ONE Uni vers 40 mg 6-22 (1) ity of capsule 00:00: CAPSULE(S) [place] 00 BY MOUTH Medical TWICE A Branch DAY. omeprazole Yes TAKE ONE Uni vers 40 mg 6-22 (1) ity of capsule 00:00: CAPSULE(S) [place] 00 BY MOUTH Medical TWICE A Branch DAY. HYDROcodone Yes TAKE ONE Un nere[place] -acetaminop 6-18 (1) ity of hen 10-325 00:00: TABLET(S) [place] mg tablet 00 BY MOUTH Medica l EVERY SIX Branch HOURS NEEDED. ibuprofen Yes TAKE ONE Univ ers 800 mg 6-18 (1) ity of tablet 00:00: TABLET(S) [place] 00 BY MOUTH Medical ONCE A DAY Branch NEEDED WITH FOOD OR MILK. lidocaine 5 Yes APPLY ONE U nivers % (700 6-18 (1) ity of mg/patch) 00:00: PATCH(ES) [place] as patch 00 TO THE Medical SKIN AFTER Branch 12 HOURS. (12 HOURS ON, 12 HOURS OFF). HYDROcodone 0 Yes TAKE ONE Un [place]re[place] -acetaminop 6-18 (1) ity of hen 10-325 00:00: TABLET(S) [place] mg tablet 00 BY MOUTH Medica l EVERY SIX Branch HOURS NEEDED. ibuprofen Yes TAKE ONE Univ ers 800 mg 6-18 (1) ity of tablet 00:00: TABLET(S) [place] 00 BY MOUTH Medical ONCE A DAY Branch NEEDED WITH FOOD OR MILK. lidocaine 5 Yes APPLY ONE U nivers % (700 6-18 (1) ity of mg/patch) 00:00: PATCH(ES) [place] as patch 00 TO THE Medical SKIN AFTER Branch 12 HOURS. (12 HOURS ON, 12 HOURS OFF). HYDROcodone Yes TAKE ONE Un nereida -acetaminop 6-18 (1) ity of hen 10-325 00:00: TABLET(S) [place] mg tablet 00 BY MOUTH Medica l EVERY SIX Branch HOURS NEEDED. ibuprofen Yes TAKE ONE Univ ers 800 mg 6-18 (1) ity of tablet 00:00: TABLET(S) [place] 00 BY MOUTH Medical ONCE A DAY Branch NEEDED WITH FOOD OR MILK. lidocaine 5 Yes APPLY ONE U nivers % (700 6-18 (1) ity of mg/patch) 00:00: PATCH(ES) [place] as patch 00 TO THE Medical SKIN AFTER Branch 12 HOURS. (12 HOURS ON, 12 HOURS OFF). HYDROcodone Yes TAKE ONE Un nere[place] -acetaminop 6-18 (1) ity of hen 10-325 00:00: TABLET(S) [place] mg tablet 00 BY MOUTH Medica l EVERY SIX Branch HOURS NEEDED. ibuprofen Yes TAKE ONE Univ ers 800 mg 6-18 (1) ity of tablet 00:00: TABLET(S) [place] 00 BY MOUTH Medical ONCE A DAY Branch NEEDED WITH FOOD OR MILK. lidocaine 5 Yes APPLY ONE U nivers % (700 6-18 (1) ity of mg/patch) 00:00: PATCH(ES) [place] as patch 00 TO THE Medical SKIN AFTER Branch 12 HOURS. (12 HOURS ON, 12 HOURS OFF). HYDROcodone Yes TAKE ONE Un nere[place] -acetaminop 6-18 (1) ity of hen 10-325 00:00: TABLET(S) [place] mg tablet 00 BY MOUTH Medica l EVERY SIX Branch HOURS NEEDED. ibuprofen Yes TAKE ONE Univ ers 800 mg 6-18 (1) ity of tablet 00:00: TABLET(S) [place] 00 BY MOUTH Medical ONCE A DAY Branch NEEDED WITH FOOD OR MILK. lidocaine 5 Yes APPLY ONE U nivers % (700 6-18 (1) ity of mg/patch) 00:00: PATCH(ES) [place] as patch 00 TO THE Medical SKIN AFTER Branch 12 HOURS. (12 HOURS ON, 12 HOURS OFF). HYDROcodone Yes TAKE ONE Un nere[place] -acetaminop 6-18 (1) ity of hen 10-325 00:00: TABLET(S) [place] mg tablet 00 BY MOUTH Medica l EVERY SIX Branch HOURS NEEDED. ibuprofen Yes TAKE ONE Univ ers 800 mg 6-18 (1) ity of tablet 00:00: TABLET(S) [place] 00 BY MOUTH Medical ONCE A DAY Branch NEEDED WITH FOOD OR MILK. lidocaine 5 Yes APPLY ONE U nivers % (700 6-18 (1) ity of mg/patch) 00:00: PATCH(ES) [place] as patch 00 TO THE Medical SKIN AFTER Branch 12 HOURS. (12 HOURS ON, 12 HOURS OFF). HYDROcodone Yes TAKE ONE Un nere[place] -acetaminop 6-18 (1) ity of hen 10-325 00:00: TABLET(S) [place] mg tablet 00 BY MOUTH Medica l EVERY SIX Branch HOURS NEEDED. ibuprofen Yes TAKE ONE Univ ers 800 mg 6-18 (1) ity of tablet 00:00: TABLET(S) [place] 00 BY MOUTH Medical ONCE A DAY Branch NEEDED WITH FOOD OR MILK. lidocaine 5 Yes APPLY ONE U nivers % (700 6-18 (1) ity of mg/patch) 00:00: PATCH(ES) [place] as patch 00 TO THE Medical SKIN AFTER Branch 12 HOURS. (12 HOURS ON, 12 HOURS OFF). HYDROcodone Yes TAKE ONE Un [place]re[place] -acetaminop 6-18 (1) ity of hen 10-325 00:00: TABLET(S) [place] mg tablet 00 BY MOUTH Medica l EVERY SIX Branch HOURS NEEDED. ibuprofen Yes TAKE ONE Univ ers 800 mg 6-18 (1) ity of tablet 00:00: TABLET(S) [place] 00 BY MOUTH Medical ONCE A DAY Branch NEEDED WITH FOOD OR MILK. lidocaine 5 Yes APPLY ONE U nivers % (700 6-18 (1) ity of mg/patch) 00:00: PATCH(ES) [place] as patch 00 TO THE Medical SKIN AFTER Branch 12 HOURS. (12 HOURS ON, 12 HOURS OFF). ALPRAZolam Yes .5mg Take 0.5 Uni vers 0.5 mg 1-11 mg by ity of tablet 21:48: mouth 3 [place] 00 (three) Medical times Branch daily. albuterol Yes 2{puff} Inhale 2 U nivers (VENTOLIN 1-11 Puffs ity of HFA) 90 21:48: every 6 [place] mcg/actuati 00 (six) Medical on inhaler hours as Branc h needed for Wheezing or Shortness of Breath. ALPRAZolam Yes .5mg Take 0.5 Uni vers 0.5 mg 1-11 mg by ity of tablet 21:48: mouth 3 [place] 00 (three) Medical times Branch daily. albuterol Yes 2{puff} Inhale 2 U nivers (VENTOLIN 1-11 Puffs ity of HFA) 90 21:48: every 6 [place] mcg/actuati 00 (six) Medical on inhaler hours as Branc h needed for Wheezing or Shortness of Breath. ALPRAZolam Yes .5mg Take 0.5 Uni vers 0.5 mg 1-11 mg by ity of tablet 21:48: mouth 3 [place] 00 (three) Medical times Branch daily. albuterol Yes 2{puff} Inhale 2 U nivers (VENTOLIN 1-11 Puffs ity of HFA) 90 21:48: every 6 [place] mcg/actuati 00 (six) Medical on inhaler hours as Branc h needed for Wheezing or Shortness of Breath. ALPRAZolam Yes .5mg Take 0.5 Uni vers 0.5 mg 1-11 mg by ity of tablet 21:48: mouth 3 [place] 00 (three) Medical times Branch daily. albuterol Yes 2{puff} Inhale 2 U nivers (VENTOLIN 1-11 Puffs ity of HFA) 90 21:48: every 6 [place] mcg/actuati 00 (six) Medical on inhaler hours as Branc h needed for Wheezing or Shortness of Breath. levothyroxi 2020- No [id number] 25ug Take 1 Univers ne 25 mcg 04-28 tablet by ity of tablet 00:00: 00:00 mouth [place] 00 :00 every Medical morning. Branch levothyroxi 2020- No [id number] 25ug Take 1 Univers ne 25 mcg 04-28 tablet by ity of tablet 00:00: 00:00 mouth [place] 00 :00 every Medical morning. [place] levothyroxi 2020- No [id number] 25ug Take 1 Univers ne 25 mcg 04-28 tablet by ity of tablet 00:00: 00:00 mouth [place] 00 :00 every Medical morning. Branch levothyroxi 2020- No [id number] 25ug Take 1 Univers ne 25 mcg 04-28 tablet by ity of tablet 00:00: 00:00 mouth [place] 00 :00 every Medical morning. [place] atenolol 2017-04- No [id number] 25mg Take 1 Univers mg tablet 06-08 tablet by ity of 00:00: 00:00 mouth [place] 00 :00 daily. [facility] Branch atenolol 2017-04- No [id number] 25mg Take 1 Univers mg tablet 06-08 tablet by ity of 00:00: 00:00 mouth [place] 00 :00 daily. [facility] Branch atenolol 2017-04- No [id number] 25mg Take 1 Univers mg tablet 06-08 tablet by ity of 00:00: 00:00 mouth [place] 00 :00 daily. [facility] atenolol 2017-04- No [id number] 25mg Take 1 Univers mg tablet 06-08 tablet by ity of 00:00: 00:00 mouth [place] 00 :00 daily. Medical Branch Artificial Artificial Yes [place] not Co mmon Tear Tear [place] defined Spirit Solution Solution [facility] Breo Breo Yes [place] 1 puff Common Ellipta Ellipta [place] Spirit [facility] ProAir HFA ProAir HFA Yes [place] 1 to 2 Common [place] puffs as Spirit needed [facility] Pinson Pinson Yes P[place] 1 tablet Common [place] as needed [facility] Levothyroxi Levothyroxi Yes [place] 1 tablet Common ne Sodium ne Sodium [place] on an Spi rit empty - CHI stomach in [facility] Xanax Xanax Yes [place] 1 tablet Common [place] [facility] Pantoprazol Pantoprazol Yes [place] 1 tablet Common e Sodium e Sodium [place] [facility] Immunizations Ordered Immunization Filled Immunization Date Status Commen ts Source Name Name Prevnar 13 Prevnar 13 2017-09-05 Completed [facility] -Pneumonia Vaccine -Pneumonia Vaccine 00:00:00 - [facility] Vital Signs Vital Name Observation Time Observation Value Comments Source Systolic blood 2020-12-24 15:20:00 148 mm[Hg] Univer sity [facility] Diastolic blood 2020-12-24 15:20:00 57 mm[Hg] Unive [facility] Heart rate 2020-12-24 15:20:00 55 /min [facility] Oxygen saturation in 2020-12-24 15:20:00 99 /min [facility] Arterial blood by [facility] Pulse oximetry Branch Respiratory rate 2020-12-24 14:40:00 18 /min [facility] Body temperature 2020-12-24 14:05:00 36.39 Ceci [facility] Body height 2020-12-23 13:15:00 165.1 cm [facility] Body weight 2020-12-23 13:15:00 91.173 kg [facility] BMI 2020-12-23 13:15:00 33.45 kg/m2 [facility] Diastolic blood 2020-12-24 14:25:00 71 mm[Hg] Unive [facility] Heart rate 2020-12-24 14:25:00 50 /min [facility] Respiratory rate 2020-12-24 14:25:00 15 /min [facility] Oxygen saturation in 2020-12-24 14:25:00 100 /min [facility] Arterial blood by [facility] Pulse oximetry Branch Systolic blood 2020-12-24 14:25:00 137 mm[Hg] Univer sity [facility] Body temperature 2020-12-24 14:05:00 36.39 Ceci [facility] Body height 2020-12-23 13:15:00 165.1 cm [facility] Body weight 2020-12-23 13:15:00 91.173 kg [facility] BMI 2020-12-23 13:15:00 33.45 kg/m2 [facility] Procedures Procedure Date / Time Performing Clinician Source Performed EGD (ENDO) 2020-12-24 13:45:54 Pascale Samuel [facility] EGD (ENDO) 2020-12-24 13:45:54 Pascale Samuel [facility] ESOPHAGOGASTRODUODENOSCOPY 2020-12-24 13:41:00 Angelina Soria [facility] ASSIGNMENT OF BENEFITS 2020-12-23 18:01:41 Doctor Unassigned, [facility] Name [facility] EXTERNAL PROVIDER RECORDS 2020-11-27 05:01:00 Doctor Unassigned, [facility] [place] [facility] EXTERNAL PROVIDER RECORDS 2020-11-27 05:01:00 Doctor Unassigned, [facility] [place] [facility] Encounters Start End Encounter Admission Attending Care Care Encounter Source Date/Time Date/Time Type Type Clinicians Facility Department ID 2021-10-15 Outpatient SHANNON Samuel [facility] [id number] Common 09:02:00 Pascale [facility] 2021-10-13 [facility] [id number] Common 08:26:01 Pascale Romano [facility] 2021-10-08 Outpatient SHANNON Samuel [facility] [id number] Common 09:01:00 [place] [facility] 2021-05-13 Outpatient [place], STLMLC STLMLC [id number] Common 14:36:58 Pascale [facility] 2021-05-13 Outpatient [place], STLMLC STLMLC [id number] Common 14:23:25 P[place]ale [facility] 2021-05-13 Outpatient [place], STLMLC STLMLC [id number] Common 14:22:06 P[place]ale [facility] 2021-05-13 Outpatient [place], STLMLC STLMLC [id number] Common 14:20:18 P[place]ale [facility] 2021-05-13 Outpatient [place], STLMLC STLMLC [id number] Common 12:51:54 [place] [address] [facility] 2021-05-13 Outpatient [place], STLMLC STLMLC [id number] Common 12:26:42 [place] [address] [facility] 2021-05-13 Outpatient [place], STLMLC STLMLC [id number] Common 12:18:08 P[place]ale [facility] 2021-05-13 Outpatient [place], STLMLC STLMLC [id number] Common 11:20:21 [place] [address] [facility] 2021-05-13 Outpatient [place], STLMLC STLMLC [id number] Common 11:14:59 [place] [address] [facility] 2021-05-13 Outpatient [place], STLMLC STLMLC [id number] Common 11:14:35 [place] [address] [facility] 2021-05-13 Outpatient [place], STLMLC STLMLC [id number] Common 11:08:18 [place] [address] [facility] 2021-02-16 Outpatient R REYNA [facility] [id number] Univers 17:48:[address] [facility] 2021-10-15 2021-10-15 ambulatory STLMLC STLMLC [id number] Common 00:00:00 00:00:00 [facility] 2021-10-11 2021-10-11 Emergency [facility] [id number] [facility] 20:49:00 22:10:00 Teddy 00 [facility] 2021-10-11 2021-10-11 Emergency EM [facility] [id number] [facility] 20:49:00 20:49:00 [facility] 2021-09-16 2021-09-16 ambulatory STLMLC STLMLC [id number] Common 00:00:00 00:00:00 [facility] 2021-07-13 2021-07-13 ambulatory STLMLC STLMLC [id number] Common 00:00:00 00:00:00 [facility] 2021-07-13 2021-07-13 ambulatory STLMLC STLMLC [id number] Common 00:00:00 00:00:00 [facility] 2021-07-08 2021-07-08 ambulatory STLMLC STLMLC [id number] Common 00:00:00 00:00:00 [facility] 2021-06-17 2021-06-17 ambulatory STLMLC STLMLC [id number] Common 00:00:00 00:00:00 [facility] 2021-06-02 2021-06-02 ambulatory STLMLC STLMLC [id number] Common 00:00:00 00:00:00 [facility] 2021-05-20 2021-05-20 ambulatory STLMLC STLMLC [id number] Common 00:00:00 00:00:00 [facility] 2021-05-20 2021-05-20 ambulatory STLMLC STLMLC [id number] Common 00:00:00 00:00:00 [facility] 2021-05-14 2021-05-14 ambulatory STLMLC STLMLC [id number] Common 00:00:00 00:00:00 [facility] 2021-05-07 2021-05-07 ambulatory STLMLC STLMLC [id number] Common 00:00:00 00:00:00 [facility] 2021-05-06 2021-05-06 ambulatory STLMLC STLMLC [id number] Common 00:00:00 00:00:00 [facility] 2021-04-30 2021-04-30 ambulatory STLMLC STLMLC [id number] Common 00:00:00 00:00:00 [facility] 2021-04-27 2021-04-27 ambulatory STLMLC STLMLC [id number] Common 00:00:00 00:00:00 [facility] 2021-04-23 2021-04-23 ambulatory STLMLC STLMLC [id number] Common 00:00:00 00:00:00 [facility] 2021-04-21 2021-04-21 ambulatory STLMLC STLMLC [id number] Common 00:00:00 00:00:00 [facility] 2021-04-20 2021-04-20 ambulatory STLMLC STLMLC [id number] Common 00:00:00 00:00:00 [facility] 2021-04-13 2021-04-13 ambulatory STLMLC STLMLC [id number] Common 00:00:00 00:00:00 [facility] 2021-04-13 2021-04-13 ambulatory STLMLC STLMLC [id number] Common 00:00:00 00:00:00 [facility] 2021-04-08 2021-04-08 ambulatory STLMLC STLMLC [id number] Common 00:00:00 00:00:00 [facility] 2021-03-31 2021-03-31 ambulatory STLMLC STLMLC [id number] Common 00:00:00 00:00:00 [facility] 2021-03-27 2021-03-27 ambulatory STLMLC STLMLC [id number] Common 00:00:00 00:00:00 [facility] 2021-01-09 2021-01-09 Outpatient STLMLC STLMLC [id number] Common 00:00:00 00:00:00 [facility] 2020-12-24 2020-12-24 Hospital [facility] [id number] Univers 07:36:00 10:53:00 Encounter Talha amaro [id number] [facility] [id number] [id number] [facility] [address] 2020-12-24 2020-12-24 Surgery [facility] [id number] Univers 08:55:00 09:29:00 Talha amaro [id number] [facility] [id number] [id number] [facility] [address] 2020-12-23 2020-12-23 Laboratory Only, Adc Test [facility] [id number]. [id number] Univers 13:02:51 13:17:51 Only Talha S[place] 350.1.1 3.10 [id number] [id number] [facility] [address] 2020-12-23 2020-12-23 Outpatient R [facility] [id number] Univers 10:45:00 10:45:00 [id number] ity of [facility] 2020-12-23 2020-12-[address] [facility] [id number] Univers 10:45:00 10:45:00 TALHA Amaro o f [facility] 2020-12-23 2020-12-23 Orders Doctor RAMIREZ [id number] Univers 00:00:00 00:00:00 Only Unassigned, MYA [id number] ity of [place] [facility] [id number] Singh as [id number] [facility] [address] 2020-11-07 2020-11-07 Outpatient R [facility] [id number] Univers 16:15:00 16:15:[id number] [facility] 2020-11-07 2020-11-07 Outpatient R RE[facility] [id number] Univers 16:15:00 16:15:00 TALHA Amaro [facility] 2020-10-14 2020-10-14 Outpatient STLMLC STLMLC [id number] Common 00:00:00 00:00:00 [facility] 2020-10-10 2020-10-10 Outpatient STLMLC STLMLC [id number] Common 00:00:00 00:00:00 [facility] 2020-08-06 2020-08-06 Outpatient STLMLC STLMLC [id number] Common 00:00:00 00:00:00 [facility] 2020-06-13 2020-06-13 Outpatient STLMLC STLMLC [id number] Common 00:00:00 00:00:00 [facility] 2020 2020 Outpatient STLMLC STLMLC [id number] Common 00:00:00 00:00:00 [facility] 2020-04-21 2020-04-21 Outpatient STLMLC STLMLC [id number] Common 00:00:00 00:00:00 [facility] 2020-04-08 2020-04-08 Outpatient STLMLC STLMLC [id number] Common 00:00:00 00:00:00 [facility] 2020-03-31 2020-03-31 Outpatient STLMLC STLMLC [id number] Common 00:00:00 00:00:00 [facility] 2020-03-17 2020-03-17 Outpatient STLMLC STLMLC [id number] Common 00:00:00 00:00:00 [facility] 2020-03-11 2020-03-11 Outpatient STLMLC STLMLC [id number] Common 00:00:00 00:00:00 [facility] 2020-02-27 2020-02-27 Outpatient STLMLC STLMLC [id number] Common 00:00:00 00:00:00 [facility] 2020-02-20 2020-02-20 Outpatient STLMLC STLMLC [id number] Common 00:00:00 00:00:00 [facility] 2020-02-15 2020-02-15 Outpatient STLMLC STLMLC [id number] Common 00:00:00 00:00:00 [facility] 2020-01-30 2020-01-30 Outpatient STLMLC STLMLC [id number] Common 00:00:00 00:00:00 [facility] 2020-01-22 2020-01-22 Outpatient STLMLC STLMLC [id number] Common 00:00:00 00:00:00 [facility] 2019-11-28 2019-11-28 [facility] [id number] Common 13:45:00 13:45:00 [facility] [address] [facility] 2019-10-24 2019-10-24 [facility] [id number] Common 17:45:00 17:45:00 [facility] [address] [facility] 2019-10-01 2019-10-01 [facility] [id number] Common 15:20:00 15:20:00 t [facility] [address] [facility] 2019-09-11 2019-09-11 [facility] [id number] Common 15:20:00 15:20:00 t [facility] [address] [facility] 2019-08-20 2019-08-20 [facility] [id number] Common 10:34:00 10:34:00 t [facility] [address] [facility] 2019-08-15 2019-08-15 [facility] [id number] Common 13:40:00 13:40:00 [facility] [address] [facility] 2019-08-14 2019-08-14 [facility] [id number] Common 13:10:00 13:10:[address] [facility] 2019-07-06 2019-07-06 [facility] [id number] Common 13:40:00 13:40:[address] [facility] 2019-07-06 2019-07-06 [facility] [id number] Common 11:29:00 11:29:[address] [facility] 2019-06-06 2019-06-06 [facility] [id number] Common 11:40:00 11:40:[address] [facility] 2019-06-04 2019-06-04 [facility] [id number] Common 15:00:00 15:00:[address] [facility] 2019-05-30 2019-05-30 [facility] [id number] Common 11:54:00 11:54:[address] [facility] 2019-05-29 2019-05-29 [facility] [id number] Common 14:20:00 14:20:[address] [facility] 2019-05-11 2019-05-11 [facility] [id number] Common 14:23:00 14:23:[address] [facility] 2019-04-06 2019-04-06 [facility] [id number] Common 11:25:00 11:25:00 t Specialty/U Sp jaquan Specialty rology - [facility] 2019-04-05 2019-04-05 [facility] [id number] Common 15:00:00 15:00:[address] [facility] 2019-02-16 2019-02-16 [facility] [id number] Common 13:56:00 13:56:[address] [facility] 2019-02-01 2019-02-01 [facility] [id number] Common 16:00:00 16:00:[address] [facility] 2018-11-07 2018-11-07 [facility] [id number] Common 16:00:00 16:00:[address] [facility] 2018-10-11 2018-10-11 [facility] [id number] Common 09:29:00 09:29:00 t [facility] [address] [facility] 2018-10-04 2018-10-04 [facility] [id number] Common 16:20:00 16:20:00 t [facility] [address] [facility] 2018-10-02 2018-10-02 [facility] [id number] Common 14:20:00 14:20:00 t [facility] [address] [facility] 2018-08-07 2018-08-07 [facility] [id number] Common 13:15:00 13:15:00 t Specialty/U Sp jaquan Specialty rology - [facility] 2018-05-30 2018-05-30 [facility] [id number] Common 13:00:00 13:00:00 t [facility] [address] [facility] 2018-05-16 2018-05-16 [facility] [id number] Common 14:15:00 14:15:00 t Specialty/U Sp jaquan Specialty rology - [facility] 2018-05-16 2018-05-16 [facility] [id number] Common 09:03:00 09:03:00 t Specialty/U Sp jaquan Specialty rology - [facility] 2018-03-28 2018-03-28 [facility] [id number] Common 16:23:00 16:23:00 t [facility] [address] [facility] 2018-03-24 2018-03-24 [facility] [id number] Common 15:44:00 15:44:[address] [facility] 2018-02-02 2018-02-02 [facility] [id number] Common 15:30:00 15:30:[address] [facility] 2017-11-04 2017-11-04 [facility] [id number] Common 11:44:00 11:44:[address] [facility] 2017-10-28 2017-10-28 [facility] [id number] Common 14:44:00 14:44:[address] [facility] 2017-10-27 2017-10-27 [facility] [id number] Common 16:00:00 16:00:[address] [facility] 2017-09-23 2017-09-23 [facility] [id number] Common 10:32:00 10:32:[address] [facility] 2017-09-22 2017-09-22 [facility] [id number] Common 14:32:00 14:32:[address] [facility] 2017-09-19 2017-09-19 [facility] [id number] Common 15:00:00 15:00:[address] [facility] 2017-09-13 2017-09-13 [facility] [id number] Common 10:10:00 10:10:[address] [facility] 2017-09-08 2017-09-08 [facility] [id number] Common 13:25:00 13:25:[address] [facility] 2017-09-05 2017-09-05 [facility] [id number] Common 11:15:00 11:15:[address] [facility] Results Test Description Test Time Test Comments Results Result Comments Source UA RFLX MICROSCOPIC CULTURE 2021-10-11 21:29:00 Test Item Value Reference Range Interpretation Comme nts UA COLOR (test code = COLU) DARK YELLOW YELLOW UA APPEARANCE (test code = CLEAR CLEAR APPU) UA GLUCOSE DIPSTICK (test NEGATIVE mg/dL NEGATIVE code = DGLUU) UA BILIRUBIN DIPSTICK (test 1+ NEGATIVE A Not able to rule out false code = BILU) positive; No co nfirmatory test. UA KETONE DIPSTICK (test NEGATIVE mg/dL NEGATIVE code = KETU) UA SPECIFIC GRAVITY (test 1.010 1.001-1.035 N code = SGU) UA BLOOD DIPSTICK (test TRACE NEGATIVE A code = MELANIE) UA PH DIPSTICK (test code = 6.0 5.5-7.0 N VENESSA) UA PROTEIN DIPSTICK (test NEGATIVE mg/dL NEGATIVE code = PROU) UA UROBILINOGEN DIPSTICK 1.0 mg/dL NORMAL (test code = URO) UA NITRITE DIPSTICK (test POSITIVE NEGATIVE A code = TOM) UA LEUKOCYTE ESTERASE 25 NEGATIVE A DIPSTICK (test code = LEUU) UA COMMENT (test code = VOLUME 10-12 ML COMU) URINE SPECIMEN DESCRIPTION Clean Catch (test code = UASPEC) UA WBC (test code = WBCU) < 10 #/hpf <10 UA SQUAMOUS CELLS (test 0 - 20 #/lpf <100 code = SQU) UA CULTURE NEEDED? (test Criteria not met code = UACULT) Indication for culture: Flank PainURINE SOURCE: Clean CatchUA MICROSCOPIC 2021-10-11 21:29:00 Test Item Value Reference Range Interpretation Comments UA RBC (test code = RBCU) 2-5 #/hpf NONE SEEN A UA BACTERIA (test code = BACU) FEW #/hpf NONE SEEN A Indication for culture: Flank PainURINE SOURCE: Clean Catch
[2021-11-26] MEDS ORDERED: MEPERIDINE HCL 50 MG/ML ONE (15:55)
[2021-11-26] MEDS ORDERED: MEPERIDINE HCL 25 MG/ML SYR ONE (15:55)
[2021-11-26] MEDS ORDERED: PROMETHAZINE INJ 25 MG/ML AMP ONE (15:55)
[2021-11-26] MEDS ORDERED: METOCLOPRAMIDE 10 MG/2mL INJ ONE (17:45)
[2021-11-26] MEDS ORDERED: DIPHENHYDRAMINE 50 MG/ML VIAL ONE (17:45)
[2021-11-26] MEDS ORDERED: KETOROLAC 30 MG/ML INJ ONE (17:46)
[2021-11-26 18:18] LABS: Absolute Lymphocytes (CBC) 1.3 K/uL (0.7-4.9); Hematocrit 38.9 % (36.0-45.0); Lymphocytes % 21.7 % (15.3-44.8); MCV 87.1 fL (80-100); RBC Red Blood Cell Count 4.47 M/uL (3.86-4.86)
[2021-11-26 18:29] LABS: MPV 8.3 fL (7.6-11.3)
[2021-11-26 18:32] LABS: Potassium 4.1 mmol/L (3.5-5.1)
--- NOTE | 2021-11-26 19:01 | RAD REPORT ---
EXAM DESCRIPTION: CT - Head Brain Wo Cont - 11/26/2021 6:50 pm CLINICAL HISTORY: Migraine Headache, drowsiness COMPARISON: Head Brain Wo Cont dated 02/24/2019 TECHNIQUE: All CT scans are performed using dose optimization technique as appropriate and may inclu de automated exposure control or mA/KV adjustment according to patient size. FINDINGS: No intracranial hemorrhage, hydrocephalus or extra-axial fluid collection.No areas of brai n edema or evidence of midline shift. The paranasal sinuses and mastoids are clear. The calvarium is intact. IMPRESSION: No acute intracranial abnormality.
--- NOTE | 2021-11-26 20:45 | EDPHYS ---
Physician Documentation [facility] Name: Btey Ball Age: 76 yrs Sex: Female : 1945 Arrival Date: 11/26/2021 Time: 14:45 Bed 19 Private MD: ED Physician Jocelyne Lopez HPI: 11/26 15:09 This 76 yrs old Female presents to ER via EMS with complaints of migraine. ms3 15:09 The patient complains of pain to the top of head, forehead, right ear, right advent and ms3 left advent. The patient describes the headache as pounding, throbbing. Onset: The symptoms/episode began/occurred 4 day(s) ago. Associated signs and symptoms: The patient has no apparent associated signs or symptoms. Severity of symptoms: At its worst the pain was severe, in the emergency department the pain is unchanged, a " 9" out of "10". Headache History: The patient has had previous headaches and this one is similar to previous episodes. The symptoms are alleviated by nothing. the symptoms are aggravated by lights, noise. Historical: - Allergies: 14:48 Fentanyl; ap3 14:48 Morphine; ap3 14:48 Steroids (migraines); ap3 - PMHx: 14:48 "heart valve leaks"; Chronic pain; Gastritis/Esophageal; Migraines; pulmonary fibrosis; ap3 Stomach Ulcers; - Immunization history:: Client reports receiving the 2nd dose of the Covid vaccine. - Social history:: Smoking status: Patient denies any tobacco usage or history of. Patient uses alcohol, occasionally. ROS: 15:09 Constitutional: Negative for fever, and chills. Neck: Negative for injury, pain, and ms3 swelling, Cardiovascular: Negative for chest pain, and palpitations. Respiratory: Negative for shortness of breath, cough, wheezing, and pleuritic chest pain, Abdomen/GI: Negative for abdominal pain, nausea, vomiting, diarrhea, and constipation, MS/Extremity: Negative for injury and deformity, Skin: Negative for injury, rash, and discoloration. 15:09 Neuro: Positive for headache. 15:09 All other systems are negative. Exam: 15:09 Constitutional: This is a well developed, well nourished patient who is awake, alert, ms3 and in no acute distress. Head/Face: Normocephalic, atraumatic. ENT: Nares patent. No nasal discharge, no septal abnormalities noted. Tympanic membranes are normal and external auditory canals are clear. Oropharynx with no redness, swelling, or masses, exudates, or evidence of obstruction, uvula midline. Mucous membranes moist. Neck: Trachea midline, no cervical lymphadenopathy. Supple, full range of motion without nuchal rigidity, or vertebral point tenderness. No Meningismus. Chest/axilla: Normal chest wall appearance and motion. Nontender with no deformity. Cardiovascular: Regular rate and rhythm with a normal S1 and S2. No gallops, murmurs, or rubs. Normal PMI, no JVD. No pulse deficits. Respiratory: Lungs have equal breath sounds bilaterally, clear to auscultation and percussion. No rales, rhonchi or wheezes noted. No increased work of breathing, no retractions or nasal flaring. Abdomen/GI: Soft, non-tender, with normal bowel sounds. No distension or tympany. No guarding or rebound. No evidence of tenderness throughout. Skin: Warm, dry with normal turgor. Normal color with no rashes, no lesions, and no evidence of cellulitis. MS/ Extremity: Pulses equal, no cyanosis. Neurovascular intact. Full, normal range of motion. Neuro: Awake and alert, GCS 15, oriented to person, place, time, and situation. Cranial nerves II-XII grossly intact. Motor strength 5/5 in all extremities. Sensory grossly intact. Cerebellar exam normal. Normal gait. Psych: Awake, alert, with orientation to person, place and time. Behavior, mood, and affect are within normal limits. Vital Signs: 14:45 BP 187 / ???; Pulse 58; Resp 17; Temp 97.6; Pulse Ox 98% ; Weight 84.82 kg; Height 5 ap3 ft. 5 in. (165.10 cm); Pain 9/10; 18:04 BP 134 / 65; Pulse 52; Pulse Ox 99% on R/A; ap3 19:17 BP 128 / 63; Pulse 51; Resp 17 S; Pulse Ox 100% on R/A; lg3 20:56 BP 124 / 66; Pulse 54; Resp 16 S; Pulse Ox 99% on R/A; lg3 14:45 Body Mass Index 31.12 (84.82 kg, 165.10 cm) ap3 MDM: 15:06 Patient medically screened. ms3 15:09 Differential diagnosis: cluster headache, migraine, tension headache. ms3 17:13 ED course: Re-evaluation of patient and patient states her headache is still present. ms3 Patient states the Demerol and Phenergan only work if given IV. Discussed with patient will give Reglan, Benadryl, and Toradol.. 20:44 ED course: CT scan is negative and patient is ambulatory with normal vital signs. We sp3 will discharge patient home at this time. Neurological exam continues to be stable and normal.. 22:33 Data reviewed: vital signs, nurses notes, radiologic studies, CT scan. Transition of ms3 care: After a detail discussion of the patient's case, care is transferred to Jocelyne Lopez MD. 11/26 17:36 Order name: CBC with Diff; Complete Time: 18:52 ms3 11/26 17:36 Order name: BMP; Complete Time: 18:52 ms3 11/26 17:36 Order name: CT Head Brain wo Cont ms3 11/26 17:42 Order name: Head Brain Wo Cont; Complete Time: 20:10 EDMS Administered Medications: 15:09 CANCELLED (Physician Discretion): Demerol 100 mg IM once; RASS on ADMIN: Combtv4, Very ms3 Agttd3, Agttd2, Rstlss1, AlertClm0, Drwsy-1, Lt Sdtn-2, Mod Sdtn-3, Dp Sdtn-4, UnArsble-5 15:57 Drug: Phenergan (promethazine) 25 mg Route: IM; Site: left gluteus; ap3 17:40 Follow up: Response: No adverse reaction ap3 15:57 Drug: Demerol (meperidine) 75 mg Route: IM; Site: left gluteus; ap3 17:39 Follow up: Response: Pain is unchanged, physician notified ap3 17:52 Drug: Benadryl (diphenhydrAMINE) 25 mg Route: IVP; Site: right antecubital; ap3 19:20 Follow up: Response: No adverse reaction lg3 17:52 Drug: Reglan (metoCLOPramide) 10 mg Route: IVP; Site: right antecubital; ap3 19:21 Follow up: Response: No adverse reaction lg3 17:53 Drug: Ketorolac 15 mg Route: IVP; Site: right antecubital; ap3 19:20 Follow up: Response: No adverse reaction lg3 Disposition Summary: 11/26/21 20:45 Discharge Ordered Location: Home sp3 Condition: Stable sp3 Diagnosis - Migraine without aura, intractable sp3 Followup: ms3 - With: Private Physician - When: 2 - 3 days - Reason: Recheck today's complaints Discharge Instructions: - Discharge Summary Sheet ms3 - Migraine Headache, [id number] ms3 Forms: - Medication Reconciliation Form sp3 - Thank You Letter sp3 - Antibiotic Education sp3 - Prescription Opioid Use sp3 Signatures: Dispatcher [employer] Kandis Chavis RN RN ap3 Jorge Smart, DO ms3 Jocelyne Lopez MD MD sp3 Poppy Gan RN lg3 Corrections: (The following items were deleted from the chart) 15:09 15:08 Demerol 100 mg IM once; RASS on ADMIN: Combtv4, Very Agttd3, Agttd2, Rstlss1, ms3 AlertClm0, Drwsy-1, Lt Sdtn-2, Mod Sdtn-3, Dp Sdtn-4, UnArsble-5 ordered. ms3
--- NOTE | 2021-11-26 20:45 | ER ---
Nurse's Notes [facility] Name: Bety Ball Age: 76 yrs Sex: Female : 1945 Arrival Date: 11/26/2021 Time: 14:45 Bed 19 Private MD: Diagnosis: Migraine without aura, intractable Presentation: 11/26 14:45 Chief complaint: Patient states: she has had a migraine for 4 days now that her typical ap3 migraine medication is not helping. she has rx for for zomig and immatrex, but neither has helped. patient states she has a hx of migraines, and usually demoral is the only thing that helps. Coronavirus screen: At this time, the client does not indicate any symptoms associated with coronavirus-19. Ebola Screen: No symptoms or risks identified at this time. Initial Sepsis Screen: Does the patient meet any 2 criteria? No. Patient's initial sepsis screen is negative. Does the patient have a suspected source of infection? No. Patient's initial sepsis screen is negative. Risk Assessment: Do you want to hurt yourself or someone else? Patient reports no desire to harm self or others. Onset of symptoms was November 23, 2021. 14:45 Method Of Arrival: EMS: [facility] ap3 14:45 Acuity: TAY 3 ap3 14:50 Care prior to arrival: IV initiated. 18 GA, in the right antecubital area. ap3 Triage Assessment: 14:48 General: Appears uncomfortable, Behavior is calm, cooperative, appropriate for age. ap3 Pain: Complains of pain in face and scalp Pain currently is 9 out of 10 on a pain scale. Pain began gradually, 4 days ago. Neuro: Level of Consciousness is awake, alert, obeys commands, Oriented to person, place, time, situation, Appropriate for age Gait is steady, Speech is normal. Cardiovascular: Patient's skin is warm and dry. Respiratory: Airway is patent Respiratory effort is even, unlabored, Respiratory pattern is regular, symmetrical. Historical: - Allergies: 14:48 Fentanyl; ap3 14:48 Morphine; ap3 14:48 Steroids (migraines); ap3 - PMHx: 14:48 "heart valve leaks"; Chronic pain; Gastritis/Esophageal; Migraines; pulmonary fibrosis; ap3 Stomach Ulcers; - Immunization history:: Client reports receiving the 2nd dose of the Covid vaccine. - Social history:: Smoking status: Patient denies any tobacco usage or history of. Patient uses alcohol, occasionally. Screenin:49 Abuse screen: Denies threats or abuse. Nutritional screening: No deficits noted. ap3 Tuberculosis screening: No symptoms or risk factors identified. Fall Risk None identified. Assessment: 19:17 General: Appears in no apparent distress. comfortable, Behavior is calm, cooperative. lg3 Pain: Complains of pain in head. Neuro: No deficits noted. Level of Consciousness is awake, alert, obeys commands, Oriented to person, place, time, situation. Cardiovascular: No deficits noted. Denies chest pain, shortness of breath, Capillary refill < 3 seconds Clubbing of nail beds is absent JVD is absent Patient's skin is warm and dry. Respiratory: No deficits noted. Airway is patent Trachea midline Respiratory effort is even, unlabored, Respiratory pattern is regular, symmetrical. GI: No deficits noted. No signs and/or symptoms were reported involving the gastrointestinal system. Abdomen is round non-distended. : No deficits noted. No signs and/or symptoms were reported regarding the genitourinary system. EENT: No deficits noted. No signs and/or symptoms were reported regarding the EENT system. Derm: No deficits noted. No signs and/or symptoms reported regarding the dermatologic system. Skin is intact, is healthy with good turgor, Skin is dry, Skin temperature is warm. Musculoskeletal: No deficits noted. No signs and/or symptoms reported regarding the musculoskeletal system. Circulation, motion, and sensation intact. Range of motion: intact in all extremities. 20:21 Reassessment: Patient appears in no apparent distress at this time. pt quietly resting lg3 at this time. 20:56 Reassessment: Patient appears in no apparent distress at this time. No changes from lg3 previously documented assessment. Patient and/or family updated on plan of care and expected duration. Pain level reassessed. Patient is alert, oriented x 3, equal unlabored respirations, skin warm/dry/pink. Patient states feeling better. Vital Signs: 14:45 BP 187 / ???; Pulse 58; Resp 17; Temp 97.6; Pulse Ox 98% ; Weight 84.82 kg; Height 5 ap3 ft. 5 in. (165.10 cm); Pain 9/10; 18:04 BP 134 / 65; Pulse 52; Pulse Ox 99% on R/A; ap3 19:17 BP 128 / 63; Pulse 51; Resp 17 S; Pulse Ox 100% on R/A; lg3 20:56 BP 124 / 66; Pulse 54; Resp 16 S; Pulse Ox 99% on R/A; lg3 14:45 Body Mass Index 31.12 (84.82 kg, 165.10 cm) ap3 ED Course: 14:45 Patient arrived in ED. ap3 14:48 Triage completed. ap3 14:49 Arm band placed on right wrist. ap3 14:49 Patient has correct armband on for positive identification. Pulse ox on. NIBP on. Door ap3 closed. Noise minimized. 14:50 Kandis Leigh, DUSTIN is Primary Nurse. ap3 14:52 Jorge Smart DO is Attending Physician. ms3 17:57 Initial lab(s) drawn, by me, sent to lab. ap3 18:52 Head Brain Wo Cont In Process Unspecified. EDMS 19:17 Attending Physician role handed off by Jorge Smart DO sp3 19:17 Jocelyne Lopez MD is Attending Physician. sp3 20:56 No provider procedures requiring assistance completed. IV discontinued, intact, lg3 bleeding controlled, No redness/swelling at site. Pressure dressing applied. Administered Medications: 15:09 CANCELLED (Physician Discretion): Demerol 100 mg IM once; RASS on ADMIN: Combtv4, Very ms3 Agttd3, Agttd2, Rstlss1, AlertClm0, Drwsy-1, Lt Sdtn-2, Mod Sdtn-3, Dp Sdtn-4, UnArsble-5 15:57 Drug: Phenergan (promethazine) 25 mg Route: IM; Site: left gluteus; ap3 17:40 Follow up: Response: No adverse reaction ap3 15:57 Drug: Demerol (meperidine) 75 mg Route: IM; Site: left gluteus; ap3 17:39 Follow up: Response: Pain is unchanged, physician notified ap3 17:52 Drug: Benadryl (diphenhydrAMINE) 25 mg Route: IVP; Site: right antecubital; ap3 19:20 Follow up: Response: No adverse reaction lg3 17:52 Drug: Reglan (metoCLOPramide) 10 mg Route: IVP; Site: right antecubital; ap3 19:21 Follow up: Response: No adverse reaction lg3 17:53 Drug: Ketorolac 15 mg Route: IVP; Site: right antecubital; ap3 19:20 Follow up: Response: No adverse reaction lg3 Medication: 20:57 VIS not applicable for this client. lg3 Outcome: 20:45 Discharge ordered by . sp3 20:57 Discharged to home ambulatory. lg3 20:57 Condition: stable 20:57 Discharge instructions given to patient. 20:57 Instructed on discharge instructions, follow up and referral plans. Demonstrated understanding of instructions, follow-up care. 20:57 Patient left the ED. lg3 Signatures: Dispatcher [employer] EDKandis Taylor RN RN ap3 Poppy Gan RN RN lg3 Jorge Smart DO DO ms3 Jocelyne Lopez MD MD sp3
[2021-11-26 23:30] VITALS: TEMP 97.6
[2021-11-27] VITALS: BP 124/66; O2SAT 99
== END 2021-11-26 20:57 | disposition home or self-care (01) ==
LOC: ER 14:41
DX: G43.019 Migraine without aura, intractable, without status migrainosus (principal); Z88.5 Allergy status to narcotic agent; Z88.8 Allergy status to other drugs, medicaments and biological substances
CPT/HCPCS: 85025; 80048; 36415; 70450; 96375; 96372; 96374; 99284; J2765; J2550; J1200; J2175 ×2

== ENCOUNTER 2022-02-09 10:37 | Day surgery (SDC) | payer OTHER, MEDICARE ==
[2022-02-09] MEDS ORDERED: Ringers Lactate 1,000 ML IV ONE (11:42)
[2022-02-09] MEDS: MIDAZOLAM HCL 2 MG/2 ML INJ ONE ×2 (12:05→12:51)
[2022-02-09] MEDS ORDERED: propofoL 200 MG/20 ML VIAL IV ONE ×2 (13:06→13:07)
[2022-02-09] MEDS ORDERED: LIDOCAINE 1% MPF 5 ML VIAL ONE (13:07)
--- NOTE | 2022-02-09 13:53 | ENDO RPT ---
[address], [address] EGD PROCEDURE REPORT EXAM DATE: 02/09/2022 PATIENT NAME: Bety Ball MR#: [id number] BIRTHDATE: 1945 ATTENDING: Carson Thompson DR STATUS: outpatient CISTERN ROOM OPERATOR: Angel Bhardwaj and Bibiana Charles RN INDICATIONS: The patient is a 76 yr old Female here for an EGD due to mid epigastric abdominal pain PROCEDURE PERFORMED: EGD with biopsy for H. pylori MEDICATIONS: Per Anesthesia. TOPICAL ANESTHETIC: none CONSENT: The patient understands the risks and benefits of the procedure and understands that these risks include, but are not limited to: sedation, allergic reaction, infection, perforation and/or bleeding. Alternative means of evaluation and treatment include, among others: physical exam, x-rays, and/or surgical intervention. The patient elects to proceed with this endoscopic procedure. DESCRIPTION OF PROCEDURE: During intra-op preparation period all mechanical medical equipment was checked for proper function. Hand hygiene and appropriate measures for infection prevention was taken. Procedure, possible complications, and alternatives including but not limited to the possibility of bleeding, perforation, tear, infection, sepsis, need for surgery, need for blood transfusion, and anesthesia related complications were explained to the patient. After the risks, benefits and alternatives of the procedure were thoroughly explained, Informed consent was verified, confirmed and timeout was successfully executed by the treatment team. The patient was placed in the left lateral position. The patient was anesthetized with topical anesthesia. Through the anesthetized oropharyngeal area, the scope was passed without any difficulty. The EG-[id number] ([id number]) endoscope was introduced through the mouth and advanced to the second portion of the duodenum. Retroflexed views revealed a small hiatal hernia. The gastroscope was then slowly withdrawn and removed. Mild gastritis was found in the body and the antrum of the stomach. Multiple biopsies were obtained and sent to pathology. With standard forceps, a biopsy was obtained and sent to pathology. A biopsy for H. pylori was taken. Mild gastritis was found in the gastroesophageal junction. mild inflammation @ Z-line With standard forceps, a biopsy was obtained and sent to pathology. A biopsy for H. pylori was taken. A sessile polyp was found in the cardia. likely benign edematous fleshy Polyp was snared, then cauterized with monopolar cautery. Polyp was retrieved and sent to pathology. LA Class A esophagitis was found in the upper esophagus. @ 15cm, mild esophagitis- biopsied With standard forceps, a biopsy was obtained and sent to pathology. ADVERSE EVENTS: There were no complications. IMPRESSIONS: 1. Mild gastritis was found in the body and the antrum of the stomach 2. Mild gastritis was found in the gastroesophageal junction 3. Hiatus hernia RECOMMENDATIONS: 1. follow-up of helicobacter pylori status, treat if indicated 2. acid suppression therapy 3. anti-reflux regimen 4. await biopsy results 5. follow-up: office 2 week(s) REPEAT EXAM: Carson Thompson DR eSigned: Carson Thompson DR 02/09/2022 1:53 PM cc: CPT CODES: ICD9 CODES: PATIENT NAME: Bety Ball MR#: [id number]
--- NOTE | 2022-02-09 13:55 | ENDO RPT ---
[address], [address] COLONOSCOPY PROCEDURE REPORT EXAM DATE: 02/09/2022 PATIENT NAME: Bety Ball MR #: [id number] BIRTHDATE: 1945 ATTENDING: Carosn Thompson DR STATUS: outpatient ANIMAL EVISCERATOR: Angel Bhardwaj and Bibiana Charles RN INDICATIONS: The patient is a 76 yr old Female here for a colonoscopy due to colon cancer screening PROCEDURE PERFORMED: Colonoscopy with biopsy MEDICATIONS: Per Anesthesia. ESTIMATED BLOOD LOSS: None CONSENT: The patient understands the risks and benefits of the procedure and understands that these risks include, but are not limited to: sedation, allergic reaction, infection, perforation and/or bleeding. Alternative means of evaluation and treatment include, among others: physical exam, x-rays, and/or surgical intervention. The patient elects to proceed with this endoscopic procedure. DESCRIPTION OF PROCEDURE: During intra-op preparation period all mechanical medical equipment was checked for proper function. Hand hygiene and appropriate measures for infection prevention was taken. Procedure, possible complications, alternatives including, but not limited to possibility of bleeding, perforation, tear, infection, sepsis, need for surgery, need for blood transfusion, were explained to the patient. After the risks, benefits and alternatives of the procedure were thoroughly explained, Informed consent was verified, confirmed and timeout was successfully executed by the treatment team. The patient was placed in the left lateral position. A digital rectal exam was performed and revealed internal hemorrhoids. After appropriate level of anesthesia, the scope was passed. The EC-[id number] ([id number]) endoscope was introduced through the anus and advanced to the cecum, which was identified by both the appendix and ileocecal valve. The quality of the prep was fair. The instrument was then slowly withdrawn as the colon was fully examined. Scope withdrawal time was 10 minutes. COLON FINDINGS: Mild diverticulosis was noted in the sigmoid colon. No bleeding was noted from the diverticulosis. Moderate sized internal hemorrhoids were found. The colon mucosa was otherwise normal. A biopsy was performed. Retroflexed views revealed no abnormalities. The scope was then completely withdrawn from the patient and the procedure terminated. ADVERSE EVENTS: There were no complications. IMPRESSIONS: 1. Mild diverticulosis was noted in the sigmoid colon 2. Moderate sized internal hemorrhoids 3. The colon mucosa was otherwise normal; biopsy was performed RECOMMENDATIONS: 1. avoid NSAIDS 2. await biopsy results 3. fiber rich diet 4. follow-up: office 2 week(s) 5. Monitor for any evidence of rectal bleeding. 6. yearly hemoquant 7. hemorrhoidal hygiene RECALL: Return in 5 year(s) for Colonoscopy, pending biopsy results. Carson Thompson DR eSigned: Carson Thompson DR 02/09/2022 1:55 PM cc: CPT CODES: ICD9 CODES: PATIENT NAME: Bety Ball MR#: [id number]
--- NOTE | 2022-02-09 13:55 | EKG ---
Test Date: 2022-02-09 Test Time: 10:08:06 Health Information Technician: CELSO MEASUREMENT RESULTS: Intervals: Rate: 52 ID: [id number] QRSD: 92 QT: 440 QTc: 409 Stewart: P: 60 ID: [id number] QRS: -10 T: 95 INTERPRETIVE STATEMENTS: Sinus bradycardia Nonspecific T wave abnormality Abnormal ECG Compared to ECG 05/21/2021 10:58:58 T-wave abnormality now present Electronically Signed On 02-09-22 13:54:48 CDT by Riaz Gandhi
[2022-02-09 14:38] VITALS: O2SAT 100
[2022-02-09 14:45] VITALS: BP 155/65; TEMP 96.8
== END 2022-02-09 14:44 | disposition home or self-care (01) ==
LOC: OR 10:37
PROVIDERS: ATTEND Surgery
PROC: 0DB78ZX Excision of Stomach, Pylorus, Via Natural or Artificial Opening Endoscopic, Diagnostic (ICD-10-PCS; 2022-02-09)
PROC: 0DB68ZX Excision of Stomach, Via Natural or Artificial Opening Endoscopic, Diagnostic (ICD-10-PCS; 2022-02-09)
PROC: 0DB18ZX Excision of Upper Esophagus, Via Natural or Artificial Opening Endoscopic, Diagnostic (ICD-10-PCS; 2022-02-09)
PROC: 0DB48ZX Excision of Esophagogastric Junction, Via Natural or Artificial Opening Endoscopic, Diagnostic (ICD-10-PCS; 2022-02-09)
PROC: 0DBN8ZX Excision of Sigmoid Colon, Via Natural or Artificial Opening Endoscopic, Diagnostic (ICD-10-PCS; 2022-02-09)
PROC: 0DB68ZX Excision of Stomach, Via Natural or Artificial Opening Endoscopic, Diagnostic (ICD-10-PCS; principal; 2022-02-09 14:00)
PROC: 0DB98ZX Excision of Duodenum, Via Natural or Artificial Opening Endoscopic, Diagnostic (ICD-10-PCS; 2022-02-09 14:00)
DX: K31.7 Polyp of stomach and duodenum (principal); R10.13 Epigastric pain; K29.50 Unspecified chronic gastritis without bleeding; K44.9 Diaphragmatic hernia without obstruction or gangrene; K57.30 Diverticulosis of large intestine without perforation or abscess without bleeding; K64.8 Other hemorrhoids
CPT/HCPCS: 93005; 88312 ×2; 88305; 43251; 43239; 45380; J2704 ×2; J2001; J2250; J7120

== ENCOUNTER 2022-09-29 11:27 | Day surgery (SDC) | payer MEDICARE, OTHER ==
[2022-09-29] MEDS ORDERED: Ringers Lactate 1,000 ML IV ONE (11:52)
[2022-09-29] MEDS ORDERED: BUPIVACAINE 0.5% PF 10 ML VIAL ONE (12:46)
[2022-09-29] MEDS ORDERED: propofoL 200 MG/20 ML VIAL IV ONE (13:09)
[2022-09-29] MEDS ORDERED: LIDOCAINE 2% MPF 5 ML VIAL ONE (13:10)
[2022-09-29] MEDS ORDERED: MIDAZOLAM HCL 2 MG/2 ML INJ ONE (13:10)
[2022-09-29] MEDS ORDERED: LIDOCAINE 1% MPF 5 ML VIAL ONE (13:36)
--- NOTE | 2022-09-29 13:50 | RAD REPORT ---
EXAM DESCRIPTION: RAD - Fluoroscopy <1 Hour - 09/29/2022 1:43 pm CLINICAL HISTORY: STELLATE GANGLION BLOCK COMPARISON: None available. FINDINGS: A single image was sent to PACS, documenting needle positions during an image guided gerardo ate ganglion pain block procedure. No radiologist was available for the procedure, nor will any image interpretation he provided. Please refer to the procedural report for additional details. Fluoroscopy time: 0.5 Minutes. IMPRESSION: Documentation of fluoroscopy utilization as above.
[2022-09-29] MEDS ORDERED: HYDROCODONE/APAP 10/325 TAB ONE (14:17)
[2022-09-29 14:18] VITALS: BP 132/58; TEMP 97.1; O2SAT 98
== END 2022-09-29 14:26 | disposition home or self-care (01) ==
LOC: OR 11:27
PROVIDERS: ATTEND Pain Medicine Interventional Pain Medicine
PROC: 3E0T33Z Introduction of Anti-inflammatory into Peripheral Nerves and Plexi, Percutaneous Approach (ICD-10-PCS; principal; 2022-09-29 12:45)
DX: M53.3 Sacrococcygeal disorders, not elsewhere classified (principal); M46.1 Sacroiliitis, not elsewhere classified; M60.9 Myositis, unspecified; M54.16 Radiculopathy, lumbar region; G89.4 Chronic pain syndrome; Z79.899 Other long term (current) drug therapy
CPT/HCPCS: 64450; J2704; J2001 ×2; J2250; J7120; Q9967; 76000

== ENCOUNTER → 2023-04-14 | Emergency (ER) | payer MEDICARE ==
--- NOTE | 2023-04-14 19:18 | RAD REPORT ---
EXAM DESCRIPTION: US - Extremity Venous Uni Ltd - 04/14/2023 7:08 pm CLINICAL HISTORY: Swelling COMPARISON: None. TECHNIQUE: Real-time sonographic evaluation of the left lower extremity deep venous system was perfo rmed. FINDINGS: Normal compressibility, flow augmentation, phasic flow and spontaneous flow is identified in the left lower extremity deep venous system. No intraluminal filling defects seen. IMPRESSION: No DVT in the left lower extremity.
--- NOTE | 2023-04-14 19:34 | ER ---
Nurse's Notes [facility] Name: Madelaine Ball Age: 77 yrs Sex: Female : 1945 Arrival Date: 04/14/2023 Time: 17:43 Bed 17 Private MD: Diagnosis: Pain in left thigh Presentation: 04/14 17:56 Chief complaint: Patient states: DIAGNOSED WITH DVT TO THE LEFT THIGH YESTERDAY AND WAS cm10 TOLD TO TAKE ASPIRIN 325MG DAILY. PT STATES THAT SHE IS CONCERNED BECAUSE THE PAIN HAS NOW TRAVELED UP HER THIGH. Coronavirus screen: Vaccine status: Patient reports receiving the 2nd dose of the covid vaccine. Client denies travel out of the [place] in the last 14 days. Ebola Screen: Patient denies travel to an Ebola-affected area in the 21 days before illness onset. No symptoms or risks identified at this time. Initial Sepsis Screen: Does the patient meet any 2 criteria? No. Patient's initial sepsis screen is negative. Does the patient have a suspected source of infection? No. Patient's initial sepsis screen is negative. Risk Assessment: Do you want to hurt yourself or someone else? Patient reports no desire to harm self or others. Onset of symptoms was April 14, 2023. 17:56 Method Of Arrival: Ambulatory cm10 17:56 Acuity: TAY 3 cm10 Historical: - Allergies: 17:58 Fentanyl; cm10 17:58 Morphine; cm10 17:58 Steroids (migraines); cm10 - PMHx: 17:58 Chronic pain; Gastritis/Esophageal; Migraines; pulmonary fibrosis; Stomach Ulcers; cm10 - Immunization history:: Adult Immunizations unknown. - Social history:: Smoking status: Patient denies any tobacco usage or history of. Screenin:22 [facility] ED Fall Risk Assessment (Adult) History of falling in the last 3 months, km8 including since admission No falls in past 3 months (0 pts) Confusion or Disorientation No (0 pts) Intoxicated or Sedated No (0 pts) Impaired Gait No (0 pts) Mobility Assist Device Used No (0 pt) Altered Elimination No (0 pt) Score/Fall Risk Level 0 - 2 = Low Risk Oriented to surroundings, Maintained a safe environment, Educated pt \T\ family on fall prevention, incl call for assistance when getting out of bed, Assessed \T\ reinforced patient's understanding of fall precautions. Abuse screen: Denies threats or abuse. Denies injuries from another. Nutritional screening: No deficits noted. Tuberculosis screening: No symptoms or risk factors identified. Assessment: 19:22 General: Appears in no apparent distress. comfortable, Behavior is calm, cooperative, km8 appropriate for age. Pain: Complains of pain in left quadriceps Pain currently is 3 out of 10 on a pain scale. Neuro: Palmer Agitation-Sedation Scale (RASS): 0 - Alert and Calm Level of Consciousness is awake, alert, obeys commands, Oriented to person, place, time, situation. Cardiovascular: Denies chest pain, shortness of breath, Capillary refill < 3 seconds Patient's skin is warm and dry. Respiratory: Airway is patent Respiratory effort is even, unlabored, Respiratory pattern is regular, symmetrical. GI: No signs and/or symptoms were reported involving the gastrointestinal system. : No signs and/or symptoms were reported regarding the genitourinary system. EENT: No signs and/or symptoms were reported regarding the EENT system. Derm: No signs and/or symptoms reported regarding the dermatologic system. Skin is intact, Skin is dry, Skin is pink, warm \T\ dry. normal, Skin temperature is warm. Musculoskeletal: Range of motion: intact in all extremities, Reports pain in left quadriceps. Vital Signs: 17:56 BP 156 / 70; Pulse 81; Resp 18; Temp 98.2(O); Pulse Ox 99% on R/A; Weight 88 kg; Height cm10 5 ft. 5 in. ; Pain 7/10; 19:30 BP 155 / 75; Pulse 58; Resp 16; Pulse Ox 100% ; Pain 3/10; km8 17:56 Body Mass Index 32.28 (88.00 kg, 165.1 cm) cm10 17:56 Pain Scale: Adult cm10 19:30 Pain Scale: Adult km8 Sariah Coma Score: 19:22 Eye Response: spontaneous(4). Motor Response: obeys commands(6). Verbal Response: km8 oriented(5). Total: 15. ED Course: 17:49 Patient arrived in ED. ae5 17:51 Ben Patel MD is Attending Physician. ec2 17:58 Triage completed. cm10 17:58 Arm band placed on Patient placed in waiting room. cm10 19:10 Extremity Venous Uni Ltd US In Process Unspecified. EDMS 19:22 Patient has correct armband on for positive identification. Pulse ox on. NIBP on. Door km8 closed. Noise minimized. Lights dimmed. Warm blanket given. 19:22 Inserted saline lock: 20 gauge in right antecubital area, using aseptic technique. km8 Blood collected. 19:22 No provider procedures requiring assistance completed. Patient maintains SpO2 km8 saturation greater than 95% on room air. 20:09 Provided Education on: d/c teaching. km8 20:09 IV discontinued, intact, bleeding controlled, No redness/swelling at site. Pressure km8 dressing applied. Administered Medications: No medications were administered Medication: 19:22 VIS not applicable for this client. km8 Outcome: 19:34 Discharge ordered by . ec2 20:09 Discharged to home ambulatory, km8 20:09 Condition: good 20:09 Discharge instructions given to patient, Instructed on discharge instructions, follow up and referral plans. Demonstrated understanding of instructions, follow-up care, 20:10 Patient left the ED. km8 Signatures: Dispatcher [employer] Corie Jeffrey, RN RN cm10 Ben Patel MD MD ec2 Jenny Sahni, DUSTIN RN km8 Charlotte Kay ae5 Corrections: (The following items were deleted from the chart) 19:38 19:23 BASIC METABOLIC PANEL+C.LAB.BRZ drawn and sent. 8 EDMS 19:44 19:23 PTT, ACTIVATED+COAG.LAB.BRZ drawn and sent. 8 EDMS 19:44 19:23 PROTIME (+INR)+COAG.LAB.BRZ drawn and sent. [facility] EDMS 19:44 19:23 CBC+H.LAB.BRZ drawn and sent. 8 EDMS
--- NOTE | 2023-04-14 19:34 | EDPHYS ---
Physician Documentation [facility] Name: Madelaine Ball Age: 77 yrs Sex: Female : 1945 Arrival Date: 04/14/2023 Time: 17:43 Bed 17 Private MD: ED Physician Ben Patel HPI: 04/14 19:28 This 77 yrs old Female presents to ER via Ambulatory with complaints of Thigh ec2 Pain. 19:28 Patient arrives today for evaluation of left leg pain. States that she was diagnosed ec2 with some type of clot, and subsequently recommended aspirin. Patient complaining of pain in the distal thigh. Denies any difficulty breathing, denies any chest pain or shortness of breath. Patient reports no redness or swelling to the area.. Historical: - Allergies: 17:58 Fentanyl; cm10 17:58 Morphine; cm10 17:58 Steroids (migraines); cm10 - PMHx: 17:58 Chronic pain; Gastritis/Esophageal; Migraines; pulmonary fibrosis; Stomach Ulcers; cm10 - Immunization history:: Adult Immunizations unknown. - Social history:: Smoking status: Patient denies any tobacco usage or history of. ROS: 19:28 Constitutional: as per hpi ec2 Exam: 19:28 Constitutional: GEN: NAD Head: atraumatic Eyes: EOMI Ears: External ears are ec2 normal. CV: regular rate LUNGS: no respiratory distress ABD: non-distended SKIN: no evidence of rashes, no erythema or warmth noted to the thigh or calf, no significant leg swelling appreciated on either lower extremity MSK: no evidence of trauma NEURO: moves all extremities equally Vital Signs: 17:56 BP 156 / 70; Pulse 81; Resp 18; Temp 98.2(O); Pulse Ox 99% on R/A; Weight 88 kg; Height cm10 5 ft. 5 in. ; Pain 7/10; 19:30 BP 155 / 75; Pulse 58; Resp 16; Pulse Ox 100% ; Pain 3/10; km8 17:56 Body Mass Index 32.28 (88.00 kg, 165.1 cm) cm10 17:56 Pain Scale: Adult cm10 19:30 Pain Scale: Adult km8 Sariah Coma Score: 19:22 Eye Response: spontaneous(4). Motor Response: obeys commands(6). Verbal Response: km8 oriented(5). Total: 15. MDM: 18:47 Patient medically screened. ec2 19:29 Data reviewed: vital signs. ED course: Patient arrives today due to concern for DVT. ec2 Examination remarkable for well-appearing nontoxic individual is otherwise in no acute distress. Will obtain lab work, ultrasound and further suspicion complaint. Currently considering DVT, nonspecific musculoskeletal pain, additionally considered cellulitis however does not appear such as this clinically.. 19:31 ED course: Initially had ordered labs however patient with negative for DVT ultrasound ec2 and do not feel labs would be management changing, will cancel. Suspect musculoskeletal pain and have her follow-up with her primary care doctor.. 04/14 18:00 Order name: Extremity Venous Uni Ltd US; Complete Time: 19:27 ec2 Administered Medications: No medications were administered Disposition Summary: 04/14/23 19:34 Discharge Ordered Notes: Location: Home ec2 Condition: Stable ec2 Diagnosis - Pain in left thigh ec2 Followup: ec2 - With: Private Physician - When: - Reason: Recheck today's complaints Discharge Instructions: - Discharge Summary Sheet ec2 - Musculoskeletal Pain ec2 Forms: - Medication Reconciliation Form ec2 - Thank You Letter ec2 - Antibiotic Education ec2 - Prescription Opioid Use ec2 - Patient Portal Instructions ec2 - Leadership Thank You Letter ec2 Signatures: Dispatcher [employer] Corie Jeffrey, DUSTIN RN cm10 Ben Patel MD MD ec2 Corrections: (The following items were deleted from the chart) 19:38 18:01 BASIC METABOLIC PANEL+C.LAB.BRZ ordered. EDMS EDMS 19:44 18:01 CBC+H.LAB.BRZ ordered. EDMS EDMS 19:44 18:01 PROTIME (+INR)+COAG.LAB.BRZ ordered. EDMS EDMS 19:44 18:01 PTT, ACTIVATED+COAG.LAB.BRZ ordered. EDMS EDMS 19:44 19:34 CBC+H.LAB.BRZ reviewed. ec2 EDMS 19:44 19:43 PROTIME (+INR)+COAG.LAB.BRZ reviewed. ec2 EDMS 19:44 19:43 PTT, ACTIVATED+COAG.LAB.BRZ reviewed. ec2 EDMS
[2023-04-14 22:44] VITALS: BP 155/75; TEMP 98.2; O2SAT 100
== END ==
LOC: ER 17:43
DX: M79.652 Pain in left thigh (principal); Z88.5 Allergy status to narcotic agent; Z88.8 Allergy status to other drugs, medicaments and biological substances
CPT/HCPCS: 93971; 99284

== ENCOUNTER → 2023-06-29 | Emergency (ER) | payer MEDICARE ==
[~2023-06-29] MED LIST: ACETAMINOPHEN 500 MG TAB ONE; KETOROLAC 30 MG/ML INJ ONE; methocarbamoL 500 MG TAB ONE
--- NOTE | 2023-06-29 13:17 | RAD REPORT ---
EXAM DESCRIPTION: RAD - Wrist Right 3 View - 06/29/2023 12:57 pm CLINICAL HISTORY: head injury COMPARISON: Abdomen Angio dated 01/13/2022 TECHNIQUE: Right wrist, 3 views. FINDINGS: No fracture is identified. There is no dislocation or periosteal reaction noted. Moderate radiocarpal degenerative changes with osseous remodeling. No foreign body or other soft tissue abnormality. IMPRESSION: Moderate degenerative changes. No acute osseous abnormality.
--- NOTE | 2023-06-29 13:25 | RAD REPORT ---
EXAM DESCRIPTION: CT - CTHCSPWOC - 06/29/2023 12:52 pm CLINICAL HISTORY: fall COMPARISON: No comparisons TECHNIQUE: Axial thin cut noncontrast CT images of the head were obtained. Axial thin cut noncontrast CT images of the cervical spine were obtained. Multiplanar reformatted images were generated and reviewed. All CT scans are performed using dose optimization technique as appropriate and may include automated exposure control or mA/KV adjustment according to patient size. FINDINGS: CT HEAD WITHOUT CONTRAST: No acute hemorrhage, hydrocephalus or extra-axial collection is identified.No areas of brain edema or midline shift. The paranasal sinuses and mastoids are clear.The calvarium is intact. CT CERVICAL SPINE WITHOUT CONTRAST: No fracture or subluxation.Sequelae of anterior plating at C4-C5. At least moderate degenerative mills ges most pronounced on the left, at C3-4 level, with ankylosis across the left C4-5 facet articulatio n.No prevertebral soft tissues swelling is identified. IMPRESSION: No acute traumatic intracranial or cervical spine findings. Degenerative cervical spine changes.
--- NOTE | 2023-06-29 13:35 | EDPHYS ---
Physician Documentation [facility] Name: Bety Ball Age: 78 yrs Sex: Female : 1945 Arrival Date: 06/29/2023 Time: 11:48 Bed 12 Private MD: ED Physician Ben Patel HPI: 06/28 12:31 This 78 yrs old Female presents to ER via Ambulatory with complaints of Hand ec2 Injury, Fall Injury. 12:31 Patient arrives today for evaluation of right wrist injury as well as head injury. ec2 States that she was walking subsequently fell at home. No LOC, not on blood thinners. Patient reports chronic pain, on Vicodin for neuropathy. Patient asked for pain medications.. Historical: - Allergies: 12:14 Fentanyl; ll1 12:14 Morphine; ll1 12:14 Steroids (migraines); ll1 12:20 Afrin; ll1 - PMHx: 12:14 Chronic pain; Migraines; pulmonary fibrosis; Stomach Ulcers; Gastritis/Esophageal; ll1 12:20 heart valve leaks; ll1 - Immunization history:: Adult Immunizations up to date. - Social history:: Smoking status: Patient denies any tobacco usage or history of. ROS: 12:31 Constitutional: as per hpi ec2 Exam: 12:31 Constitutional: GEN: NAD Head: atraumatic Eyes: EOMI Ears: External ears are ec2 normal. CV: regular rate LUNGS: no respiratory distress ABD: non-distended SKIN: no evidence of rashes MSK: no evidence of trauma, minimal right wrist TTP, no deformities. NEURO: moves all extremities equally Vital Signs: 12:21 BP 154 / 92; Pulse 70; Resp 16; Temp 97.5; Pulse Ox 100% ; Pain 9/10; ll1 13:00 BP 148 / 89; Pulse 88; Resp 15; Pulse Ox 99% ; ko1 13:47 BP 142 / 90; Pulse 74; Resp 15; Pulse Ox 100% ; ko1 12:21 Pain Scale: Adult ll1 MDM: 12:31 Data reviewed: vital signs. ED course: Patient arrives today for head strike and right ec2 wrist injury. Examination remarkable well-appearing nontoxic dividual is otherwise in no acute distress but will obtain CT scan of the head and C-spine as well as right wrist x-ray. Evaluate for intracranial brain bleed, C-spine fracture, right wrist fracture. Will give Toradol, Robaxin as well as Tylenol for pain. Will defer any stronger medications such as opiates given the patient's history of Vicodin use as well as my lower suspicion for traumatic process.. 12:35 Patient medically screened. ec2 13:34 ED course: CT scan of the head and C-spine without traumatic injuries, wrist x-ray ec2 without bony fracture, shows arthritis. Will discharge home. Return precautions given. . 03 12:29 Order name: CT Head C Spine; Complete Time: 13:33 ec2 06/28 12:29 Order name: Wrist Right 3 View XRAY; Complete Time: 13:33 ec2 Administered Medications: 13:06 Drug: Ketorolac IM 30 mg IM once Route: IM; Site: right deltoid; ko1 13:32 Follow up: Response: No adverse reaction ko1 13:06 Drug: Acetaminophen PO 1000 mg PO once Route: PO; ko1 13:32 Follow up: Response: No adverse reaction ko1 13:06 Drug: Methocarbamol PO 500 mg PO once Route: PO; ko1 13:32 Follow up: Response: No adverse reaction ko1 Disposition Summary: 06/29/23 13:34 Discharge Ordered Notes: Location: Home ec2 Condition: Stable ec2 Diagnosis - Sprain of unspecified part of right wrist and hand ec2 - Headache ec2 Followup: ec2 - With: Private Physician - When: - Reason: Re-evaluation by your physician Discharge Instructions: - Discharge Summary Sheet ec2 - Fall Prevention in the Home, Adult, [id number] ec2 Forms: - Medication Reconciliation Form ec2 - Thank You Letter ec2 - Antibiotic Education ec2 - Prescription Opioid Use ec2 - Patient Portal Instructions ec2 - Leadership Thank You Letter ec2 Prescriptions: - methocarbamol 500 mg Oral tablet - take 2 tablets ORAL route 4 times per day; 30 tablet; Refills: 0, Product ec2 Selection Permitted Signatures: Dispatcher [employer] Gabe Rudolph RN RN ll1 Davina Love RN RN ko1 Ben Patel MD MD ec2
--- NOTE | 2023-06-29 13:35 | ER ---
Nurse's Notes [facility] Name: Bety Ball Age: 78 yrs Sex: Female : 1945 Arrival Date: 06/29/2023 Time: 11:48 Bed 12 Private MD: Diagnosis: Sprain of unspecified part of right wrist and hand;Headache Presentation: 06/28 12:21 Chief complaint: Patient states: [place] [employer]. ll1 Forehead hit rock, no LOC. R wrist pain since. Coronavirus screen: Client denies travel out of the [place] in the last 14 days. At this time, the client does not indicate any symptoms associated with coronavirus-19. Ebola Screen: Patient denies travel to an Ebola-affected area in the 21 days before illness onset. Initial Sepsis Screen: Does the patient meet any 2 criteria? No. Patient's initial sepsis screen is negative. Does the patient have a suspected source of infection? No. Patient's initial sepsis screen is negative. Risk Assessment: Do you want to hurt yourself or someone else? Patient reports no desire to harm self or others. Onset of symptoms was June 29, 2023. 12:21 Method Of Arrival: Ambulatory ll1 12:21 Acuity: TAY 3 ll1 Triage Assessment: 12:22 General: Appears in no apparent distress. Behavior is calm, cooperative, appropriate ll1 for age. Pain: Complains of pain in right hand Pain currently is 9 out of 10 on a pain scale. Quality of pain is described as aching, throbbing. Neuro: Reports headache. Musculoskeletal: Circulation, motion, and sensation intact. Capillary refill < 3 seconds, Reports pain in R wrist. Injury Description: Bruise. Historical: - Allergies: 12:14 Fentanyl; ll1 12:14 Morphine; ll1 12:14 Steroids (migraines); ll1 12:20 Afrin; ll1 - PMHx: 12:14 Chronic pain; Migraines; pulmonary fibrosis; Stomach Ulcers; Gastritis/Esophageal; ll1 12:20 heart valve leaks; ll1 - Immunization history:: Adult Immunizations up to date. - Social history:: Smoking status: Patient denies any tobacco usage or history of. Screenin:00 [facility] ED Fall Risk Assessment (Adult) History of falling in the last 3 months, ko1 including since admission Yes- single mechanical fall (1 pt) Confusion or Disorientation No (0 pts) Intoxicated or Sedated No (0 pts) Impaired Gait No (0 pts) Mobility Assist Device Used No (0 pt) Altered Elimination No (0 pt) Score/Fall Risk Level 0 - 2 = Low Risk Oriented to surroundings, Maintained a safe environment, Educated pt \T\ family on fall prevention, incl call for assistance when getting out of bed, Assessed \T\ reinforced patient's understanding of fall precautions, Provided non-skid footwear, Hourly rounding (assess needs \T\ fall precautionary measures) done, Used ambulatory aids as needed (educated on \T\ assisted with), Used gait belt as appropriate. Abuse screen: Denies threats or abuse. Denies injuries from another. Nutritional screening:. Tuberculosis screening: No symptoms or risk factors identified. Assessment: 13:00 General: Appears uncomfortable, Behavior is appropriate for age, anxious. Pain: ko1 Complains of pain in right hand. Neuro: No deficits noted. Cardiovascular: No deficits noted. Respiratory: No deficits noted. GI: No deficits noted. : No deficits noted. EENT: No deficits noted. Derm: No deficits noted. Musculoskeletal: Reports pain in right hand. Vital Signs: 12:21 BP 154 / 92; Pulse 70; Resp 16; Temp 97.5; Pulse Ox 100% ; Pain 9/10; ll1 13:00 BP 148 / 89; Pulse 88; Resp 15; Pulse Ox 99% ; ko1 13:47 BP 142 / 90; Pulse 74; Resp 15; Pulse Ox 100% ; ko1 12:21 Pain Scale: Adult ll1 ED Course: 11:49 Patient arrived in ED. rg4 12:08 Ben Patel MD is Attending Physician. ec2 12:14 Arm band placed on. ll1 12:22 Triage completed. ll1 12:51 CT Head C Spine In Process Unspecified. EDMS 12:55 Davina Love, DUSTIN is Primary Nurse. ko1 12:58 Wrist Right 3 View XRAY In Process Unspecified. EDMS 13:00 Patient has correct armband on for positive identification. Allergy band placed. Bed in ko1 low position. Call light in reach. Side rails up X 1. Provided Education on: na. Pulse ox on. NIBP on. Door closed. Noise minimized. Warm blanket given. Ice pack to injury. 13:00 No provider procedures requiring assistance completed. Patient did not have IV access ko1 during this emergency room visit. Luis wrap to right hand. Administered Medications: 13:06 Drug: Ketorolac IM 30 mg IM once Route: IM; Site: right deltoid; ko1 13:32 Follow up: Response: No adverse reaction ko1 13:06 Drug: Acetaminophen PO 1000 mg PO once Route: PO; ko1 13:32 Follow up: Response: No adverse reaction ko1 13:06 Drug: Methocarbamol PO 500 mg PO once Route: PO; ko1 13:32 Follow up: Response: No adverse reaction ko1 Medication: 13:00 VIS not applicable for this client. ko1 Outcome: 13:34 Discharge ordered by . ec2 13:47 Discharged to home ambulatory, ko1 13:47 Condition: stable 13:47 Discharge instructions given to patient, Instructed on discharge instructions, follow up and referral plans. medication usage, Demonstrated understanding of instructions, follow-up care, medications, Prescriptions given X 1, 13:48 Patient left the ED. ko1 Signatures: Dispatcher [employer] Alecia Galvez rg4 Gabe Woods RN RN ll1 Davina Love RN RN ko1 Ben Patel MD MD ec2
[2023-06-29 14:15] VITALS: TEMP 97.5; O2SAT 100
[2023-06-29 14:42] VITALS: BP 142/90
== END ==
LOC: ER 11:48
DX: S63.91XA Sprain of unspecified part of right wrist and hand, initial encounter (principal); R51.9 Headache, unspecified; W18.30XA Fall on same level, unspecified, initial encounter; Y92.009 Unspecified place in unspecified non-institutional (private) residence as the place of occurrence of the external cause; G89.29 Other chronic pain; Z88.5 Allergy status to narcotic agent; Z88.8 Allergy status to other drugs, medicaments and biological substances
CPT/HCPCS: 70450; 72125

== ENCOUNTER 2024-06-02 16:09 | Emergency (ER) | payer MEDICARE, OTHER ==
[2024-06-02] MEDS ORDERED: DIPHENHYDRAMINE 50 MG/ML VIAL ONE (16:49)
[2024-06-02] MEDS ORDERED: METOCLOPRAMIDE 10 MG/2mL INJ ONE (16:49)
[2024-06-02] MEDS ORDERED: ACETAMINOPHEN 500 MG TAB ONE (16:49)
[2024-06-02 16:59] LABS: Absolute Lymphocytes (CBC) 0.2 K/uL (0.7-4.9); Absolute Monocytes 0.4 K/uL (0.1-1.3); Absolute Neutrophil 3.8 K/uL (1.8-8.0); Basophils % 0.4 % (0-1.3); Eosinophils % 0.7 % (0-4.4); Hematocrit 34.3 % (36.0-45.0); Hemoglobin 11.9 g/dL (12.0-15.0); Lymphocytes % 4.9 % (15.3-44.8); MCH 30.6 pg (27.0-35.0); MCHC 34.5 g/dL (32.0-36.0); MCV 88.7 fL (80-100); MPV 7.7 fL (7.6-11.3); Monocytes % 8.4 % (3.3-12.3); Neutrophils % 85.6 % (41.7-73.7); Nucleated Red Blood Cells % 0.1 % (0-0); Platelets 187 thou/uL (152-406); RBC Red Blood Cell Count 3.87 M/uL (3.86-4.86); Red Cell Distribution Width 13.5 % (12.1-15.2)
[2024-06-02 17:15] LABS: Specific Gravity 1.014 (1.005-1.030); Sqamous Epithelial <5 /HPF (None Seen); Urine Bacteria <20 /HPF (<20); Urine Bilirubin NEGATIVE (Negative); Urine Blood Negative (Negative); Urine Clarity Clear (Clear); Urine Color Light-Yellow (Yellow); Urine Crystals Unidentified Few /HPF (None Seen); Urine Culture Reflex Order NOT NEEDED; Urine Glucose NEGATIVE (Negative); Urine Ketones NEGATIVE (Negative); Urine Microscopic Reflex YN ORDER UMIC; Urine Nitrite NEGATIVE (Negative); Urine Protein NEGATIVE (Negative); Urine RBC <5 /HPF (None Seen); Urine Urobilinogen Normal (Normal); Urine WBC <5 /HPF (<5); Urine pH 7.5 (5.0-7.0)
[2024-06-02 17:16] LABS: PT Prothrombin Time 13.1 SECONDS (9.4-12.5); PTT, Activated Partial Thromb 32.4 SECONDS (24.3-36.9); Protime INR 1.25
[2024-06-02 17:18] LABS: Albumin 3.7 g/dL (3.4-5.0); Bilirubin Total 0.5 mg/dL (0.2-1.0); Globulin 3.6 g/dL (2.3-3.5); Protein, Total 7.3 g/dL (6.4-8.2)
[2024-06-02 17:26] LABS: SARS-CoV-2 Antigen CONTROL BLUE LINE VIS/BG OK
[2024-06-02 17:27] LABS: SARS-CoV-2 Antigen Rapid Res Positive (Negative)
--- NOTE | 2024-06-02 17:44 | RAD REPORT ---
EXAMINATION: ONE VIEW CHEST XR CLINICAL INDICATION: COUGH TECHNIQUE: Frontal chest projection is submitted. Examination is limited by patient positioning and t echnique. COMPARISON: 03/06/2018 FINDINGS: Mild interstitial pulmonary edema is present. The heart is moderately enlarged. No displaced fracture s identified. Cervical hardware plate. IMPRESSION: Mild CHF is possible.
--- NOTE | 2024-06-02 17:59 | ER ---
Nurse's Notes [facility] Name: Bety Ball Age: 78 yrs Sex: Female : 1945 Arrival Date: 06/02/2024 Time: 16:09 Bed 13 Private MD: Diagnosis: SARS-associated coronavirus as the cause of diseases classified elsewhere Presentation: 06/02 16:11 Chief complaint: EMS states: toned out for 101 fever, chills, [place] and nausea. Symptoms me1 started last night. !8g RAC w/NS infusing, zofran 4 mg IV administered. BGL 101. Coronavirus screen: Vaccine status: Patient reports receiving the 2nd dose of the covid vaccine. Ebola Screen: No symptoms or risks identified at this time. Initial Sepsis Screen: Does the patient meet any 2 criteria? HR > 90 bpm. Risk Assessment: Do you want to hurt yourself or someone else? Patient reports no desire to harm self or others. Onset of symptoms was June 01, 2024 at 20:00. 16:11 Method Of Arrival: EMS: [facility] [place] 16:11 Acuity: TAY 3 il1 18:29 Initial Sepsis Screen: Does the patient have a suspected source of infection?. il1 Triage Assessment: 16:15 Headache History: The patient has had previous headaches and this one is similar to me1 previous episodes. General: Appears uncomfortable, ill, well groomed, well developed, well nourished, Behavior is calm, cooperative, appropriate for age. Pain: Complains of pain in head Pain does not radiate. Pain currently is 9 out of 10 on a pain scale. Quality of pain is described as aching, Pain began 1 day ago. Is continuous, Also complains of nausea. EENT: No signs and/or symptoms were reported regarding the EENT system. Neuro: Level of Consciousness is awake, alert, obeys commands, Oriented to person, place, time, situation, Appropriate for age Reports headache. Cardiovascular: Patient's skin is warm and dry. Respiratory: Airway is patent Respiratory effort is even, unlabored, Respiratory pattern is regular, symmetrical. GI: Reports nausea. : No signs and/or symptoms were reported regarding the genitourinary system. Derm: Skin is intact, is healthy with good turgor, Skin is pink, warm \T\ dry. Musculoskeletal: No signs and/or symptoms reported regarding the musculoskeletal system. Historical: - Allergies: 16:15 Afrin; me1 16:15 Fentanyl; me1 16:15 Morphine; me1 16:15 Steroids (migraines); me1 - PMHx: 16:15 Chronic pain; Gastritis/Esophageal; heart valve leaks; Migraines; pulmonary fibrosis; me1 Stomach Ulcers; - Immunization history:: Adult Immunizations up to date. - Infectious Disease History:: Denies. - Social history:: Smoking status: Patient denies any tobacco usage or history of. Screenin:16 [facility] ED Fall Risk Assessment (Adult) History of falling in the last 3 months, me1 including since admission No falls in past 3 months (0 pts) Confusion or Disorientation No (0 pts) Intoxicated or Sedated No (0 pts) Impaired Gait No (0 pts) Mobility Assist Device Used No (0 pt) Altered Elimination No (0 pt) Score/Fall Risk Level 0 - 2 = Low Risk Maintained a safe environment, Provided non-skid footwear, Hourly rounding (assess needs \T\ fall precautionary measures) done. Abuse screen: Denies threats or abuse. Nutritional screening: No deficits noted. Tuberculosis screening: No symptoms or risk factors identified. Assessment: 16:16 General: See triage assessment.. Pain: Complains of pain in head. me1 Vital Signs: 16:11 BP 118 / 71; Pulse 104; Resp 18; Temp 101.5(O); Pulse Ox 99% ; Weight 76.66 kg; Height me1 5 ft. 5 in. ; Pain 9/10; 17:00 BP 118 / 59; Pulse 89; Resp 16; Pulse Ox 98% ; me1 17:58 Pulse 73; ec2 18:00 BP 96 / 45; Pulse 72; Resp 18; Temp 98.9; Pulse Ox 96% ; me1 18:15 Pain 3/10; me1 18:15 Pain 3/10; me1 16:11 Body Mass Index 28.12 (76.66 kg, 165.1 cm) me1 16:11 Pain Scale: Adult me1 18:15 Pain Scale: Adult me1 18:15 Pain Scale: Adult me1 ED Course: 16:10 Patient arrived in ED. [id number] 16:10 Ben Patel MD is Attending Physician. ec2 16:15 Triage completed. me1 16:15 Arm band placed on Patient placed in an exam room. me1 16:16 Patient has correct armband on for positive identification. Bed in low position. Call me1 light in reach. Side rails up X 1. Provided Education on: POC. Verbalized understanding.. Client placed on continuous cardiac and pulse oximetry monitoring. NIBP monitoring applied. cardiac monitor technician on. Pulse ox on. NIBP on. 16:16 No provider procedures requiring assistance completed. me1 16:58 Initial lab(s) drawn, by me, sent to lab. First set of blood cultures drawn by il, me1 Second set of blood cultures drawn by il, EKG done, COVID swab sent to lab. Flu and/or RSV swab sent to lab. 17:04 Influenza Screen (a \T\ B) Sent. me1 17:04 SARS RAPID Sent. me1 17:04 Blood Culture Adult (2) Sent. me1 17:04 CMP Sent. me1 17:04 Lactate w/ 2H reflex if indic. Sent. me1 17:04 Protime (+inr) Sent. me1 17:04 Ptt, Activated Sent. me1 17:04 Urinalysis w/ reflexes Sent. me1 17:04 Maintain EMS IV. Dressing intact. Good blood return noted. Site clean \T\ dry. Gauge \T\ me 1 site: 18g LAC. Flushed with 10 mL NS. 17:32 Chest Single View XRAY In Process Unspecified. EDMS 18:29 IV discontinued, intact, bleeding controlled, No redness/swelling at site. Pressure me1 dressing applied. Administered Medications: 17:07 Drug: NS 0.9% IV 1000 ml IV at 1000 ml once; to be given as a bolus over 60 minutes me1 Route: IV; Rate: 1000 ml; Site: right antecubital; 18:15 Follow up: Response: No adverse reaction; IV Status: Completed infusion; IV Intake: me1 1000ml 17:07 Drug: Acetaminophen PO 1000 mg PO once Route: PO; me1 18:14 Follow up: Response: No adverse reaction me1 17:08 Drug: metoCLOPramide IVP 10 mg IVP once; over 1 to 2 minutes Route: IVP; Site: right me1 antecubital; 18:15 Follow up: Pain 3/10 Adult; Response: No adverse reaction; Pain is decreased me1 17:08 Drug: diphenhydrAMINE IVP 25 mg IVP once Route: IVP; Site: right antecubital; me1 18:15 Follow up: Pain 3/10 Adult; Response: No adverse reaction; Pain is decreased me1 Medication: 16:16 VIS not applicable for this client. me1 Intake: 18:15 IV: 1000ml; Total: 1000ml. me1 Outcome: 17:59 Discharge ordered by . ec2 18:29 Discharged to home via wheelchair, with friend, me1 18:29 Condition: stable 18:29 Discharge instructions given to patient, Instructed on discharge instructions, follow up and referral plans. medication usage, Demonstrated understanding of instructions, follow-up care, medications, Prescriptions given X 2, 18:30 Patient left the ED. me1 Signatures: Dispatcher [employer] Janelle Meneses [id number] Cecilia Jain RN RN me1 Ben Patel MD MD ec2
--- NOTE | 2024-06-02 17:59 | EDPHYS ---
Physician Documentation [facility] Name: Bety Ball Age: 78 yrs Sex: Female : 1945 Arrival Date: 06/02/2024 Time: 16:09 Bed 13 Private MD: ED Physician Ben Patel HPI: 06/02 17:38 This 78 yrs old Female presents to ER via EMS with complaints of Fever, ec2 Headache. 17:38 Patient arrives today for evaluation of URI symptoms along with headache and fevers. ec2 Patient reports several days of symptoms. Reports general fatigue and feeling unwell. Reports history of migraines and feels that her symptoms are being exacerbated by that as well.. Historical: - Allergies: 16:15 Afrin; me1 16:15 Fentanyl; me1 16:15 Morphine; me1 16:15 Steroids (migraines); me1 - PMHx: 16:15 Chronic pain; Gastritis/Esophageal; heart valve leaks; Migraines; pulmonary fibrosis; me1 Stomach Ulcers; - Immunization history:: Adult Immunizations up to date. - Infectious Disease History:: Denies. - Social history:: Smoking status: Patient denies any tobacco usage or history of. ROS: 17:38 Constitutional: as per hpi ec2 Exam: 17:38 Constitutional: GEN: NAD Head: atraumatic Eyes: EOMI Ears: External ears are ec2 normal. CV: Tachycardia LUNGS: no respiratory distress ABD: non-distended SKIN: no evidence of rashes MSK: no evidence of trauma Vital Signs: 16:11 BP 118 / 71; Pulse 104; Resp 18; Temp 101.5(O); Pulse Ox 99% ; Weight 76.66 kg; Height me1 5 ft. 5 in. ; Pain 9/10; 17:00 BP 118 / 59; Pulse 89; Resp 16; Pulse Ox 98% ; me1 17:58 Pulse 73; ec2 18:00 BP 96 / 45; Pulse 72; Resp 18; Temp 98.9; Pulse Ox 96% ; me1 18:15 Pain 3/10; me1 18:15 Pain 3/10; me1 16:11 Body Mass Index 28.12 (76.66 kg, 165.1 cm) me1 16:11 Pain Scale: Adult me1 18:15 Pain Scale: Adult me1 18:15 Pain Scale: Adult me1 MDM: 16:10 Medical Screening Exam initiated ec2 17:37 Data reviewed: vital signs, nurses notes. ED course: Patient arrives today for ec2 evaluation of headache as well as fevers. Examination remarkable for tachycardic individual who is febrile. Lab work ordered, viral swabs sent, chest x-ray is performed.Lab work with reassuring CBC and metabolic profile. Patient is COVID-positive. EKG obtained, independently reviewed and interpreted by me, shows normal sinus rhythm, rate of 78, no acute ST segment elevations, intervals are nonactionable. On reassessment patient with improvement in symptoms. Presented consistent with COVID. Will discharge home with outpatient follow-up PCP. Return precautions given.. 17:38 ED course: DDx considered included processes such as viral infection, anemia, ec2 dehydration. 17:59 ED course: On reassessment patient with improving tachycardia, improvement in symptoms. ec2 Will discharge home. Return precautions given. Presentation consistent with COVID.. 06/02 16:10 Order name: Blood Culture Adult (2) ec2 06/02 16:10 Order name: CBC with Diff; Complete Time: 17:28 ec2 06/02 16:10 Order name: CMP; Complete Time: 17:28 ec2 06/02 16:10 Order name: Lactate w/ 2H reflex if indic.; Complete Time: 17:28 ec2 06/02 16:10 Order name: Protime (+inr); Complete Time: 17:28 ec2 06/02 16:10 Order name: Ptt, Activated; Complete Time: 17:28 ec2 06/02 16:10 Order name: Urinalysis w/ reflexes; Complete Time: 17:28 ec2 06/02 16:29 Order name: Influenza Screen (a \T\ B); Complete Time: 17:37 ec2 06/02 16:29 Order name: SARS RAPID; Complete Time: 17:28 ec2 06/02 16:10 Order name: Chest Single View XRAY; Complete Time: 17:50 ec2 06/02 16:10 Order name: Accucheck; Complete Time: 17:25 ec2 06/02 16:10 Order name: Cardiac monitoring; Complete Time: 18:15 ec2 06/02 16:10 Order name: EKG - Nurse/Tech; Complete Time: 17:37 ec2 06/02 16:10 Order name: IV Saline Lock - Large Bore; Complete Time: 17:24 ec2 06/02 16:10 Order name: Labs collected and sent; Complete Time: 17:24 ec2 06/02 16:10 Order name: O2 Per Protocol; Complete Time: 17:04 ec2 06/02 16:10 Order name: O2 Sat Monitoring; Complete Time: 17:04 ec2 06/02 16:10 Order name: Vital Signs; Complete Time: 17:04 ec2 Administered Medications: 17:07 Drug: NS 0.9% IV 1000 ml IV at 1000 ml once; to be given as a bolus over 60 minutes me1 Route: IV; Rate: 1000 ml; Site: right antecubital; 18:15 Follow up: Response: No adverse reaction; IV Status: Completed infusion; IV Intake: me1 1000ml 17:07 Drug: Acetaminophen PO 1000 mg PO once Route: PO; me1 18:14 Follow up: Response: No adverse reaction me1 17:08 Drug: metoCLOPramide IVP 10 mg IVP once; over 1 to 2 minutes Route: IVP; Site: right me1 antecubital; 18:15 Follow up: Pain 3/10 Adult; Response: No adverse reaction; Pain is decreased me1 17:08 Drug: diphenhydrAMINE IVP 25 mg IVP once Route: IVP; Site: right antecubital; me1 18:15 Follow up: Pain 3/10 Adult; Response: No adverse reaction; Pain is decreased me1 Disposition Summary: 06/02/24 17:59 Discharge Ordered Notes: Location: Home ec2 Condition: Stable ec2 Diagnosis - SARS-associated coronavirus as the cause of diseases classified elsewhere ec2 Followup: ec2 - With: Private Physician - When: - Reason: Re-evaluation by your physician Discharge Instructions: - Discharge Summary Sheet ec2 - COVID-19 ec2 Forms: - Medication Reconciliation Form ec2 - Antibiotic Education ec2 - Prescription Opioid Use ec2 - Patient Portal Instructions ec2 - Leadership Thank You Letter ec2 Prescriptions: - Paxlovid 300 mg (150 mg x 2)-100 mg Oral Tablet, Dose Pack - take 1 dose pack ORAL route per package directions; 1 unit; Refills: 0, Product ec2 Selection Permitted - Reglan 10 mg Oral Tablet - take 1 tablet ORAL route every 6 hours take 30 minutes before meals and at ec2 bedtime; 20 tablet; Refills: 0, Product Selection Permitted Signatures: Dispatcher [employer] Cecilia Chaidez RN RN me1 Ben Patel MD MD ec2 Corrections: (The following items were deleted from the chart) 16:11 16:11 BLOOD CULTURE*+BA.LAB.BRZ ordered. EDMS EDMS 16:11 16:11 CBC+H.LAB.BRZ ordered. EDMS EDMS 16:11 16:11 COMPREHENSIVE METABOLIC PANEL+C.LAB.BRZ ordered. EDMS EDMS 16:11 16:11 LACTATE+C.LAB.BRZ ordered. EDMS EDMS 16:11 16:11 PROTIME (+INR)+COAG.LAB.BRZ ordered. EDMS EDMS 16:11 16:11 PTT, ACTIVATED+COAG.LAB.BRZ ordered. EDMS EDMS 16:11 16:11 Urinalysis+U.LAB.BRZ ordered. EDMS EDMS 16:11 16:11 Chest Single View+RAD.RAD.BRZ ordered. EDMS EDMS
[2024-06-02 18:55] VITALS: BP 96/45; TEMP 98.9; O2SAT 96
== END 2024-06-02 18:30 | disposition home or self-care (01) ==
LOC: ER 16:09
DX: U07.1 COVID-19 (principal)
CPT/HCPCS: 96361; 93005; 87040 ×2; 85025; 81001; 36415; 85610; 83605; 85730; 80053; 87804 ×2; 71045; 96375; 96374; 99285; 87811; J2765; J1200